=== PATIENT | female | born 1980 | race American Indian/Alaskan Native ===

== ENCOUNTER 2017-03-13 08:36 | Emergency (ER) | payer MEDICAID ==
[2017-03-13 08:46] VITALS: O2SAT 100; BMI 21.6
--- NOTE | 2017-03-13 09:58 | RAD ---
HISTORY: chest pain COMPARISON: 09/19/2016 TECHNIQUE: Chest PA and lateral FINDINGS: LUNGS: No active pulmonary disease. PLEURA: No significant pleural effusion identified. No pneumothorax apparent. CARDIOVASCULAR: Normal. OSSEOUS STRUCTURES: No significant abnormalities. VISUALIZED UPPER ABDOMEN: Normal. OTHER FINDINGS: None. IMPRESSION: No active disease.
[2017-03-13] MEDS ORDERED: guaiFENesin 200 mg/10 ml Syrup UD PO STA (10:04)
--- NOTE | 2017-03-13 10:08 | ED PDOC ---
Arrival/HPI - General Chief Complaint: Chest Pain Time Seen by Provider: 03/13/17 09:05 Historian: Patient - History of Present Illness Narrative History of Present Illness (Text): 03/13/17 10:05 36yo female who present with complaint of upper back and chest pain with deep inspiration and movement. States she started having nonproductive cough yesterday. Pain also started yesterday. Did not take any medication for the pain. Denies SOB, diaphoresis, LE edema, calf pain, fever, chills, sick contact , recent exertion, recent travel, any other complaint. Past Medical History - Provider Review Nursing Documentation Reviewed: Yes - Past History Past History: Non-Contributing - Infectious Disease Hx of Infectious Diseases: None - Tetanus Immunization Tetanus Immunization: Unknown - Past Medical History Past Medical History: No Previous - Cardiac Hx Cardiac Disorders: No - Pulmonary Hx Respiratory Disorders: No - Neurological Hx Neurological Disorder: No - HEENT Hx HEENT Disorder: No - Renal Hx Renal Disorder: Yes Hx Kidney Stones: Yes Other/Comment: Left renal cyst - Endocrine/Metabolic Hx Endocrine Disorders: No - Hematological/Oncological Hx Blood Disorders: No - Integumentary Hx Dermatological Disorder: No - Musculoskeletal/Rheumatological Hx Musculoskeletal Disorders: No - Gastrointestinal Hx Gastrointestinal Disorders: No - Genitourinary/Gynecological Hx Genitourinary Disorders: No - Psychiatric Hx Depression: No Hx Substance Use: No - Surgical History Hx Tubal Ligation: Yes Other/Comment: CYST REMOVED FROM LEFT KIDNEY - Anesthesia Hx Anesthesia: Yes Hx Anesthesia Reactions: No Hx Malignant Hyperthermia: No - Suicidal Assessment Feels Threatened In Home Enviroment: No Family/Social History - Physician Review Nursing Documentation Reviewed: Yes Family/Social History: Unknown Family HX Smoking Status: Light Smoker < 10 Cigarettes Daily Hx Alcohol Use: Yes Frequency of alcohol use: Socially Hx Substance Use: No Hx Substance Use Treatment: Yes Allergies/Home Meds Allergies/Adverse Reactions: Allergies No Known Allergies Allergy (Verified 03/13/17 09:07) Review of Systems - Physician Review All systems were reviewed & negative as marked: Yes - Review of Systems Constitutional: Normal Eyes: Normal ENT: Normal Respiratory: Cough. absent: SOB, Sputum, Wheezing Cardiovascular: Chest Pain Gastrointestinal: Normal Genitourinary Female: Normal Musculoskeletal: Back Pain Skin: Normal Neurological: Normal Endocrine: Normal Hemo/Lymphatic: Normal Psychiatric: Normal Physical Exam Vital Signs Reviewed: Yes Vital Signs Temp Pulse Resp BP Pulse Ox 03/13/17 10:36 97.8 F 72 16 112/72 100 03/13/17 09:37 69 18 128/89 100 03/13/17 08:45 98.0 F 74 18 131/92 H 100 Temperature: Afebrile Blood Pressure: Normal Pulse: Regular Respiratory Rate: Normal Appearance: Positive for: Well-Appearing, Non-Toxic, Comfortable Pain Distress: None Mental Status: Positive for: Alert and Oriented X 3 - Systems Exam Head: Present: Atraumatic, Normocephalic Pupils: Present: PERRL Extroacular Muscles: Present: EOMI Conjunctiva: Present: Normal Mouth: Present: Moist Mucous Membranes Neck: Present: Normal Range of Motion Respiratory/Chest: Present: Clear to Auscultation, Good Air Exchange. No: Respiratory Distress, Accessory Muscle Use, Wheezes, Decreased Breath Sounds, Rales, Retracting, Rhonchi Cardiovascular: Present: Regular Rate and Rhythm, Normal S1, S2. No: Murmurs Abdomen: Present: Normal Bowel Sounds. No: Tenderness, Distention, Peritoneal Signs Back: Present: Paraspinal Tenderness (Parathoracic tenderness) Upper Extremity: Present: Normal Inspection. No: Cyanosis, Edema Lower Extremity: Present: Normal Inspection. No: Edema Neurological: Present: GCS=15, CN II-XII Intact, Speech Normal Skin: Present: Warm, Dry, Normal Color. No: Rashes Psychiatric: Present: Alert, Oriented x 3, Normal Insight, Normal Concentration Medical Decision Making ED Course and Treatment: 03/13/17 14:48 Pt presented for stated history. She was hemodynamically stable in ED. Appear comfortable and non hypoxic. Her pain appear MS in origin. CXR NAD EKG Sinus rhythm with short CO @ 94bpm. No ST changes noted. PT treated with NSIAD and antitussive and DC home with similar medication. Referred to her PMD. Advised TRT ED for any new or worsening symptoms. - RAD Interpretation Radiology Orders: 03/13/17 09:21 CHEST TWO VIEWS (PA/LAT) [RAD] Stat - Medication Orders Current Medication Orders: Discontinued Medications Guaifenesin (Robitussin) 200 mg PO ONCE STA Stop: 03/13/17 10:05 Ketorolac Tromethamine (Toradol) 60 mg IM STAT STA Stop: 03/13/17 09:22 Last Admin: 05/04/17 09:36 Dose: 60 mg Disposition/Present on Arrival - Present on Arrival Any Indicators Present on Arrival: No History of DVT/PE: No History of Uncontrolled Diabetes: No Urinary Catheter: No History of Decub. Ulcer: No History Surgical Site Infection Following: None - Disposition Have Diagnosis and Disposition been Completed?: Yes Diagnosis: Chest pain, Back pain, Cough Disposition: HOME/ ROUTINE Disposition Time: 10:10 Patient Plan: Discharge Condition: STABLE Discharge Instructions (ExitCare): Chest Pain (ED) Additional Instructions: Follow up with your doctor Return to ED for any new or worsening symptoms Prescriptions: Benzonatate [Tessalon Perle] 100 mg PO TID #20 capsule Ibuprofen [Motrin Tab] 600 mg PO Q6 #20 tab Referrals: Edgardo Suresh MD [Primary Care Provider] - Follow up with primary
[2017-03-13 10:37] VITALS: BP 112/72; PULSE 72; RESP 16; TEMP 97.8
--- NOTE | 2017-03-13 17:13 | CARD ---
APPROVED REPORT EKG Measurement Heart [id number] <Conclusion> Sinus rhythm with short UT Otherwise normal ECG
== END 2017-03-13 10:36 | disposition home or self-care (01) ==
LOC: ED 08:36
DX: R07.9 Chest pain, unspecified (principal); M54.9 Dorsalgia, unspecified; R05 Cough
CPT/HCPCS: 71020; 93005; 96372; 99283; J1885

== ENCOUNTER 2018-01-08 09:33 | Inpatient (IN) | payer MEDICAID ==
[2018-01-08 09:41] VITALS: BMI 22.7
[2018-01-08] MEDS ORDERED: Sodium Chloride 0.9% 1,000 ML IV STA ×2 (09:56→15:12)
[2018-01-08] MEDS ORDERED: Iohexol 240 (50 ml) ONE (10:00)
--- NOTE | 2018-01-08 10:03 | ED PDOC ---
Arrival/HPI - General Chief Complaint: Abdominal Pain Time Seen by Provider: 01/08/18 09:39 Historian: Patient - History of Present Illness Narrative History of Present Illness (Text): 01/08/18 10:00 37 year old female, whose past medical history includes kidney stones, who presents to the emergency department for blood in stool since 3 days ago. Patient reports she has noticed dark stool with bright red blood associated with left sided abdominal pain and vomiting x2 with blood. BRB stool at least 2- 3 times daily. Some lightheadedness at times when she stands up. She also states having a migraine due to light sensitivity. Patient denies chest pain, shortness of breath, cough, diarrhea, or other complaints. Her last menstrual period was 12/30/2017. PMD: Dr. Suresh 01/08/18 13:46 Time/Duration: < week (3 days) Symptom Onset: Sudden Symptom Course: Unchanged Activities at Onset: Light Context: Home Past Medical History - Provider Review Nursing Documentation Reviewed: Yes - Past History Past History: Non-Contributing - Infectious Disease Hx of Infectious Diseases: None - Tetanus Immunization Tetanus Immunization: Unknown - Past Medical History Past Medical History: No Previous - Cardiac Hx Cardiac Disorders: No - Pulmonary Hx Respiratory Disorders: No - Neurological Hx Seizures: Yes - HEENT Hx HEENT Disorder: No - Renal Hx Renal Disorder: Yes Hx Kidney Stones: Yes Other/Comment: Left renal cyst - Endocrine/Metabolic Hx Endocrine Disorders: No - Hematological/Oncological Hx Blood Disorders: No - Integumentary Hx Dermatological Disorder: No - Musculoskeletal/Rheumatological Hx Musculoskeletal Disorders: No - Gastrointestinal Hx Gastrointestinal Disorders: No - Genitourinary/Gynecological Hx Genitourinary Disorders: No - Psychiatric Hx Depression: No Hx Substance Use: No - Surgical History Hx Tubal Ligation: Yes Other/Comment: CYST REMOVED FROM LEFT KIDNEY - Anesthesia Hx Anesthesia: Yes Hx Anesthesia Reactions: No Hx Malignant Hyperthermia: No - Suicidal Assessment Feels Threatened In Home Enviroment: No Family/Social History - Physician Review Nursing Documentation Reviewed: Yes Family/Social History: Unknown Family HX Smoking Status: Light Smoker < 10 Cigarettes Daily Hx Alcohol Use: Yes Hx Substance Use: No Hx Substance Use Treatment: Yes Allergies/Home Meds Allergies/Adverse Reactions: Allergies No Known Allergies Allergy (Verified 01/08/18 09:50) Home Medications: Home Meds Medication Instructions Recorded Confirmed No Known Home Med 01/08/18 01/08/18 Review of Systems - Review of Systems Constitutional: absent: Fevers Respiratory: absent: SOB Cardiovascular: absent: Chest Pain Gastrointestinal: Abdominal Pain (left sided region), Vomiting, Hematochezia, Hematemesis. absent: Diarrhea Genitourinary Female: absent: Dysuria, Frequency, Hematuria Musculoskeletal: absent: Back Pain Skin: absent: Rash Neurological: Headache Endocrine: absent: Polyuria Physical Exam Vital Signs Reviewed: Yes Vital Signs Temp Pulse Resp BP Pulse Ox 01/08/18 11:19 87 18 131/86 100 01/08/18 09:40 98.2 F 89 18 138/89 100 Temperature: Afebrile Blood Pressure: Normal Pulse: Regular Respiratory Rate: Normal Appearance: Positive for: Well-Appearing, Non-Toxic, Comfortable Pain Distress: None Mental Status: Positive for: Alert and Oriented X 3 - Systems Exam Head: Present: Atraumatic, Normocephalic Pupils: Present: PERRL Extroacular Muscles: Present: EOMI Conjunctiva: Present: Normal Mouth: Present: Moist Mucous Membranes Respiratory/Chest: Present: Clear to Auscultation, Good Air Exchange. No: Respiratory Distress, Accessory Muscle Use, Wheezes, Rales, Retracting, Rhonchi Cardiovascular: Present: Regular Rate and Rhythm, Normal S1, S2. No: Murmurs Abdomen: Present: Tenderness (left upper quadrant ), Normal Bowel Sounds, Guarding (LUQ and left mid abdomen). No: Distention, Peritoneal Signs Rectal: Present: Other (dark stook but no blood. supply room clerk: Alvina Dmitry). No : Hemorrhoids, Fissures Genitourinary/Pelvic Exam: Present: Normal External Genitalia, Vaginal Bleeding (mild amount of blood). No: Vaginal Discharge, Vaginal Lesions Back: Present: Normal Inspection. No: Midline Tenderness, Paraspinal Tenderness Lower Extremity: Present: Normal Inspection. No: Edema Neurological: Present: GCS=15, CN II-XII Intact, Speech Normal Skin: Present: Warm, Dry, Normal Color. No: Rashes Psychiatric: Present: Alert, Oriented x 3, Normal Insight, Normal Concentration Medical Decision Making ED Course and Treatment: 01/08/18 Impression: 37 year old female with LUQ tenderness with guarding and dark stool but no blood. Differential Diagnosis included but are not limited to: GI bleed vs. diverticulitis vs. pancreatitis Plan: -- CT abdomen and pelvis -- Labs -- Protonix and Sodium Chloride -- Reassess and disposition Progress Notes: 01/08/18 13:47 Patient felt pain improve with Protonix and fluids IV. Pain has returned so will treat with Morphine IV. Patient's CT shows colitis with diverticulosis. Cipro and Flagyl IV started. Continue hydration. Patient still having symptoms. Abdomen soft and tender left sided abdomen with gaurding. No rebound. 01/08/18 13:[address] Lamberto Martinez for further GI care for this patient. Will place patient on remote telemetry observation for Gi bleed, colitis, diverticulsosis. 01/08/18 13:59 Accession No. : [id number] Patient Name / ID : ELISABET HARDEN / [id number] Creator : Freeman Ramirez MD PROCEDURE: CT Abdomen and Pelvis with contrast IMPRESSION: There is mild mural thickening in the ascending and descending colon. This is consistent with mild colitis. There is also diverticulosis of the sigmoid colon. - Lab Interpretations Lab Results: 01/08/18 10:30 01/08/18 10:30 Lab Results 01/08/18 10:30: Sodium 142, Potassium 3.7, Chloride 105, Carbon Dioxide 23, Anion Gap 18, BUN 7, Creatinine 0.6 L, Est GFR ( Amer) > 60, Est GFR (Non -Af Amer) > 60, Random Glucose 88, Calcium 9.1, Total Bilirubin 0.2, AST 33, ALT 23, Alkaline Phosphatase 32 L, Total Protein 6.9, Albumin 4.1, Globulin 2.8 , Albumin/Globulin Ratio 1.4, Triglycerides 162 H, Cholesterol 143, LDL Cholesterol Direct 42, HDL Cholesterol 86 H, Lipase 83 01/08/18 10:30: PT 12.4, INR 1.08, APTT 25.3 01/08/18 10:30: WBC 5.1, RBC 3.70, Hgb 12.1, Hct 35.1 L, MCV 94.9, MCH 32.7, MCHC 34.5, RDW 14.3, Plt Count 226, MPV 9.4, Gran % 39.8 L, Lymph % (Auto) 51.7 H, [place] % (Auto) 5.7, Eos % (Auto) 2.0, Baso % (Auto) 0.8, Gran # 2.02, Lymph # (Auto) 2.6, [place] # (Auto) 0.3, Eos # (Auto) 0.1, Baso # (Auto) 0.04 I have reviewed the lab results: Yes - RAD Interpretation Radiology Orders: 01/08/18 09:56 ABD PELVIS PO & IV CONTRAST [CT] Stat Tax Intern: Radiologist - Medication Orders Current Medication Orders: Ciprofloxacin (Cipro 400mg/200ml Dsw) 400 mg in 200 mls @ 133.3 mls/hr IVPB STAT STA PRN Reason: Protocol Stop: 01/08/18 14:37 Metronidazole (Flagyl) 500 mg in 100 mls @ 100 mls/hr IVPB STAT STA PRN Reason: Protocol Stop: 01/08/18 14:06 Discontinued Medications Sodium Chloride (Sodium Chloride 0.9%) 1,000 mls @ 1,000 mls/hr IV .Q1H STA Stop: 01/08/18 10:55 Last Admin: 01/08/18 10:15 Dose: 1,000 mls/hr eMAR Start Stop Document 01/08/18 10:15 ASHKAN (Rec: 01/08/18 10:16 ASHKAN [id number]) Intravenous Solution Start Date 01/08/18 Start Time 10:16 End Date 01/08/18 End time 11:16 Total Infusion Time 60 Morphine Sulfate (Morphine) 4 mg IVP STAT STA Stop: 01/08/18 13:47 Pantoprazole Sodium (Protonix Inj) 80 mg IVP STAT STA Stop: 01/08/18 09:58 Last Admin: 01/08/18 10:17 Dose: 80 mg IVP Administration Document 01/08/18 10:17 ASHKAN (Rec: 01/08/18 10:17 ASHKAN [id number]) Charges for Administration # of IVP Administrations 1 - Scribe Statement The provider has reviewed the documentation as recorded by the Myah Andres Provider Scribe Attestation: All medical record entries made by the Scribe were at my direction and personally dictated by me. I have reviewed the chart and agree that the record accurately reflects my personal performance of the history, physical exam, medical decision making, and the department course for this patient. I have also personally directed, reviewed, and agree with the discharge instructions and disposition. Disposition/Present on Arrival - Present on Arrival Any Indicators Present on Arrival: No History of DVT/PE: No History of Uncontrolled Diabetes: No Urinary Catheter: No History of Decub. Ulcer: No History Surgical Site Infection Following: None - Disposition Have Diagnosis and Disposition been Completed?: Yes Diagnosis: GI bleed, Diverticulosis, Colitis Disposition: HOSPITALIZED Disposition Time: 13:49 Patient Plan: Observation Patient Problems: Current Active Problems Problem Status Onset GI bleed Acute Diverticulosis Acute Colitis Acute Condition: FAIR Referrals: [employer] Radha Req, [Primary Care Provider] - Follow up with primary Forms: [employer] (Indonesian)
[2018-01-08 10:48] LABS: BASO # 0.04 K/mm3 (0.0-2.0); BASO % 0.8 % (0.0-3.0); EOS # 0.1 (0.0-0.7); GRAN # 2.02 (1.4-6.5); GRAN % 39.8 % (50.0-68.0); HEMOGLOBIN 12.1 g/dL (12.0-16.0); LYMPH # 2.6 (1.2-3.4); LYMPH % 51.7 % (22.0-35.0); MEAN CELL VOLUME 94.9 fl (80.0-105.0); MEAN CORPUSCULAR HEMOGLOBIN 32.7 pg (25.0-35.0); MEAN CORPUSCULAR HGB CONC 34.5 g/dl (31.0-37.0); MEAN PLATELET VOLUME 9.4 fl (7.0-11.0); MONO # 0.3 (0.1-0.6); MONO % 5.7 % (1.0-6.0); RBC 3.7 10^6/uL (3.5-6.1); RED CELL DISTRIBUTION WIDTH 14.3 % (11.5-14.5); WHITE BLOOD COUNT 5.1 10^3/ul (4.5-11.0)
[2018-01-08 10:52] LABS: ALB/GLOB RATIO 1.4 (1.1-1.8); ALBUMIN 4.1 g/dL (3.0-4.8); ALT/SGPT 23 U/L (7-56); AST/SGOT 33 U/L (14-36); BLOOD UREA NITROGEN 7 mg/dL (7-21); CALCIUM 9.1 mg/dL (8.4-10.5); GFR AFRICAN-AMERICAN > 60; GFR NON-AFRICAN AMERICAN > 60; HDL CHOLESTEROL 86 mg/dL (29-60); LIPASE 83 U/L (23-300)
[2018-01-08 10:53] LABS: INR 1.08 (0.93-1.08); PARTIAL THROMBOPLASTIN TIME 25.3 Seconds (25.1-36.5); PROTHROMBIN TIME 12.4 SECONDS (9.4-12.5)
[2018-01-08 11:03] LABS: LDL CHOLESTEROL 42 mg/dL (0-129)
[2018-01-08] MEDS ORDERED: Iohexol 350 MG/100 ML VIAL ONE (11:46)
--- NOTE | 2018-01-08 12:53 | CT ---
PROCEDURE: CT Abdomen and Pelvis with contrast HISTORY: left sided abdominal pain r/o colitis r/o divertic COMPARISON: 11/15/2016 TECHNIQUE: Contrast dose: 100 cc of Omni 350 Radiation dose: Total exam DLP = 379 mGy-cm. This CT exam was performed using one or more of the following dose reduction techniques: Automated exposure control, adjustment of the mA and/or kV according to patient size, and/or use of iterative reconstruction technique. FINDINGS: LOWER THORAX: Unremarkable. LIVER: Unremarkable. No gross lesion or ductal dilatation. GALLBLADDER AND BILE DUCTS: Unremarkable. PANCREAS: Unremarkable. No gross lesion or ductal dilatation. SPLEEN: Unremarkable. ADRENALS: Unremarkable. No mass. KIDNEYS AND URETERS: There is a calcified scar in the left upper pole. The right kidney is unremarkable VASCULATURE: Unremarkable. No aortic aneurysm. BOWEL: There is mild mural thickening in the ascending and descending colon. This is consistent with mild colitis. There is also diverticulosis of the sigmoid colon. APPENDIX: Normal appendix. PERITONEUM: Unremarkable. No free fluid. No free air. LYMPH NODES: Unremarkable. No enlarged lymph nodes. BLADDER: Unremarkable. REPRODUCTIVE: Unremarkable. BONES: No acute fracture. OTHER FINDINGS: None. IMPRESSION: There is mild mural thickening in the ascending and descending colon. This is consistent with mild colitis. There is also diverticulosis of the sigmoid colon.
[2018-01-08] MEDS ORDERED: Ciprofloxacin 400mg/200ml D5W 400 MG/200 ML BAG IVPB STA (13:07)
[2018-01-08] MEDS ORDERED: metroNIDAZOLE IV 500 mg/100 ml 500 MG/100 ML BAG IVPB STA (13:07)
[2018-01-08] MEDS ORDERED: Morphine 4 mg/ml ISec IVP STA (13:46)
[2018-01-08] MEDS ORDERED: Morphine 2 mg/ml ISec IVP PRN (15:10)
--- NOTE | 2018-01-08 15:36 | CP.PCM.HP ---
<NikhilNeyda - Last Filed: 01/08/18 18:06> History of Present Illness - History of Present Illness History of Present Illness: CC: bloody emesis x2 HPI: Patient is a 37 YO female with PMH of nephrolithiasis who presents to the [facility] ED with bilious bloody emesis x2 this morning. Patient describes the vomit as a mix of light red/pink blood and green liquid. Patient also had crampy left sided abdominal pain just under the rib cage associated with the episodes. Abdominal pain has been ongoing for a few days. Patient admits to bloody bowel movements which started 3 days ago. Patient saw dark brown colored blood in the stool. Stool was more loose than usual. Patient has never had anything like this before. Patient admits to subjective fever, chills, nausea prior to vomiting, migraine x3 days, bloody diarrhea, abdominal pain. Patient denies chest pain, SOB, pain with defecation, urinary symptoms. PMH: nephrolithiasis Surgical hx: tubal ligation - 2007 , left cyst removal, lithotripsy - 7 months ago Allergies: NKDA Medications: denies Social hx: smokes 1/2 PPD x7 years, drinks every weekend, denies drug use Present on Admission - Present on Admission Any Indicators Present on Admission: No History of DVT/PE: No History of Uncontrolled Diabetes: No Review of Systems - Review of Systems All systems: reviewed and no additional remarkable complaints except Review of Systems: As per HPI Past Patient History - Infectious Disease Hx of Infectious Diseases: None - Tetanus Immunizations Tetanus Immunization: Unknown - Past Social History Smoking Status: Light Smoker < 10 Cigarettes Daily - CARDIAC Hx Cardiac Disorders: No - PULMONARY Hx Respiratory Disorders: No - NEUROLOGICAL Hx Seizures: Yes - HEENT Hx HEENT Problems: No - RENAL Hx Chronic Kidney Disease: Yes Hx Kidney Stones: Yes Other/Comment: Left renal cyst - ENDOCRINE/METABOLIC Hx Endocrine Disorders: No - HEMATOLOGICAL/ONCOLOGICAL Hx Blood Disorders: No - INTEGUMENTARY Hx Dermatological Problems: No - MUSCULOSKELETAL/RHEUMATOLOGICAL Hx Musculoskeletal Disorders: No - GASTROINTESTINAL Hx Gastrointestinal Disorders: No - GENITOURINARY/GYNECOLOGICAL Hx Genitourinary Disorders: No - PSYCHIATRIC Hx Depression: No Hx Substance Use: No - SURGICAL HISTORY Hx Tubal Ligation: Yes Other/Comment: CYST REMOVED FROM LEFT KIDNEY - ANESTHESIA Hx Anesthesia: Yes Hx Anesthesia Reactions: No Hx Malignant Hyperthermia: No Meds Allergies/Adverse Reactions: Allergies Allergy/AdvReac Type Severity Reaction Status Date / Time No Known Allergies Allergy Verified 01/08/18 09:50 Physical Exam - Head Exam Head Exam: ATRAUMATIC, NORMOCEPHALIC - Eye Exam Eye Exam: Normal appearance - ENT Exam ENT Exam: Mucous Membranes Moist - Neck Exam Neck exam: Positive for: Normal Inspection - Respiratory Exam Respiratory Exam: Clear to Auscultation Bilateral, NORMAL BREATHING PATTERN. absent: Accessory Muscle Use, Rales, Rhonchi, Wheezes, Respiratory Distress - Cardiovascular Exam Cardiovascular Exam: REGULAR RHYTHM, RRR, +S1, +S2. absent: Tachycardia - GI/Abdominal Exam GI & Abdominal Exam: Soft, Tenderness. absent: Distended, Firm, Guarding, Rebound, Rigid - Extremities Exam Extremities exam: Positive for: normal inspection - Neurological Exam Neurological exam: Alert, Oriented x3 - Skin Skin Exam: Dry, Intact Results - Vital Signs Recent Vital Signs: Last Vital Signs Temp 98.2 F 01/08/18 09:40 Pulse 87 01/08/18 11:19 Resp 18 01/08/18 11:19 BP 131/86 01/08/18 11:19 Pulse Ox 100 01/08/18 11:19 - Labs Result Diagrams: 01/08/18 10:30 01/08/18 10:30 Assessment & Plan - Assessment and Plan (Free Text) Assessment: Colitis Abdominal pain, nausea, vomiting, diarrhea CT abdomen/pelvis ascending and descending mural wall thickening consistent with Colitis, sigmoid diverticulosis NS @ 100cc/hr Val[facility] P[facility] GI Consult: Dr. Castaneda ED: radha Plunkett Diet:NPO Nausea: Zofran IVP Pain: Morphine 2mg IVP Q6H PRN Pain Prophylaxis Protonix SCDs discussed with Dr. Rodas - Date & Time Date: 01/08/18 Time: 15:39 <Mandi Rodas - Last Filed: 01/08/18 21:12> Results - Vital Signs Recent Vital Signs: Last Vital Signs Temp 98.2 F 01/08/18 16:53 Pulse 92 H 01/08/18 18:00 Resp 18 01/08/18 16:53 BP 131/86 01/08/18 16:53 Pulse Ox 100 01/08/18 16:00 - Labs Result Diagrams: 01/08/18 10:30 01/08/18 10:30 Labs: Laboratory Results - last 24 hr 01/08/18 01/08/18 15:15 17:00 Blood Type A POSITIVE Blood Type Confirm A POSITIVE Antibody Screen Negative BBK History Checked No verified bt Attending/Attestation - Attestation I have personally seen and examined this patient.: Yes I have fully participated in the care of the patient.: Yes I have reviewed all pertinent clinical information: Yes Notes (Text): 01/08/18 21:09 37 year old female who presented with complaint of left sided abdominal pain, nausea, vomiting and diarrhea. CT abd/pelvis showed mild ascending/descending colitis and sigmoid diverticulosis. Continue with NPO, IVF, analgesics and antibiotics. GI evaluation is requested. Mandi Rodas MD Hospitalist.
[2018-01-08] MEDS: Sodium Chloride 0.9% 1,000 ML IV SCH (16:50)
[2018-01-08] MEDS: Morphine 2 mg/ml ISec IVP PRN ×2 (16:54→21:55)
[2018-01-08] MEDS ORDERED: Influenza Vaccine 60 mcg/0.5 mL SYR (4YR UP) IM ONE (17:11)
[2018-01-08] MEDS ORDERED: Pneumococcal 23-Valent Vaccine IM ONE (17:11)
[2018-01-08] MEDS: metroNIDAZOLE IV 500 mg/100 ml 500 MG/100 ML BAG IVPB SCH (21:55)
[2018-01-09] MEDS: Morphine 2 mg/ml ISec IVP PRN ×4 (04:36→19:31)
[2018-01-09] MEDS: metroNIDAZOLE IV 500 mg/100 ml 500 MG/100 ML BAG IVPB SCH ×3 (06:09→21:28)
--- NOTE | 2018-01-09 11:56 | CP.PCM.PN ---
<NikhilNeyda - Last Filed: 01/09/18 13:50> Subjective - Date & Time of Evaluation Date of Evaluation: 01/09/18 Time of Evaluation: 11:45 - Subjective Subjective: Progress Note Patient seen and examined at bedside. Patient tolerating pain, but still has pain on left upper and lower quadrants. Patient states since the last interview patient did not have diarrhea until this morning 01/09/18. Patient also complains of a burning feeling in midepigastric and left upper quadrant. Objective - Vital Signs/Intake and Output Vital Signs (last 24 hours): Temp Pulse Resp BP Pulse Ox 98.4 F 74 18 123/92 H 100 01/09/18 08:23 01/09/18 08:23 01/09/18 08:23 01/09/18 08:23 01/09/18 08:23 - Medications Medications: Current Medications Acetaminophen (Tylenol 325mg Tab) 650 mg PO Q4H PRN PRN Reason: Fever >100.5 F Famotidine (Pepcid) 20 mg IVP DAILY [facility] Last Admin: 01/09/18 09:08 Dose: 20 mg Sodium Chloride (Sodium Chloride 0.9%) 1,000 mls @ 100 mls/hr IV .Q10H [facility] Last Admin: 01/08/18 16:50 Dose: 100 mls/hr Metronidazole (Flagyl) 500 mg in 100 mls @ 100 mls/hr IVPB Q8H [facility] PRN Reason: Protocol Last Admin: 01/09/18 06:09 Dose: 100 mls/hr Ceftriaxone Sodium 500 mg/ (Sodium Chloride) 100 mls @ 100 mls/hr IVPB Q12 [facility] PRN Reason: Protocol Stop: 01/13/18 22:59 Morphine Sulfate (Morphine) 1 mg IVP Q6H PRN PRN Reason: Pain, moderate (4-7) Last Admin: 01/09/18 04:36 Dose: 1 mg Morphine Sulfate (Morphine) 2 mg IVP Q6H PRN PRN Reason: Pain, severe (8-10) Last Admin: 01/09/18 08:09 Dose: 2 mg Ondansetron HCl (Zofran Inj) 4 mg IVP Q4H PRN PRN Reason: Nausea/Vomiting Last Admin: 01/08/18 21:56 Dose: 4 mg Ondansetron HCl (Zofran Tab) 4 mg PO Q8H PRN PRN Reason: Nausea/Vomiting - Labs Labs: PT 12.4 SECONDS (9.4-12.5) 01/08/18 10:30 INR 1.08 (0.93-1.08) 01/08/18 10:30 APTT 25.3 Seconds (25.1-36.5) 01/08/18 10:30 - Constitutional Appears: Non-toxic, No Acute Distress - Head Exam Head Exam: ATRAUMATIC, NORMAL INSPECTION, NORMOCEPHALIC - Eye Exam Eye Exam: EOMI, Normal appearance, PERRL. absent: Scleral icterus Pupil Exam: NORMAL ACCOMODATION, PERRL - ENT Exam ENT Exam: Mucous Membranes Moist - Neck Exam Neck Exam: Full ROM, Normal Inspection - Respiratory Exam Respiratory Exam: Clear to Ausculation Bilateral, NORMAL BREATHING PATTERN. absent: Accessory Muscle Use - Cardiovascular Exam Cardiovascular Exam: REGULAR RHYTHM, +S1, +S2 - GI/Abdominal Exam GI & Abdominal Exam: Soft, Tenderness (left upper and left lower quadrant. no tenderness on right upper or lower quadrant). absent: Distended, Guarding, Rigid, Diminished Bowel Sounds, Pulsatile Mass, Rebound - Extremities Exam Extremities Exam: Full ROM, Normal Capillary Refill, Normal Inspection. absent : Pedal Edema - Back Exam Back Exam: Full ROM, NORMAL INSPECTION - Neurological Exam Neurological Exam: Alert, Awake, CN II-XII Intact, Oriented x3 - Psychiatric Exam Psychiatric exam: Normal Affect, Normal Mood - Skin Skin Exam: Dry, Intact, Normal Color, Warm Assessment and Plan - Assessment and Plan (Free Text) Assessment: 37F with no pmh, presents with abdominal pain, hematemasis and bloody diarrhea, found to have ascending and descending wall thickening indicative of colitis, and sigmoid diverticulosis on CT scan abdomen/pelvis Colitis Abdominal pain, nausea, vomiting, diarrhea CT abdomen/pelvis ascending and descending mural wall thickening consistent with Colitis, sigmoid diverticulosis NS @ 100cc/hr [facility] GI Consult: Dr. Castaneda ED: radha Plunkett Patient is on Rocephinradha Diet: advanced to liquid diet Nausea: Zofran IVP Pain: Morphine 2mg IVP Q6H PRN Pain Prophylaxis Protonix SCDs discussed with Dr. Rodas <Mandi Rodas - Last Filed: 01/09/18 14:15> Objective - Vital Signs/Intake and Output Vital Signs (last 24 hours): Temp Pulse Resp BP Pulse Ox 98.4 F 74 18 123/92 H 100 01/09/18 08:23 01/09/18 08:23 01/09/18 08:23 01/09/18 08:23 01/09/18 08:23 - Medications Medications: Current Medications Acetaminophen (Tylenol 325mg Tab) 650 mg PO Q4H PRN PRN Reason: Fever >100.5 F Famotidine (Pepcid) 20 mg IVP DAILY [facility] Last Admin: 01/09/18 09:08 Dose: 20 mg Sodium Chloride (Sodium Chloride 0.9%) 1,000 mls @ 100 mls/hr IV .Q10H [facility] Last Admin: 01/09/18 12:46 Dose: 100 mls/hr Metronidazole (Flagyl) 500 mg in 100 mls @ 100 mls/hr IVPB Q8H [facility] PRN Reason: Protocol Last Admin: 01/09/18 12:46 Dose: 100 mls/hr Ceftriaxone Sodium 500 mg/ (Sodium Chloride) 100 mls @ 100 mls/hr IVPB Q12 [facility] PRN Reason: Protocol Stop: 01/13/18 22:59 Morphine Sulfate (Morphine) 1 mg IVP Q6H PRN PRN Reason: Pain, moderate (4-7) Last Admin: 01/09/18 04:36 Dose: 1 mg Morphine Sulfate (Morphine) 2 mg IVP Q6H PRN PRN Reason: Pain, severe (8-10) Last Admin: 01/09/18 13:45 Dose: 2 mg Ondansetron HCl (Zofran Inj) 4 mg IVP Q4H PRN PRN Reason: Nausea/Vomiting Last Admin: 01/08/18 21:56 Dose: 4 mg Ondansetron HCl (Zofran Tab) 4 mg PO Q8H PRN PRN Reason: Nausea/Vomiting - Labs Labs: PT 12.4 SECONDS (9.4-12.5) 01/08/18 10:30 INR 1.08 (0.93-1.08) 01/08/18 10:30 APTT 25.3 Seconds (25.1-36.5) 01/08/18 10:30 Attending/Attestation - Attestation I have personally seen and examined this patient.: Yes I have fully participated in the care of the patient.: Yes I have reviewed all pertinent clinical information, including history, physical exam and plan: Yes Notes (Text): 01/09/18 14:14 37 year old female who presented with complaint of left sided abdominal pain, nausea, vomiting and diarrhea. CT abd/pelvis showed mild ascending/descending colitis and sigmoid diverticulosis. Continue with analgesics and antibiotics. GI is following and diet is advanced to liquids. Today she complains of burning sensation in stomach and ?dysuria. Continue with PPI. UA/Ucx is also ordered. Mandi Rodas MD Hospitalist.
[2018-01-09] MEDS: Sodium Chloride 0.9% 1,000 ML IV SCH (12:46)
--- NOTE | 2018-01-09 14:51 | US ---
HISTORY: abdominal bloating COMPARISON: CT abdomen and pelvis from 01/08/2018 TECHNIQUE: Sonographic evaluation of the abdomen. FINDINGS: LIVER: Measures 14.0 cm. Normal echogenicity of the liver parenchyma. No mass. No intrahepatic bile duct dilatation. GALLBLADDER: There are no gallstones, wall thickening or pericholecystic fluid. The sonographic Disla's sign is negative. COMMON BILE DUCT: Measures 3.4 mm. No stones. No dilatation. PANCREAS: Unremarkable as visualized. No mass. No ductal dilatation. RIGHT KIDNEY: Measures 10.8cm. Normal echogenicity. No calculus, mass, or hydronephrosis. LEFT KIDNEY: Measures 10.6cm. Normal echogenicity. No calculus, mass, or hydronephrosis. SPLEEN: Normal in size and contour. No mass. AORTA: No aneurysmal dilatation. IVC: Unremarkable. OTHER FINDINGS: None. IMPRESSION: Normal examination.
--- NOTE | 2018-01-09 16:17 | CP.PCM.CON ---
<Barbara Marques - Last Filed: 01/09/18 16:11> History of Present Illness - History of Present Illness History of Present Illness: S&E at bedside, chart reviewed. Request for GI consult is for colitis. HPI: This is a 37-year-old female with past medical history of nephrolithiasis, denies any further medical history. Came to the emergency room with complaints of vomiting 2 yesterday. The patient states that when she initially vomited it was bilious then noted blood. She does complain of mostly left-sided abdominal pain, mainly in the left lower quadrant and diarrhea 3 days. Patient endorses noticing blood in her stool. Her last bowel movement was this morning and it was soft and green appearing. Does complain of having chills. Denies any intermittent insists symptoms prior to this. Denies any sick contacts, recent antibiotic use, travel or contributing oral intake. she also complains of feeling bloated, denies any symptoms of reflux. On admission she had a CT scan of abdomen and pelvis which reported mural thickening in the ascending and descending colon consistent with mild colitis, there is also diverticulosis of the sigmoid colon. 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 Surgical history: Tubal ligation, left cyst removal in the kidney, lithotripsy 7 months ago Allergies: No known drug allergies Medications: Reviewed as per MAR Social history: Positive for smoking, drinks only on weekends at least 4 glasses of alcohol, denies recreational drug use Family history: Mother: Diabetes 2 with throat cancer, history of smoking, grandfather: Cancer, not sure if it's colon cancer LMP: 12/30/2017 ROS: Systems reviewed a positive finding see HPI Past Patient History - Infectious Disease Hx of Infectious Diseases: None - Tetanus Immunizations Tetanus Immunization: Unknown - Past Social History Smoking Status: Light Smoker < 10 Cigarettes Daily - CARDIAC Hx Cardiac Disorders: No - PULMONARY Hx Respiratory Disorders: No - NEUROLOGICAL Hx Seizures: Yes - HEENT Hx HEENT Problems: No - RENAL Hx Chronic Kidney Disease: Yes Hx Kidney Stones: Yes Other/Comment: Left renal cyst - ENDOCRINE/METABOLIC Hx Endocrine Disorders: No - HEMATOLOGICAL/ONCOLOGICAL Hx Blood Disorders: No - INTEGUMENTARY Hx Dermatological Problems: No - MUSCULOSKELETAL/RHEUMATOLOGICAL Hx Musculoskeletal Disorders: No - GASTROINTESTINAL Hx Gastrointestinal Disorders: No - GENITOURINARY/GYNECOLOGICAL Hx Genitourinary Disorders: No - PSYCHIATRIC Hx Depression: No Hx Substance Use: No - SURGICAL HISTORY Hx Tubal Ligation: Yes Other/Comment: CYST REMOVED FROM LEFT KIDNEY - ANESTHESIA Hx Anesthesia: Yes Hx Anesthesia Reactions: No Hx Malignant Hyperthermia: No Meds Home Medications: Home Medication List Medication Instructions Recorded Confirmed Type Ciprofloxacin HCl [Cipro] 500 mg PO BID #16 tab 01/12/18 Rx Magnesium Oxide [Mag-Ox] 400 mg PO BID #6 tab 01/12/18 Rx Metronidazole [Flagyl] 500 mg PO TID #24 tab 01/12/18 Rx Ondansetron HCl [Zofran] 8 mg PO Q6H #32 tab 01/12/18 Rx Pantoprazole Sodium [Protonix] 40 mg PO DAILY #14 ect 01/12/18 Rx oxyCODONE/Acetaminophen [Percocet 1 tab PO Q6 PRN 3 Days #12 tab 01/12/18 Rx 5/325 mg Tab] Allergies/Adverse Reactions: Allergies Allergy/AdvReac Type Severity Reaction Status Date / Time No Known Allergies Allergy Verified 01/08/18 09:50 - Medications Medications: Current Medications Acetaminophen (Tylenol 325mg Tab) 650 mg PO Q4H PRN PRN Reason: Fever >100.5 F Famotidine (Pepcid) 20 mg IVP DAILY [facility] Last Admin: 01/09/18 09:08 Dose: 20 mg Sodium Chloride (Sodium Chloride 0.9%) 1,000 mls @ 100 mls/hr IV .Q10H [facility] Last Admin: 01/09/18 12:46 Dose: 100 mls/hr Metronidazole (Flagyl) 500 mg in 100 mls @ 100 mls/hr IVPB Q8H [facility] PRN Reason: Protocol Last Admin: 01/09/18 12:46 Dose: 100 mls/hr Ceftriaxone Sodium 500 mg/ (Sodium Chloride) 100 mls @ 100 mls/hr IVPB Q12 [facility] PRN Reason: Protocol Stop: 01/13/18 22:59 Morphine Sulfate (Morphine) 1 mg IVP Q6H PRN PRN Reason: Pain, moderate (4-7) Last Admin: 01/09/18 04:36 Dose: 1 mg Morphine Sulfate (Morphine) 2 mg IVP Q6H PRN PRN Reason: Pain, severe (8-10) Last Admin: 01/09/18 08:09 Dose: 2 mg Ondansetron HCl (Zofran Inj) 4 mg IVP Q4H PRN PRN Reason: Nausea/Vomiting Last Admin: 01/08/18 21:56 Dose: 4 mg Ondansetron HCl (Zofran Tab) 4 mg PO Q8H PRN PRN Reason: Nausea/Vomiting Physical Exam - Constitutional Appears: No Acute Distress - Head Exam Head Exam: NORMOCEPHALIC - Eye Exam Eye Exam: Normal appearance. absent: Scleral icterus - ENT Exam ENT Exam: Mucous Membranes Moist - Neck Exam Neck exam: Positive for: Normal Inspection - Respiratory Exam Respiratory Exam: Clear to Auscultation Bilateral, NORMAL BREATHING PATTERN. absent: Respiratory Distress - Cardiovascular Exam Cardiovascular Exam: +S1, +S2 - GI/Abdominal Exam GI & Abdominal Exam: Normal Bowel Sounds, Soft, Tenderness (left lower quadrant) . absent: Guarding, Rebound - Extremities Exam Extremities exam: Positive for: pedal pulses present. Negative for: calf tenderness, pedal edema - Neurological Exam Neurological exam: Alert, Oriented x3 - Skin Skin Exam: Dry, Warm Results - Vital Signs Recent Vital Signs: Last Vital Signs Temp 98.4 F 01/09/18 08:23 Pulse 74 01/09/18 08:23 Resp 18 01/09/18 08:23 BP 123/92 H 01/09/18 08:23 Pulse Ox 100 01/09/18 08:23 - Labs Result Diagrams: 01/08/18 10:30 01/08/18 10:30 Assessment & Plan - Assessment and Plan (Free Text) Assessment: Assessment: Colitis, differentials to consider is infectious, inflammatory or ischemic, N/V D, with bloody BM, ? gastroenteritis, ? IBD History of nephrolithiasis Abdominal bloating Plan: Request abdominal ultrasound On IV antibiotics of Flagyl and ceftriaxone Will start clear liquids Continue GI prophylaxis SCD may benefit from egd if continue it have N/V, will monitor, consider colon when colitis has resolved 6 weeks Monitor H&H and for overt GI bleed Thank you for this consult and follow us participate in your patient's care. Further recommendations based on clinical course. Seen and discussed with Dr. Castaneda. <Mckayla Castaneda V - Last Filed: 01/14/18 16:20> Meds - Medications Medications: Current Medications Acetaminophen (Tylenol 325mg Tab) 650 mg PO Q4H PRN PRN Reason: Fever >100.5 F Famotidine (Pepcid) 20 mg IVP DAILY [facility] Last Admin: 01/09/18 09:08 Dose: 20 mg Sodium Chloride (Sodium Chloride 0.9%) 1,000 mls @ 100 mls/hr IV .Q10H [facility] Last Admin: 01/09/18 12:46 Dose: 100 mls/hr Metronidazole (Flagyl) 500 mg in 100 mls @ 100 mls/hr IVPB Q8H [facility] PRN Reason: Protocol Last Admin: 01/09/18 21:28 Dose: 100 mls/hr Ceftriaxone Sodium 500 mg/ (Sodium Chloride) 100 mls @ 100 mls/hr IVPB Q12 [facility] PRN Reason: Protocol Stop: 01/13/18 22:59 Last Admin: 01/09/18 21:29 Dose: 100 mls/hr Morphine Sulfate (Morphine) 1 mg IVP Q6H PRN PRN Reason: Pain, moderate (4-7) Last Admin: 01/09/18 04:36 Dose: 1 mg Morphine Sulfate (Morphine) 2 mg IVP Q6H PRN PRN Reason: Pain, severe (8-10) Last Admin: 01/09/18 19:31 Dose: 2 mg Ondansetron HCl (Zofran Inj) 4 mg IVP Q4H PRN PRN Reason: Nausea/Vomiting Last Admin: 01/09/18 19:35 Dose: 4 mg Ondansetron HCl (Zofran Tab) 4 mg PO Q8H PRN PRN Reason: Nausea/Vomiting Results - Vital Signs Recent Vital Signs: Last Vital Signs Temp 98.4 F 01/09/18 08:23 Pulse 68 01/09/18 18:00 Resp 18 01/09/18 08:23 BP 123/92 H 01/09/18 08:23 Pulse Ox 100 01/09/18 08:23 - Labs Result Diagrams: 01/12/18 05:45 01/12/18 05:45 Labs: Laboratory Results - last 24 hr 01/09/18 01/09/18 16:17 16:17 WBC 3.8 L D RBC 3.82 Hgb 12.5 Hct 36.6 MCV 95.8 MCH 32.7 MCHC 34.2 RDW 14.3 Plt Count 195 MPV 9.4 Gran % 47.0 L Lymph % (Auto) 40.3 H Zavala % (Auto) 8.8 H Eos % (Auto) 3.4 Baso % (Auto) 0.5 Gran # 1.77 Lymph # (Auto) 1.5 Zavala # (Auto) 0.3 Eos # (Auto) 0.1 Baso # (Auto) 0.02 Sodium 138 Potassium 3.1 L Chloride 105 Carbon Dioxide 22 Anion Gap 14 BUN 4 L Creatinine 0.6 L Est GFR ( Amer) > 60 Est GFR (Non-Af Amer) > 60 Random Glucose 124 H Calcium 8.9 Magnesium 1.8 Total Bilirubin 0.5 AST 27 ALT 26 Alkaline Phosphatase 36 L Total Protein 6.5 Albumin 3.7 Globulin 2.7 Albumin/Globulin Ratio 1.4 Attending/Attestation - Attestation I have personally seen and examined this patient.: Yes I have fully participated in the care of the patient.: Yes I have reviewed all pertinent clinical information: Yes Notes (Text): This is an addendum to GI progress report dictated by Barbara Marques APN.The patient was seen and examined earlier. Medical records, lab studies, imagings were reviewed. Last 24 hours events reviewed. Agreed with the above treatment plan as outlined in Barbara Marques APN's notes the with the addition of the following On exam abdomen was soft with some tenderness in upper abdomen and left quadrant ,no rebound or guarding. patient did have some nausea and multiple vomiting, reported noticing blood, differentials to consider his Mary Ellen-Alberts tear, no further episodes.Patient started on clear liquid diet.patient's CT scan abdomen and pelvis reviewed patient noted to have colitis. Patient did report noticing blood, differentials considered infectious, inflammatory or ischemic. Patient may benefit from GI workup wasn't optimal. Continue IV antibiotics, monitor CBC and for overt GI bleed. Continue PPI. thank you for allowing us to participate in your patient's care further recommendations based upon clinical course. Follow-up abdominal ultrasound.
[2018-01-09 16:21] LABS: BASO # 0.02 K/mm3 (0.0-2.0); BASO % 0.5 % (0.0-3.0); EOS # 0.1 (0.0-0.7); EOS % 3.4 % (1.5-5.0); GRAN # 1.77 (1.4-6.5); HEMOGLOBIN 12.5 g/dL (12.0-16.0); LYMPH # 1.5 (1.2-3.4); LYMPH % 40.3 % (22.0-35.0); MEAN CELL VOLUME 95.8 fl (80.0-105.0); MEAN CORPUSCULAR HEMOGLOBIN 32.7 pg (25.0-35.0); MEAN CORPUSCULAR HGB CONC 34.2 g/dl (31.0-37.0); MEAN PLATELET VOLUME 9.4 fl (7.0-11.0); MONO # 0.3 (0.1-0.6); MONO % 8.8 % (1.0-6.0); RBC 3.82 10^6/uL (3.5-6.1); RED CELL DISTRIBUTION WIDTH 14.3 % (11.5-14.5); WHITE BLOOD COUNT 3.8 10^3/ul (4.5-11.0)
[2018-01-09 16:39] LABS: ALB/GLOB RATIO 1.4 (1.1-1.8); ALBUMIN 3.7 g/dL (3.0-4.8); ALT/SGPT 26 U/L (7-56); AST/SGOT 27 U/L (14-36); BLOOD UREA NITROGEN 4 mg/dL (7-21); CALCIUM 8.9 mg/dL (8.4-10.5); GFR AFRICAN-AMERICAN > 60; GFR NON-AFRICAN AMERICAN > 60; MAGNESIUM 1.8 mg/dL (1.7-2.2)
[2018-01-09 22:05] LABS: URINE BILIRUBIN NEGATIVE (NEGATIVE); URINE BLOOD LARGE (NEGATIVE); URINE GLUCOSE (UA) NEGATIVE (NEGATIVE); URINE LEUKOCYTE ESTERASE SMALL Leu/uL (NEGATIVE); URINE NITRATE NEGATIVE (NEGATIVE); URINE PROTEIN NEGATIVE mg/dL (<30 mg/dL); URINE UROBILINOGEN 0.2 E.U./dL (<1 E.U./dL)
[2018-01-09 22:26] LABS: URINE APPEARANCE SLIGHT-CLOUDY (CLEAR); URINE COLOR YELLOW (YELLOW)
[2018-01-09 22:39] LABS: URINE BACTERIA FEW (NEG)
[2018-01-10] MEDS: Morphine 2 mg/ml ISec IVP PRN ×3 (04:54→18:14)
[2018-01-10] MEDS: metroNIDAZOLE IV 500 mg/100 ml 500 MG/100 ML BAG IVPB SCH ×3 (04:55→21:59)
--- NOTE | 2018-01-10 07:12 | CP.PCM.PN ---
<Neyda Tejeda - Last Filed: 01/10/18 15:40> Subjective - Date & Time of Evaluation Date of Evaluation: 01/10/18 Time of Evaluation: 07:12 - Subjective Subjective: Progress note for Dr. Rodas Patient seen and examined at bedside. Patient states she still has bloody diarrhea yesterday night, felt a little nauseaus after eating a liquid diet last night. Patient had bloody diarrhea. Dr. Castaneda saw the patient and gave the order to analyze the stool. Objective - Vital Signs/Intake and Output Vital Signs (last 24 hours): Temp Pulse Resp BP Pulse Ox 98.4 F 74 18 123/92 H 100 01/09/18 08:23 01/10/18 02:00 01/09/18 08:23 01/09/18 08:23 01/09/18 08:23 Intake and Output: 01/10/18 01/10/18 06:59 18:59 Intake Total 420 Balance 420 - Medications Medications: Current Medications Acetaminophen (Tylenol 325mg Tab) 650 mg PO Q4H PRN PRN Reason: Fever >100.5 F Famotidine (Pepcid) 20 mg IVP DAILY [facility] Last Admin: 01/09/18 09:08 Dose: 20 mg Sodium Chloride (Sodium Chloride 0.9%) 1,000 mls @ 100 mls/hr IV .Q10H [facility] Last Admin: 01/09/18 12:46 Dose: 100 mls/hr Metronidazole (Flagyl) 500 mg in 100 mls @ 100 mls/hr IVPB Q8H [facility] PRN Reason: Protocol Last Admin: 01/10/18 04:55 Dose: 100 mls/hr Ceftriaxone Sodium 500 mg/ (Sodium Chloride) 100 mls @ 100 mls/hr IVPB Q12 [facility] PRN Reason: Protocol Stop: 01/13/18 22:59 Last Admin: 01/09/18 21:29 Dose: 100 mls/hr Morphine Sulfate (Morphine) 1 mg IVP Q6H PRN PRN Reason: Pain, moderate (4-7) Last Admin: 01/09/18 04:36 Dose: 1 mg Morphine Sulfate (Morphine) 2 mg IVP Q6H PRN PRN Reason: Pain, severe (8-10) Last Admin: 01/10/18 04:54 Dose: 2 mg Ondansetron HCl (Zofran Inj) 4 mg IVP Q4H PRN PRN Reason: Nausea/Vomiting Last Admin: 01/09/18 19:35 Dose: 4 mg Ondansetron HCl (Zofran Tab) 4 mg PO Q8H PRN PRN Reason: Nausea/Vomiting - Labs Labs: 01/09/18 16:17 01/09/18 16:17 PT 12.4 SECONDS (9.4-12.5) 01/08/18 10:30 INR 1.08 (0.93-1.08) 01/08/18 10:30 APTT 25.3 Seconds (25.1-36.5) 01/08/18 10:30 - Constitutional Appears: Non-toxic, No Acute Distress - Head Exam Head Exam: ATRAUMATIC, NORMAL INSPECTION, NORMOCEPHALIC - Eye Exam Eye Exam: EOMI, Normal appearance Pupil Exam: NORMAL ACCOMODATION, PERRL - ENT Exam ENT Exam: Mucous Membranes Moist, Normal Exam - Neck Exam Neck Exam: Full ROM, Normal Inspection - Respiratory Exam Respiratory Exam: Clear to Ausculation Bilateral, NORMAL BREATHING PATTERN. absent: Accessory Muscle Use - Cardiovascular Exam Cardiovascular Exam: REGULAR RHYTHM, +S1, +S2 - GI/Abdominal Exam GI & Abdominal Exam: Soft, Tenderness (left upper and lower quadrant. no rebound. no rigidity. no guarding). absent: Distended, Firm - Extremities Exam Extremities Exam: Full ROM, Normal Inspection. absent: Pedal Edema - Back Exam Back Exam: Full ROM, NORMAL INSPECTION - Neurological Exam Neurological Exam: Alert, Awake, CN II-XII Intact, Oriented x3 - Psychiatric Exam Psychiatric exam: Normal Affect, Normal Mood - Skin Skin Exam: Dry, Intact, Normal Color, Warm Assessment and Plan - Assessment and Plan (Free Text) Assessment: 37F with no pmh, presents with abdominal pain, hematemasis and bloody diarrhea, found to have ascending and descending wall thickening indicative of colitis, and sigmoid diverticulosis on CT scan abdomen/pelvis Colitis Abdominal pain, nausea, vomiting, diarrhea CT abdomen/pelvis ascending and descending mural wall thickening consistent with Colitis, sigmoid diverticulosis Per Dr. Castaneda GI consult: Request abdominal ultrasound, will consider EGD if continues to have N/V, colonoscopy in 6 weeks when colitis resolves NS @ 100cc/hr ED: Cipro, flagyl Patient is on Rocephin, flagyl US abdomen: normal, no acute findings, no gall bladder wall thickening, no gallstones, 3.4mm CBD, no splenomegaly, unremarkable IVC, no hydronephrosis Diet: advanced to full liquid diet, will advance to regular diet in the morning per GI Nausea: Zofran IVP Pain: Morphine 2mg IVP Q6H PRN Pain Prophylaxis Protonix SCDs discussed with Dr. Rodas <Mandi Rodas - Last Filed: 01/10/18 15:57> Objective - Vital Signs/Intake and Output Vital Signs (last 24 hours): Temp Pulse Resp BP Pulse Ox 97.5 F L 80 20 115/64 98 01/10/18 06:00 01/10/18 06:00 01/10/18 06:00 01/10/18 06:00 01/10/18 06:00 Intake and Output: 01/10/18 01/10/18 06:59 18:59 Intake Total 420 Balance 420 - Medications Medications: Current Medications Acetaminophen (Tylenol 325mg Tab) 650 mg PO Q4H PRN PRN Reason: Fever >100.5 F Last Admin: 01/10/18 11:08 Dose: 650 mg Famotidine (Pepcid) 20 mg IVP DAILY [facility] Last Admin: 01/10/18 09:17 Dose: 20 mg Sodium Chloride (Sodium Chloride 0.9%) 1,000 mls @ 100 mls/hr IV .Q10H [facility] Last Admin: 01/09/18 12:46 Dose: 100 mls/hr Metronidazole (Flagyl) 500 mg in 100 mls @ 100 mls/hr IVPB Q8H [facility] PRN Reason: Protocol Last Admin: 01/10/18 14:35 Dose: 100 mls/hr Ceftriaxone Sodium 500 mg/ (Sodium Chloride) 100 mls @ 100 mls/hr IVPB Q12 [facility] PRN Reason: Protocol Stop: 01/13/18 22:59 Last Admin: 01/10/18 09:16 Dose: 100 mls/hr Morphine Sulfate (Morphine) 1 mg IVP Q6H PRN PRN Reason: Pain, moderate (4-7) Last Admin: 01/09/18 04:36 Dose: 1 mg Morphine Sulfate (Morphine) 2 mg IVP Q6H PRN PRN Reason: Pain, severe (8-10) Last Admin: 01/10/18 11:07 Dose: 2 mg Ondansetron HCl (Zofran Inj) 4 mg IVP Q4H PRN PRN Reason: Nausea/Vomiting Last Admin: 01/10/18 11:08 Dose: 4 mg Ondansetron HCl (Zofran Tab) 4 mg PO Q8H PRN PRN Reason: Nausea/Vomiting - Labs Labs: 01/10/18 06:30 01/10/18 06:30 PT 12.4 SECONDS (9.4-12.5) 01/08/18 10:30 INR 1.08 (0.93-1.08) 01/08/18 10:30 APTT 25.3 Seconds (25.1-36.5) 01/08/18 10:30 Attending/Attestation - Attestation I have personally seen and examined this patient.: Yes I have fully participated in the care of the patient.: Yes I have reviewed all pertinent clinical information, including history, physical exam and plan: Yes Notes (Text): 01/10/18 15:55 37 year old female who presented with complaint of left sided abdominal pain, nausea, vomiting and diarrhea secondary to mild ascending/descending colitis and sigmoid diverticulosis as seen on CT abd/pelvis. US abdomen was negative. Symptoms are slowly improving with antibiotics and analgesics. She is on liquid diet; continue to advance as tolerated. Dysuria has resolved. GI is following. Possible d/c planning in 24-48 hrs if symptoms continue to improve. Mandi Rodas MD Hospitalist.
[2018-01-10 07:19] LABS: BASO # 0.02 K/mm3 (0.0-2.0); BASO % 0.6 % (0.0-3.0); EOS # 0.2 (0.0-0.7); EOS % 4.5 % (1.5-5.0); GRAN # 1.43 (1.4-6.5); GRAN % 40.3 % (50.0-68.0); HEMOGLOBIN 12.1 g/dL (12.0-16.0); LYMPH # 1.6 (1.2-3.4); LYMPH % 44.1 % (22.0-35.0); MEAN CELL VOLUME 96.5 fl (80.0-105.0); MEAN CORPUSCULAR HEMOGLOBIN 32.4 pg (25.0-35.0); MEAN CORPUSCULAR HGB CONC 33.6 g/dl (31.0-37.0); MEAN PLATELET VOLUME 9.7 fl (7.0-11.0); MONO # 0.4 (0.1-0.6); MONO % 10.5 % (1.0-6.0); RBC 3.73 10^6/uL (3.5-6.1); RED CELL DISTRIBUTION WIDTH 13.9 % (11.5-14.5); WHITE BLOOD COUNT 3.5 10^3/ul (4.5-11.0)
[2018-01-10 07:31] LABS: ALB/GLOB RATIO 1.2 (1.1-1.8); ALBUMIN 3.2 g/dL (3.0-4.8); ALT/SGPT 23 U/L (7-56); AST/SGOT 24 U/L (14-36); BLOOD UREA NITROGEN 3 mg/dL (7-21); CALCIUM 8.4 mg/dL (8.4-10.5); GFR AFRICAN-AMERICAN > 60; GFR NON-AFRICAN AMERICAN > 60; MAGNESIUM 1.7 mg/dL (1.7-2.2)
[2018-01-10 16:05] VITALS: O2SAT 100
[2018-01-11] MEDS: Morphine 2 mg/ml ISec IVP PRN ×3 (00:06→13:33)
--- NOTE | 2018-01-11 02:36 | PN ---
DATE:01/10/2018 SUBJECTIVE: This patient was seen and evaluated earlier today. Discussed with the nursing staff. The patient still complains of episodes of loose bowel movements and also small amount of blood per rectum. She is also slightly confused because she was also having periods at that time. It is difficult for her to ascertain at the present time if the bleeding is from the periods or also mixed with the stool. No further episodes of vomiting blood. On a clear liquid diet, tolerating. PHYSICAL EXAMINATION VITAL SIGNS: Temperature 97.8, pulse 73, blood pressure 126/81, respirations 20, O2 saturation 100%. HEENT: Atraumatic, anicteric. NECK: Supple. HEART: S1 and S2 heard. LUNGS: Bilateral air entry present. ABDOMEN: Soft. There is a mild tenderness present in the left lower quadrant area. There is no rebound or guarding. EXTREMITIES: No cyanosis. No clubbing. NEUROLOGIC: Alert and oriented. Moves all extremities. LABORATORY DATA: Showed WBC count 3.5, hemoglobin 12.1, hematocrit 36, Platelet count 213. Chemistry is essentially unremarkable, except potassium 3.4, magnesium 1.7. Rest of the labs otherwise unremarkable. Stool for C. diff is negative. Urine culture is still pending. There is a large amount of blood in the urine, maybe due to her period. IMPRESSION: This 37-year-old patient is admitted with abdominal pain, diarrhea, and episodes of vomiting. Speck of blood in the vomitus. There is also blood per rectum. Clinically suggestive of colitis. The hemoglobin has remained stable and the small amount of vomiting could be due to Mary Ellen-Alberts. RECOMMENDATIONS: 1. Would recommend at this point., stool for culture, which has not been sent yet. 2. The patient is presently on antibiotics Flagyl and ceftriaxone, which we will continue that. 3. Advance the diet to low-residue diet. 4. The patient is on Pepcid. We will increase the Pepcid to 20 mg twice daily and the patient going to benefit from the elective upper gastrointestinal endoscopic evaluation. If the diarrhea subsides and she is clinically improving, advance the diet, and the patient can be worked up as an outpatient. If the patient diarrhea wordens with significant amount of blood, we will consider flexible sigmoidoscopy. The patient is being followed by primary physician, Dr. Suresh in [place]. I had a detailed discussion with the patient regarding followup recommendations 5. The patient's potassium was low, being supplemented. Thank you very much for allowing us to participate in the care of the patient. Mckayla Castaneda MD [facility]
[2018-01-11] MEDS: metroNIDAZOLE IV 500 mg/100 ml 500 MG/100 ML BAG IVPB SCH ×2 (05:19→16:02)
--- NOTE | 2018-01-11 07:02 | CP.PCM.PN ---
<Neyda Tejeda - Last Filed: 01/11/18 10:19> Subjective - Date & Time of Evaluation Date of Evaluation: 01/11/18 Time of Evaluation: 06:58 - Subjective Subjective: Progress note for Dr. Rodas Patient seen and examined at bedside. Patient had bloody diarrhea x3 yesterday. Stool sent for stool culture. Patient tolerating pain, tolerating diet. Objective - Vital Signs/Intake and Output Vital Signs (last 24 hours): Temp Pulse Resp BP Pulse Ox 97.8 F 71 20 126/81 100 01/10/18 16:04 01/11/18 02:00 01/10/18 16:04 01/10/18 16:04 01/10/18 16:04 Intake and Output: 01/10/18 01/11/18 18:59 06:59 Intake Total 420 Output Total 0 Balance 420 - Medications Medications: Current Medications Acetaminophen (Tylenol 325mg Tab) 650 mg PO Q4H PRN PRN Reason: Fever >100.5 F Last Admin: 01/10/18 21:58 Dose: 650 mg Famotidine (Pepcid) 20 mg IVP DAILY [facility] Last Admin: 01/10/18 09:17 Dose: 20 mg Sodium Chloride (Sodium Chloride 0.9%) 1,000 mls @ 100 mls/hr IV .Q10H [facility] Last Admin: 01/09/18 12:46 Dose: 100 mls/hr Metronidazole (Flagyl) 500 mg in 100 mls @ 100 mls/hr IVPB Q8H [facility] PRN Reason: Protocol Last Admin: 01/11/18 05:19 Dose: 100 mls/hr Ceftriaxone Sodium 500 mg/ (Sodium Chloride) 100 mls @ 100 mls/hr IVPB Q12 [facility] PRN Reason: Protocol Stop: 01/13/18 22:59 Last Admin: 01/10/18 22:00 Dose: 100 mls/hr Morphine Sulfate (Morphine) 1 mg IVP Q6H PRN PRN Reason: Pain, moderate (4-7) Last Admin: 01/09/18 04:36 Dose: 1 mg Morphine Sulfate (Morphine) 2 mg IVP Q6H PRN PRN Reason: Pain, severe (8-10) Last Admin: 01/11/18 00:06 Dose: 2 mg Ondansetron HCl (Zofran Inj) 4 mg IVP Q4H PRN PRN Reason: Nausea/Vomiting Last Admin: 01/10/18 18:36 Dose: 4 mg Ondansetron HCl (Zofran Tab) 4 mg PO Q8H PRN PRN Reason: Nausea/Vomiting - Labs Labs: 01/10/18 06:30 01/10/18 06:30 PT 12.4 SECONDS (9.4-12.5) 01/08/18 10:30 INR 1.08 (0.93-1.08) 01/08/18 10:30 APTT 25.3 Seconds (25.1-36.5) 01/08/18 10:30 - Constitutional Appears: Non-toxic, No Acute Distress - Head Exam Head Exam: NORMAL INSPECTION - Eye Exam Eye Exam: EOMI, Normal appearance - ENT Exam ENT Exam: Mucous Membranes Moist - Neck Exam Neck Exam: Full ROM - Respiratory Exam Respiratory Exam: Clear to Ausculation Bilateral, NORMAL BREATHING PATTERN. absent: Accessory Muscle Use - Cardiovascular Exam Cardiovascular Exam: REGULAR RHYTHM, +S1, +S2. absent: Bradycardia, Tachycardia - GI/Abdominal Exam GI & Abdominal Exam: Soft, Normal Bowel Sounds. absent: Tenderness - Extremities Exam Extremities Exam: Full ROM, Normal Inspection. absent: Pedal Edema - Back Exam Back Exam: Full ROM, NORMAL INSPECTION - Neurological Exam Neurological Exam: Alert, Awake, CN II-XII Intact, Normal Gait, Oriented x3 - Psychiatric Exam Psychiatric exam: Normal Affect, Normal Mood - Skin Skin Exam: Dry, Intact, Normal Color, Warm Assessment and Plan - Assessment and Plan (Free Text) Assessment: 37F with no pmh, presents with abdominal pain, hematemasis and bloody diarrhea, found to have ascending and descending wall thickening indicative of colitis, and sigmoid diverticulosis on CT scan abdomen/pelvis Colitis Abdominal pain, nausea, vomiting, diarrhea CT abdomen/pelvis ascending and descending mural wall thickening consistent with Colitis, sigmoid diverticulosis Per GI consult: Dr. Castaneda, request abdominal ultrasound, will consider EGD if continues to have N/V, colonoscopy in 6 weeks when colitis resolves NS @ 100cc/hr ED: Cipro, flagyl Patient is on Rocephin, flagyl 3/4 rocephin discontinued due to downtrending leukopenia. placed on cipro 500mg BID US abdomen: normal, no acute findings, no gall bladder wall thickening, no gallstones, 3.4mm CBD, no splenomegaly, unremarkable IVC, no hydronephrosis downtrending leukopenia. rocephin discontinued f/u AM CBC bloody diarrhea follow up c diff toxin follow up stool culture Diet: advanced to full liquid diet, will advance to regular diet in the morning per GI Nausea: Zofran IVP Pain: Morphine 2mg IVP Q6H PRN Pain Prophylaxis Protonix SCDs discussed with Dr. Clark Tejeda, DO PGY1 <Mandi Rodas - Last Filed: 01/11/18 12:27> Objective - Vital Signs/Intake and Output Vital Signs (last 24 hours): Temp Pulse Resp BP Pulse Ox 97.7 F 66 18 122/89 100 01/11/18 07:32 01/11/18 07:25 01/11/18 07:25 01/11/18 07:25 01/11/18 07:25 Intake and Output: 01/11/18 01/11/18 06:59 18:59 Intake Total 420 Output Total 0 Balance 420 - Medications Medications: Current Medications Acetaminophen (Tylenol 325mg Tab) 650 mg PO Q4H PRN PRN Reason: Fever >100.5 F Last Admin: 01/11/18 07:32 Dose: 650 mg Famotidine (Pepcid) 20 mg IVP DAILY [facility] Last Admin: 01/11/18 09:13 Dose: 20 mg Sodium Chloride (Sodium Chloride 0.9%) 1,000 mls @ 100 mls/hr IV .Q10H [facility] Last Admin: 01/09/18 12:46 Dose: 100 mls/hr Metronidazole (Flagyl) 500 mg in 100 mls @ 100 mls/hr IVPB Q8H [facility] PRN Reason: Protocol Last Admin: 01/11/18 05:19 Dose: 100 mls/hr Morphine Sulfate (Morphine) 1 mg IVP Q6H PRN PRN Reason: Pain, moderate (4-7) Last Admin: 01/09/18 04:36 Dose: 1 mg Morphine Sulfate (Morphine) 2 mg IVP Q6H PRN PRN Reason: Pain, severe (8-10) Last Admin: 01/11/18 07:31 Dose: 2 mg Nitrofurantoin Macrocrystals (Macrobid) 100 mg PO Q12 [facility] Last Admin: 01/11/18 12:09 Dose: 100 mg Ondansetron HCl (Zofran Inj) 4 mg IVP Q4H PRN PRN Reason: Nausea/Vomiting Last Admin: 01/11/18 07:31 Dose: 4 mg Ondansetron HCl (Zofran Tab) 4 mg PO Q8H PRN PRN Reason: Nausea/Vomiting Potassium Chloride (Potassium Chloride Oral Soln) 40 meq PO ONCE ONE Stop: 01/11/18 12:25 - Labs Labs: 01/11/18 09:00 01/11/18 09:00 PT 12.4 SECONDS (9.4-12.5) 01/08/18 10:30 INR 1.08 (0.93-1.08) 01/08/18 10:30 APTT 25.3 Seconds (25.1-36.5) 01/08/18 10:30 Attending/Attestation - Attestation I have personally seen and examined this patient.: Yes I have fully participated in the care of the patient.: Yes I have reviewed all pertinent clinical information, including history, physical exam and plan: Yes Notes (Text): 01/11/18 12:25 37 year old female who presented with complaint of left sided abdominal pain, nausea, vomiting and diarrhea secondary to mild ascending/descending colitis and sigmoid diverticulosis as seen on CT abd/pelvis. US abdomen was negative. Her abdominal pain has improved but she is still complaining of bloody diarrhea. H/H is stable. Will follow up with GI recommendations. Leukopenia is noted and ceftriaxone has been switched to different antibiotic. Will repeat in AM. Mandi Rodas MD Hospitalist.
[2018-01-11 09:33] LABS: BASO # 0.03 K/mm3 (0.0-2.0); BASO % 1.1 % (0.0-3.0); EOS # 0.1 (0.0-0.7); EOS % 5.1 % (1.5-5.0); GRAN # 1.23 (1.4-6.5); GRAN % 44.9 % (50.0-68.0); LYMPH # 1.1 (1.2-3.4); LYMPH % 41.2 % (22.0-35.0); MEAN CELL VOLUME 97.3 fl (80.0-105.0); MEAN CORPUSCULAR HEMOGLOBIN 32.7 pg (25.0-35.0); MEAN CORPUSCULAR HGB CONC 33.6 g/dl (31.0-37.0); MEAN PLATELET VOLUME 9.7 fl (7.0-11.0); MONO # 0.2 (0.1-0.6); MONO % 7.7 % (1.0-6.0); RBC 3.67 10^6/uL (3.5-6.1); RED CELL DISTRIBUTION WIDTH 13.9 % (11.5-14.5)
[2018-01-11 09:45] LABS: WHITE BLOOD COUNT 2.7 10^3/ul (4.5-11.0)
[2018-01-11 09:53] LABS: ALB/GLOB RATIO 1.3 (1.1-1.8); ALBUMIN 3.5 g/dL (3.0-4.8); ALT/SGPT 24 U/L (7-56); AST/SGOT 24 U/L (14-36); BLOOD UREA NITROGEN 2 mg/dL (7-21); CALCIUM 9.3 mg/dL (8.4-10.5); GFR AFRICAN-AMERICAN > 60; GFR NON-AFRICAN AMERICAN > 60; MAGNESIUM 1.7 mg/dL (1.7-2.2)
[2018-01-11] MEDS ORDERED: Potassium Chloride 40 mEq/30 ml LIQ UD PO ONE (12:24)
[2018-01-11] MEDS: Oxycodone/Acetaminophen 2.5/325 mg Tab PO PRN ×2 (16:15→21:47)
--- NOTE | 2018-01-11 19:15 | PN ---
DATE: 01/11/2018 SUBJECTIVE: This patient was seen and evaluated earlier today. The patient has one episode of bowel movement. She described it as mushy, no more bleeding. The patient did have blood per rectum yesterday. Still complains some abdominal discomfort. Tolerating the diet. PHYSICAL EXAMINATION: VITAL SIGNS: Temperature 97.5 pulse 101, blood pressure is 114/77. HEENT: Atraumatic, anicteric. NECK: Supple. HEART: S1 and S2 heard. LUNGS: Bilateral air entry present. ABDOMEN: Soft. There is tenderness present in the left lower quadrant area. There is no rebound or guarding. EXTREMITIES: No edema, no cyanosis. NEUROLOGIC: Alert and oriented. Moves all extremities. LABORATORY DATA: Hemoglobin 12, hematocrit 35.7, WBC 2.7, platelets 202. Potassium 3.4. The patient's absolute neutrophil count is 1200. LFTs normal. Urinalysis shows rbc's of 2-5, wbc's of 5-10. IMPRESSION AND RECOMMENDATIONS: This 37-year-old patient is admitted with acute episode of abdominal pain, diarrhea. CT shows some thickening of the left colon suggestive for colitis. The patient did have few episodes of vomiting and streaks of blood, appears to be like a little, but hemoglobin is stable. No further episodes of bleeding. The patient was found to be leukopenic. WBC count has come down to 2.7. The patient was also on hydration, the IV fluids which has been now discontinued. The antibiotics have been changed to nitrofurantoin and Flagyl. The patient was on ceftriaxone. I have discussed with Dr. Rodas. The plan is to start her on p.o. Cipro and monitor her blood count again tomorrow. If the patient is doing well, the patient can be discharged to home with Cipro and Flagyl for 7 days with close followup with the primary physician. The patient would benefit from the elective colonoscopic evaluation. If there is any further worsening of the symptoms, will need to be having early gastrointestinal evaluation. The patient had a small episode of hematemesis that could be due to Mary Ellen-Alberts, but the patient was advised to avoid the NSAIDs and take PPI or Pepcid on a regular basis for another 6-8 weeks' time and elective endoscopic and colonoscopic evaluation. Thank you very much for allowing us to participate in the care of the patient. Mckayla Castaneda MD [facility] # [id number] [facility]
[2018-01-12] MEDS: Oxycodone/Acetaminophen 2.5/325 mg Tab PO PRN ×2 (05:21→11:42)
[2018-01-12 06:39] LABS: BASO # 0.04 K/mm3 (0.0-2.0); BASO % 1.2 % (0.0-3.0); EOS # 0.2 (0.0-0.7); EOS % 6.4 % (1.5-5.0); GRAN # 1.09 (1.4-6.5); GRAN % 31.9 % (50.0-68.0); HEMOGLOBIN 11.7 g/dL (12.0-16.0); LYMPH # 1.7 (1.2-3.4); MEAN CELL VOLUME 97.2 fl (80.0-105.0); MEAN CORPUSCULAR HEMOGLOBIN 32.5 pg (25.0-35.0); MEAN CORPUSCULAR HGB CONC 33.4 g/dl (31.0-37.0); MONO # 0.4 (0.1-0.6); MONO % 10.5 % (1.0-6.0); RBC 3.6 10^6/uL (3.5-6.1); RED CELL DISTRIBUTION WIDTH 13.6 % (11.5-14.5); WHITE BLOOD COUNT 3.4 10^3/ul (4.5-11.0)
[2018-01-12 07:02] LABS: ALB/GLOB RATIO 1.2 (1.1-1.8); ALBUMIN 3.2 g/dL (3.0-4.8); ALT/SGPT 22 U/L (7-56); AST/SGOT 23 U/L (14-36); BLOOD UREA NITROGEN 5 mg/dL (7-21); CALCIUM 9.1 mg/dL (8.4-10.5); GFR AFRICAN-AMERICAN > 60; GFR NON-AFRICAN AMERICAN > 60; MAGNESIUM 1.6 mg/dL (1.7-2.2)
[2018-01-12] MEDS ORDERED: Magnesium Sulfate 1 gm in D5W 1 GM/100 ML BAG IVPB ONE (07:15)
--- NOTE | 2018-01-12 07:15 | CP.PCM.PN ---
Subjective - Date & Time of Evaluation Date of Evaluation: 01/12/18 Time of Evaluation: 07:12 - Subjective Subjective: Progress note for Dr. Sanders Patient seen and examined at bedside. No acute events overnight. Patient tolerated diet. Patient is tolerating pain. Patient denies fever, chills, nausea, vomiting. Objective - Vital Signs/Intake and Output Vital Signs (last 24 hours): Temp Pulse Resp BP Pulse Ox 98.0 F 72 19 129/85 100 01/11/18 16:40 01/12/18 02:00 01/11/18 16:40 01/11/18 16:40 01/11/18 16:40 Intake and Output: 01/12/18 01/12/18 06:59 18:59 Intake Total 540 Balance 540 - Medications Medications: Current Medications Acetaminophen (Tylenol 325mg Tab) 650 mg PO Q4H PRN PRN Reason: Fever >100.5 F Last Admin: 01/11/18 20:10 Dose: 650 mg Ciprofloxacin (Cipro) 500 mg PO Q12 [facility] PRN Reason: Protocol Stop: 01/16/18 10:01 Last Admin: 01/11/18 21:47 Dose: 500 mg Famotidine (Pepcid) 20 mg PO 1000,2200 [facility] Last Admin: 01/11/18 21:47 Dose: 20 mg Metronidazole (Flagyl) 500 mg PO Q8 [facility] PRN Reason: Protocol Last Admin: 01/12/18 05:21 Dose: 500 mg Ondansetron HCl (Zofran Tab) 4 mg PO Q8H PRN PRN Reason: Nausea/Vomiting Oxycodone/Acetaminophen (Percocet 2.5/325 Mg Tab) 1 tab PO Q6H PRN PRN Reason: Pain, moderate (4-7) Last Admin: 01/12/18 05:21 Dose: 1 tab - Labs Labs: 01/12/18 05:45 01/12/18 05:45 PT 12.4 SECONDS (9.4-12.5) 01/08/18 10:30 INR 1.08 (0.93-1.08) 01/08/18 10:30 APTT 25.3 Seconds (25.1-36.5) 01/08/18 10:30 - Constitutional Appears: Non-toxic, No Acute Distress - Head Exam Head Exam: ATRAUMATIC, NORMAL INSPECTION, NORMOCEPHALIC - Eye Exam Eye Exam: EOMI, Normal appearance Pupil Exam: NORMAL ACCOMODATION, PERRL - ENT Exam ENT Exam: Mucous Membranes Moist - Neck Exam Neck Exam: Full ROM. absent: Thyromegaly - Respiratory Exam Respiratory Exam: Clear to Ausculation Bilateral, NORMAL BREATHING PATTERN. absent: Accessory Muscle Use - Cardiovascular Exam Cardiovascular Exam: REGULAR RHYTHM, +S1, +S2 - GI/Abdominal Exam GI & Abdominal Exam: Soft, Normal Bowel Sounds - Extremities Exam Extremities Exam: Full ROM, Normal Inspection. absent: Pedal Edema - Back Exam Back Exam: Full ROM, NORMAL INSPECTION - Neurological Exam Neurological Exam: Awake, CN II-XII Intact, Oriented x3 - Psychiatric Exam Psychiatric exam: Normal Mood - Skin Skin Exam: Dry, Intact, Normal Color, Warm Assessment and Plan - Assessment and Plan (Free Text) Assessment: 37F with no pmh, presents with abdominal pain, hematemasis and bloody diarrhea, found to have ascending and descending wall thickening indicative of colitis, and sigmoid diverticulosis on CT scan abdomen/pelvis Colitis Abdominal pain, nausea, vomiting, diarrhea CT abdomen/pelvis ascending and descending mural wall thickening consistent with Colitis, sigmoid diverticulosis Per GI consult: Dr. Castaneda, request abdominal ultrasound, will consider EGD if continues to have N/V, colonoscopy in 6 weeks when colitis resolves NS @ 100cc/hr ED: Cipro, flagyl Patient is on Rocephin, flagyl 3/4 rocephin discontinued due to downtrending leukopenia. placed on cipro 500mg BID US abdomen: normal, no acute findings, no gall bladder wall thickening, no gallstones, 3.4mm CBD, no splenomegaly, unremarkable IVC, no hydronephrosis Flagyl 500 mg PO Q8H UTI gram positive cocci cipro 500mg PO BID leukopenia, resolving rocephin discontinued f/u AM CBC bloody diarrhea follow up c diff toxin follow up stool culture Diet: advanced to full liquid diet, will advance to regular diet in the morning per GI Nausea: Zofran IVP, discontinued. IV infiltrated. staff unable to insert new IV Pain: Percocet Prophylaxis Protonix SCDs discussed with Dr. Clark Tejeda, DO PGY1
[2018-01-12 09:01] VITALS: BP 125/82; PULSE 65; RESP 18; TEMP 98.1
[2018-01-12] MEDS ORDERED: Magnesium Oxide 400 mg Tab UD PO SCH (10:00)
--- NOTE | 2018-01-12 12:51 | CP.PCM.DIS ---
<NikhilNeyda - Last Filed: 01/12/18 13:09> Provider - Provider Date of Admission: 01/09/18 10:09 Attending physician: Sofia Sanders MD Consults: DR. Castaneda Time Spent in preparation of Discharge (in minutes): 35 Hospital Course - Lab Results Lab Results: Micro Results 01/09/18 22:00 Urine Urine Culture - Final Gram Positive Franky 01/09/18 21:24 Stool C. difficile Antigen & Toxin A,B (M - Final Most Recent Lab Values WBC 3.4 10^3/ul (4.5-11.0) L D 01/12/18 05:45 RBC 3.60 10^6/uL (3.5-6.1) 01/12/18 05:45 Hgb 11.7 g/dL (12.0-16.0) L 01/12/18 05:45 Hct 35.0 % (36.0-48.0) L 01/12/18 05:45 MCV 97.2 fl (80.0-105.0) 01/12/18 05:45 MCH 32.5 pg (25.0-35.0) 01/12/18 05:45 MCHC 33.4 g/dl (31.0-37.0) 01/12/18 05:45 RDW 13.6 % (11.5-14.5) 01/12/18 05:45 Plt Count 204 10^3/uL (120.0-450.0) 01/12/18 05:45 MPV 10.0 fl (7.0-11.0) 01/12/18 05:45 Gran % 31.9 % (50.0-68.0) L 01/12/18 05:45 Lymph % (Auto) 50.0 % (22.0-35.0) H 01/12/18 05:45 [place] % (Auto) 10.5 % (1.0-6.0) H 01/12/18 05:45 Eos % (Auto) 6.4 % (1.5-5.0) H 01/12/18 05:45 Baso % (Auto) 1.2 % (0.0-3.0) 01/12/18 05:45 Gran # 1.09 (1.4-6.5) L 01/12/18 05:45 Lymph # (Auto) 1.7 (1.2-3.4) 01/12/18 05:45 [place] # (Auto) 0.4 (0.1-0.6) 01/12/18 05:45 Eos # (Auto) 0.2 (0.0-0.7) 01/12/18 05:45 Baso # (Auto) 0.04 K/mm3 (0.0-2.0) 01/12/18 05:45 PT 12.4 SECONDS (9.4-12.5) 01/08/18 10:30 INR 1.08 (0.93-1.08) 01/08/18 10:30 APTT 25.3 Seconds (25.1-36.5) 01/08/18 10:30 Sodium 141 mmol/L (132-148) 01/12/18 05:45 Potassium 3.9 mmol/L (3.6-5.0) 01/12/18 05:45 Chloride 108 mmol/L (98-107) H 01/12/18 05:45 Carbon Dioxide 25 mmol/L (21-33) 01/12/18 05:45 Anion Gap 12 (10-20) 01/12/18 05:45 BUN 5 mg/dL (7-21) L 01/12/18 05:45 Creatinine 0.5 mg/dl (0.7-1.2) L 01/12/18 05:45 Est GFR ( Amer) > 60 01/12/18 05:45 Est GFR (Non-Af Amer) > 60 01/12/18 05:45 Random Glucose 87 mg/dL (70-110) 01/12/18 05:45 Calcium 9.1 mg/dL (8.4-10.5) 01/12/18 05:45 Magnesium 1.6 mg/dL (1.7-2.2) L 01/12/18 05:45 Total Bilirubin 0.2 mg/dL (0.2-1.3) 01/12/18 05:45 AST 23 U/L (14-36) 01/12/18 05:45 ALT 22 U/L (7-56) 01/12/18 05:45 Alkaline Phosphatase 26 U/L (38-126) L 01/12/18 05:45 Total Protein 5.8 g/dL (5.8-8.3) 01/12/18 05:45 Albumin 3.2 g/dL (3.0-4.8) 01/12/18 05:45 Globulin 2.6 gm/dL 01/12/18 05:45 Albumin/Globulin Ratio 1.2 (1.1-1.8) 01/12/18 05:45 Triglycerides 162 mg/dL (35-160) H 01/08/18 10:30 Cholesterol 143 mg/dL (130-200) 01/08/18 10:30 LDL Cholesterol Direct 42 mg/dL (0-129) 01/08/18 10:30 HDL Cholesterol 86 mg/dL (29-60) H 01/08/18 10:30 Lipase 83 U/L (23-300) 01/08/18 10:30 Urine Color Yellow (YELLOW) 01/09/18 22:00 Urine Appearance Slight-cloudy (CLEAR) 01/09/18 22:00 Urine pH 6.0 (4.7-8.0) 01/09/18 22:00 Ur Specific [place] 1.020 (1.005-1.035) 01/09/18 22:00 Urine Protein Negative mg/dL (<30 mg/dL) 01/09/18 22:00 Urine Glucose (UA) Negative mg/dL (NEGATIVE) 01/09/18 22:00 Urine Ketones Negative mg/dL (NEGATIVE) 01/09/18 22:00 Urine Blood Large (NEGATIVE) H 01/09/18 22:00 Urine Nitrate Negative (NEGATIVE) 01/09/18 22:00 Urine Bilirubin Negative (NEGATIVE) 01/09/18 22:00 Urine Urobilinogen 0.2 E.U./dL (<1 E.U./dL) 01/09/18 22:00 Ur Leukocyte Esterase Small [place]/uL (NEGATIVE) H 01/09/18 22:00 Urine RBC 5 - 10 /hpf (0-2) 01/09/18 22:00 Urine WBC 2 - 5 /hpf (0-6) 01/09/18 22:00 Ur Epithelial Cells 10 - 12 /hpf (0-5) 01/09/18 22:00 Urine Bacteria Few (NEG) 01/09/18 22:00 Blood Type A POSITIVE 01/08/18 15:15 Blood Type Confirm A POSITIVE 01/08/18 17:00 Antibody Screen Negative 01/08/18 15:15 BBK History Checked No verified bt 01/08/18 15:15 - Hospital Course Hospital Course: GI Consult: Dr. Castaneda HPI: Patient is a 37 YO female with PMH of nephrolithiasis who presents to the [facility] ED with bilious bloody emesis x2 this morning. Patient describes the vomit as a mix of light red/pink blood and green liquid. Patient also had crampy left sided abdominal pain just under the rib cage associated with the episodes. Abdominal pain has been ongoing for a few days. Patient admits to bloody bowel movements which started 3 days ago. Patient saw dark brown colored blood in the stool. Stool was more loose than usual. Patient has never had anything like this before. Patient admits to subjective fever, chills, nausea prior to vomiting, migraine x3 days, bloody diarrhea, abdominal pain. Patient denies chest pain, SOB, pain with defecation, urinary symptoms. Patient was placed on fluid, rocephin and flagyl. Patient was tolerating diet advancement but had bloody diarrhea. Patient had decreasing leukopenia, so rocephin was stopped. Patient was placed on cipro. Patient's IV did not work. Patient placed on PO medication. Patient placed on cipro and flagyl. Patient continues to have diarrhea, reminded to remain hydrated and to follow up with GI when done with antibiotics for colonoscopy - Date & Time of H&P Date of H&P: 01/12/18 Time of H&P: 12:50 Discharge Exam - Head Exam Head Exam: ATRAUMATIC, NORMAL INSPECTION, NORMOCEPHALIC - Eye Exam Eye Exam: EOMI, Normal appearance Pupil Exam: NORMAL ACCOMODATION, PERRL - ENT Exam ENT Exam: Mucous Membranes Moist - Neck Exam Neck exam: Full Rom - Respiratory Exam Respiratory Exam: NORMAL BREATHING PATTERN. absent: Accessory Muscle Use - Cardiovascular Exam Cardiovascular Exam: REGULAR RHYTHM, +S1, +S2 - GI/Abdominal Exam GI & Abdominal Exam: Normal Bowel Sounds, Soft, Tenderness (left upper and lower quadrant mild tenderness. no rigidity. no rebound tenderness) - Extremities Exam Extremities exam: full ROM Additional comments: no pedal edema - Neurological Exam Neurological exam: Alert, CN II-XII Intact, Normal Gait, Oriented x3 - Psychiatric Exam Psychiatric exam: Normal Affect, Normal Mood - Skin Skin Exam: Dry, Intact, Normal Color, Warm Discharge Plan - Discharge Medications Prescriptions: Ciprofloxacin HCl [Cipro] 500 mg PO BID #16 tab Magnesium Oxide [Mag-Ox] 400 mg PO BID #6 tab Metronidazole [Flagyl] 500 mg PO TID #24 tab Ondansetron HCl [Zofran] 8 mg PO Q6H #32 tab oxyCODONE/Acetaminophen [Percocet 5/325 mg Tab] 1 tab PO Q6 PRN 3 Days #12 tab PRN Reason: Pain, Severe (8-10) Pantoprazole Sodium [Protonix] 40 mg PO DAILY #14 ect - Follow Up Plan Condition: FAIR Disposition: HOME/ ROUTINE Instructions: Diverticulosis (DC), Gastrointestinal Bleeding (DC), Microscopic Colitis Additional Instructions: follow up with GI once completing course of antibiotics for colonoscopy (in 6-8 weeks) Continue antibiotics as directed follow up with primary care doctor for prescription to write prescription for PPI x 6-8 weeks <Sofia Sanders - Last Filed: 01/12/18 14:01> Provider - Provider Date of Admission: 01/09/18 10:09 Attending physician: Sofia Sanders MD Hospital Course - Lab Results Lab Results: Micro Results 01/09/18 22:00 Urine Urine Culture - Final Gram Positive Franky 01/09/18 21:24 Stool C. difficile Antigen & Toxin A,B (M - Final Most Recent Lab Values WBC 3.4 10^3/ul (4.5-11.0) L D 01/12/18 05:45 RBC 3.60 10^6/uL (3.5-6.1) 01/12/18 05:45 Hgb 11.7 g/dL (12.0-16.0) L 01/12/18 05:45 Hct 35.0 % (36.0-48.0) L 01/12/18 05:45 MCV 97.2 fl (80.0-105.0) 01/12/18 05:45 MCH 32.5 pg (25.0-35.0) 01/12/18 05:45 MCHC 33.4 g/dl (31.0-37.0) 01/12/18 05:45 RDW 13.6 % (11.5-14.5) 01/12/18 05:45 Plt Count 204 10^3/uL (120.0-450.0) 01/12/18 05:45 MPV 10.0 fl (7.0-11.0) 01/12/18 05:45 Gran % 31.9 % (50.0-68.0) L 01/12/18 05:45 Lymph % (Auto) 50.0 % (22.0-35.0) H 01/12/18 05:45 [place] % (Auto) 10.5 % (1.0-6.0) H 01/12/18 05:45 Eos % (Auto) 6.4 % (1.5-5.0) H 01/12/18 05:45 Baso % (Auto) 1.2 % (0.0-3.0) 01/12/18 05:45 Gran # 1.09 (1.4-6.5) L 01/12/18 05:45 Lymph # (Auto) 1.7 (1.2-3.4) 01/12/18 05:45 [place] # (Auto) 0.4 (0.1-0.6) 01/12/18 05:45 Eos # (Auto) 0.2 (0.0-0.7) 01/12/18 05:45 Baso # (Auto) 0.04 K/mm3 (0.0-2.0) 01/12/18 05:45 PT 12.4 SECONDS (9.4-12.5) 01/08/18 10:30 INR 1.08 (0.93-1.08) 01/08/18 10:30 APTT 25.3 Seconds (25.1-36.5) 01/08/18 10:30 Sodium 141 mmol/L (132-148) 01/12/18 05:45 Potassium 3.9 mmol/L (3.6-5.0) 01/12/18 05:45 Chloride 108 mmol/L (98-107) H 01/12/18 05:45 Carbon Dioxide 25 mmol/L (21-33) 01/12/18 05:45 Anion Gap 12 (10-20) 01/12/18 05:45 BUN 5 mg/dL (7-21) L 01/12/18 05:45 Creatinine 0.5 mg/dl (0.7-1.2) L 01/12/18 05:45 Est GFR ( Amer) > 60 01/12/18 05:45 Est GFR (Non-Af Amer) > 60 01/12/18 05:45 Random Glucose 87 mg/dL (70-110) 01/12/18 05:45 Calcium 9.1 mg/dL (8.4-10.5) 01/12/18 05:45 Magnesium 1.6 mg/dL (1.7-2.2) L 01/12/18 05:45 Total Bilirubin 0.2 mg/dL (0.2-1.3) 01/12/18 05:45 AST 23 U/L (14-36) 01/12/18 05:45 ALT 22 U/L (7-56) 01/12/18 05:45 Alkaline Phosphatase 26 U/L (38-126) L 01/12/18 05:45 Total Protein 5.8 g/dL (5.8-8.3) 01/12/18 05:45 Albumin 3.2 g/dL (3.0-4.8) 01/12/18 05:45 Globulin 2.6 gm/dL 01/12/18 05:45 Albumin/Globulin Ratio 1.2 (1.1-1.8) 01/12/18 05:45 Triglycerides 162 mg/dL (35-160) H 01/08/18 10:30 Cholesterol 143 mg/dL (130-200) 01/08/18 10:30 LDL Cholesterol Direct 42 mg/dL (0-129) 01/08/18 10:30 HDL Cholesterol 86 mg/dL (29-60) H 01/08/18 10:30 Lipase 83 U/L (23-300) 01/08/18 10:30 Urine Color Yellow (YELLOW) 01/09/18 22:00 Urine Appearance Slight-cloudy (CLEAR) 01/09/18 22:00 Urine pH 6.0 (4.7-8.0) 01/09/18 22:00 Ur Specific [place] 1.020 (1.005-1.035) 01/09/18 22:00 Urine Protein Negative mg/dL (<30 mg/dL) 01/09/18 22:00 Urine Glucose (UA) Negative mg/dL (NEGATIVE) 01/09/18 22:00 Urine Ketones Negative mg/dL (NEGATIVE) 01/09/18 22:00 Urine Blood Large (NEGATIVE) H 01/09/18 22:00 Urine Nitrate Negative (NEGATIVE) 01/09/18 22:00 Urine Bilirubin Negative (NEGATIVE) 01/09/18 22:00 Urine Urobilinogen 0.2 E.U./dL (<1 E.U./dL) 01/09/18 22:00 Ur Leukocyte Esterase Small Dangelo/uL (NEGATIVE) H 01/09/18 22:00 Urine RBC 5 - 10 /hpf (0-2) 01/09/18 22:00 Urine WBC 2 - 5 /hpf (0-6) 01/09/18 22:00 Ur Epithelial Cells 10 - 12 /hpf (0-5) 01/09/18 22:00 Urine Bacteria Few (NEG) 01/09/18 22:00 Blood Type A POSITIVE 01/08/18 15:15 Blood Type Confirm A POSITIVE 01/08/18 17:00 Antibody Screen Negative 01/08/18 15:15 BBK History Checked No verified bt 01/08/18 15:15 Attending/Attestation - Attestation I have personally seen and examined this patient.: Yes I have fully participated in the care of the patient.: Yes I have reviewed all pertinent clinical information, including history, physical exam and plan: Yes Notes (Text): 01/12/18 13:58 Medical record note made by the resident after discussion with my direction and input after the patient was personally seen and examined by me. I have reviewed the chart and agree that the record accurately reflects by personal performance of the history, physical exam, data review, and medical decision-making, in the course for the patient. I have also personally directed the plan of care. Patient is feeling better.Abdominal pain has improved significantly.She is tolerating soft diet with out any issue.She is afebrile.Hemoglobin is stable. She will be discharged home on oral Ciprofloxacin and Flagyl. She will follow up with PCP and GI as out patient.She will need Colonoscopy as out patient. Management plan was discussed in detail with patient Education was provided.
--- NOTE | 2018-01-12 12:53 | CP.PCM.PN ---
<Carlos Serna - Last Filed: 01/12/18 12:45> Subjective - Date & Time of Evaluation Date of Evaluation: 01/12/18 Time of Evaluation: 10:00 - Subjective Subjective: GI Progress Note _Dr. Castaneda Pt was seen and examined at bedside. Pt siting up comfortably. No acute or adverse events overnight as per nursing staff. Pt states she has mild abdominal soreness, and migraine. Pt clinically improved during course of admission. Pt denied fever, chills, sob, chest pains, nausea, vomiting, melena, diarrhea, hematochezia, or urinary symptoms. Objective - Vital Signs/Intake and Output Vital Signs (last 24 hours): Temp Pulse Resp BP Pulse Ox 98.1 F 65 18 125/82 100 01/12/18 09:00 01/12/18 09:00 01/12/18 09:00 01/12/18 09:00 01/12/18 09:00 Intake and Output: 01/12/18 01/12/18 06:59 18:59 Intake Total 540 Balance 540 - Medications Medications: Current Medications Acetaminophen (Tylenol 325mg Tab) 650 mg PO Q4H PRN PRN Reason: Fever >100.5 F Last Admin: 01/12/18 08:15 Dose: 650 mg Ciprofloxacin (Cipro) 500 mg PO Q12 [facility] PRN Reason: Protocol Stop: 01/16/18 10:01 Last Admin: 01/12/18 09:08 Dose: 500 mg Famotidine (Pepcid) 20 mg PO 1000,2200 [facility] Last Admin: 01/12/18 09:08 Dose: 20 mg Magnesium Oxide (Mag-Ox) 400 mg PO BID [facility] Stop: 01/15/18 10:01 Last Admin: 01/12/18 10:19 Dose: 400 mg Metronidazole (Flagyl) 500 mg PO Q8 [place] PRN Reason: Protocol Last Admin: 01/12/18 05:21 Dose: 500 mg Ondansetron HCl (Zofran Tab) 4 mg PO Q8H PRN PRN Reason: Nausea/Vomiting Last Admin: 01/12/18 10:20 Dose: 4 mg Oxycodone/Acetaminophen (Percocet 2.5/325 Mg Tab) 1 tab PO Q6H PRN PRN Reason: Pain, moderate (4-7) Last Admin: 01/12/18 11:42 Dose: 1 tab - Labs Labs: 01/12/18 05:45 01/12/18 05:45 PT 12.4 SECONDS (9.4-12.5) 01/08/18 10:30 INR 1.08 (0.93-1.08) 01/08/18 10:30 APTT 25.3 Seconds (25.1-36.5) 01/08/18 10:30 - Constitutional Appears: No Acute Distress - Head Exam Head Exam: ATRAUMATIC, NORMAL INSPECTION, NORMOCEPHALIC - Eye Exam Eye Exam: EOMI, Normal appearance, PERRL Pupil Exam: NORMAL ACCOMODATION, PERRL - ENT Exam ENT Exam: Mucous Membranes Moist, Normal Exam - Neck Exam Neck Exam: Full ROM, Normal Inspection. absent: Lymphadenopathy - Respiratory Exam Respiratory Exam: Clear to Ausculation Bilateral, NORMAL BREATHING PATTERN - Cardiovascular Exam Cardiovascular Exam: REGULAR RHYTHM, +S1, +S2. absent: Murmur - GI/Abdominal Exam GI & Abdominal Exam: Soft, Tenderness (LLQ), Normal Bowel Sounds - Neurological Exam Neurological Exam: Alert, Awake, CN II-XII Intact, Normal Gait, Oriented x3 - Psychiatric Exam Psychiatric exam: Normal Affect, Normal Mood - Skin Skin Exam: Dry, Intact, Normal Color, Warm Assessment and Plan - Assessment and Plan (Free Text) Assessment: Assessment: Colitis, consider is infectious, inflammatory or ischemic, N/V D, with hemetemesis liekly 2/[address] Abd demonstrated thickening of left colon suggestive of colitis History of nephrolithiasis Abdominal bloating Plan: Pt is clinically improved. Continue abx: Cipro/flagyl x 7days Continue GI prophylaxis pepcid/ppi x 6-8 wks, avoid NSAIDs may benefit from elective EGD/Colonoscopy in 6-8 wks. Thank you for this consult and follow us participate in your patient's care. Further recommendations based on clinical course. Seen and discussed with Dr. Castaneda. <Mckayla Castaneda V - Last Filed: 01/12/18 23:12> Objective - Vital Signs/Intake and Output Vital Signs (last 24 hours): Temp Pulse Resp BP Pulse Ox 98.1 F 65 18 125/82 100 01/12/18 09:00 01/12/18 09:00 01/12/18 09:00 01/12/18 09:00 01/12/18 09:00 - Labs Labs: 01/12/18 05:45 01/12/18 05:45 PT 12.4 SECONDS (9.4-12.5) 01/08/18 10:30 INR 1.08 (0.93-1.08) 01/08/18 10:30 APTT 25.3 Seconds (25.1-36.5) 01/08/18 10:30 Attending/Attestation - Attestation I have personally seen and examined this patient.: Yes I have fully participated in the care of the patient.: Yes I have reviewed all pertinent clinical information, including history, physical exam and plan: Yes Notes (Text): This is an addendum to GI consult report dictated by the Mascara Molder.The patient was seen and examined earlier. Medical records, lab studies, imagings were reviewed. Last 24 hours events reviewed. Agreed with the above treatment plan as outlined in Mascara Molder 's notes the with the addition of the following 01/12/18 23:12
== END 2018-01-12 14:45 | disposition home or self-care (01) | DRG 551 ==
LOC: ED 09:33 → ERH 14:37 → 3RNO 15:37 → OBSVTOIN 01-09 10:09
PROVIDERS: ADMIT Hospitalist; ATTEND Internal Medicine
DX: K52.9 Noninfective gastroenteritis and colitis, unspecified (principal); K22.6 Gastro-esophageal laceration-hemorrhage syndrome; N18.9 Chronic kidney disease, unspecified; D72.819 Decreased white blood cell count, unspecified; K57.30 Diverticulosis of large intestine without perforation or abscess without bleeding; G43.909 Migraine, unspecified, not intractable, without status migrainosus; F17.210 Nicotine dependence, cigarettes, uncomplicated; Z80.8 Family history of malignant neoplasm of other organs or systems; Z83.3 Family history of diabetes mellitus; Z87.442 Personal history of urinary calculi; Z98.51 Tubal ligation status; R40.2412 Glasgow coma scale score 13-15, at arrival to emergency department

== ENCOUNTER 2018-02-12 10:06 | Emergency (ER) | payer MEDICAID ==
[2018-02-12 10:07] VITALS: BMI 22.7
[2018-02-12 10:26] VITALS: BP 142/88; PULSE 107; RESP 16; TEMP 98.1; O2SAT 99
--- NOTE | 2018-02-12 11:04 | ED PDOC ---
Arrival/HPI - General Chief Complaint: GI Problem Time Seen by Provider: 02/12/18 10:44 Historian: Patient - History of Present Illness Narrative History of Present Illness (Text): 02/12/18 11:00 A 37 year old female, whose past medical history includes kidney stones and colitis, presents to the emergency department complaining of hemorrhoids for 1 week. Patient reports last here in the ER was admitted for colitis. Patient states having been discharged too soon from hospital and was directed by PMD to [facility] for colitis. Was prescribed medications on 01/16/18. For hemorrhoids, PMD prescribed medications and also instructed patient to take over-counter creams. Patient has used Hemorrhoid Ointment, Lidocaine Hydrochloride Jelly, and Proctozone. Patient denies any injury to area of hemorrhoids, appetite changes, or any other complaints at this time. PMD: Dr. Perkins Time/Duration: 1 week Symptom Onset: Sudden Symptom Course: Unchanged Past Medical History - Provider Review Nursing Documentation Reviewed: Yes - Past History Past History: Non-Contributing - Infectious Disease Hx of Infectious Diseases: None - Tetanus Immunization Tetanus Immunization: Unknown - Past Medical History Past Medical History: No Previous - Cardiac Hx Cardiac Disorders: No - Pulmonary Hx Respiratory Disorders: No - Neurological Hx Neurological Disorder: Yes Hx Seizures: Yes - HEENT Hx HEENT Disorder: No - Renal Hx Renal Disorder: Yes Hx Kidney Stones: Yes Other/Comment: Left renal cyst - Endocrine/Metabolic Hx Endocrine Disorders: No - Hematological/Oncological Hx Blood Disorders: No - Integumentary Hx Dermatological Disorder: No - Musculoskeletal/Rheumatological Hx Musculoskeletal Disorders: No - Gastrointestinal Hx Gastrointestinal Disorders: Yes Hx Colitis: Yes Hx Hemorrhoids: Yes - Genitourinary/Gynecological Hx Genitourinary Disorders: No - Psychiatric Hx Psychophysiologic Disorder: No Hx Substance Use: No - Surgical History Hx Tubal Ligation: Yes Other/Comment: CYST REMOVED FROM LEFT KIDNEY - Anesthesia Hx Anesthesia: Yes Hx Anesthesia Reactions: No Hx Malignant Hyperthermia: No - Suicidal Assessment Feels Threatened In Home Enviroment: No Family/Social History - Physician Review Nursing Documentation Reviewed: Yes Family/Social History: No Known Family HX Smoking Status: Light Smoker < 10 Cigarettes Daily Hx Alcohol Use: Yes Hx Substance Use: No Hx Substance Use Treatment: Yes Allergies/Home Meds Allergies/Adverse Reactions: Allergies No Known Allergies Allergy (Verified 02/12/18 10:18) Home Medications: Home Meds Medication Instructions Recorded Confirmed Lidocaine 2% Gel [Xylocaine 2% 1 apful TOP PRN PRN 02/12/18 02/12/18 (Uro-Jet)] Review of Systems - Physician Review All systems were reviewed & negative as marked: Yes - Review of Systems Gastrointestinal: Constipation. absent: Abdominal Pain, Vomiting, Appetite Changes Skin: Other (hemorroids to rectal area) Physical Exam Vital Signs Reviewed: Yes Vital Signs Temp Pulse Resp BP Pulse Ox 02/12/18 10:21 98.1 F 107 H 16 142/88 99 Blood Pressure: Normal Pulse: Regular Respiratory Rate: Normal Appearance: Positive for: Well-Appearing Pain Distress: None Mental Status: Positive for: Alert and Oriented X 3 - Systems Exam Head: Present: Atraumatic, Normocephalic Pupils: Present: PERRL Extroacular Muscles: Present: EOMI Conjunctiva: Present: Normal Mouth: Present: Moist Mucous Membranes Neck: Present: Normal Range of Motion Respiratory/Chest: Present: Clear to Auscultation, Good Air Exchange. No: Respiratory Distress, Accessory Muscle Use Cardiovascular: Present: Regular Rate and Rhythm, Normal S1, S2. No: Murmurs Abdomen: Present: Tenderness (mild RUQ tenderness). No: Guarding Rectal: Present: Other (1 1/2 cm abscess to lower perianal area and 1cm abscess to the left side of perianal area). No: Hemorrhoids (no external hemorrhoids visualized) Back: Present: Normal Inspection Upper Extremity: Present: Normal Inspection. No: Cyanosis, Edema Lower Extremity: Present: Normal Inspection. No: Edema Neurological: Present: GCS=15, CN II-XII Intact, Speech Normal Skin: Present: Warm, Dry, Normal Color. No: Rashes Psychiatric: Present: Alert, Oriented x 3, Normal Insight, Normal Concentration Medical Decision Making ED Course and Treatment: 02/12/18 11:05 Impression: 37 year old female with hemorrhoid complaint. Physical exam shows 1 1/2 cm abscess in rectal, no external hemorrhoids visualized DDx: Perianal Abscess Plan: -- Motrin -- Surgical Consult -- Reassess and disposition Prior Visits: Notes and results from previous visits were reviewed. Patient was last seen in the emergency department on 01/09/2018 for blood in stool. Patient was admitted. 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 He completed an I&D as per his note with no complication and good drainage. There was question if it was near the labia so the patient was also referred to f/u with obgyn. She was given bactrim as well for 10days and advised to return to the ED if symptoms worsen, fever, or any other concern. - Lab Interpretations Microbiology Results: Microbiology Results 02/12/18 11:30 Abscess - Abscess Gram Stain - Preliminary - Medication Orders Current Medication Orders: Discontinued Medications Ibuprofen (Motrin Tab) 600 mg PO STAT STA Stop: 02/12/18 11:06 Last Admin: 02/12/18 11:43 Dose: 600 mg MAR Pain/Vitals Document 02/12/18 11:43 MS (Rec: 02/12/18 11:44 MS [id number]) Pain Reassessment Is This A Pain ReAssessment? No Sleep Is patient sleeping during reassessment? No Presence of Pain Presence of Pain Yes Pain Scale Used Pain Scale Used Numeric Location Pain Location Body Site Rectum Description Constant Intensity 9 Pain Behavior Guarding Restlessness Lidocaine/Epinephrine (Lidocaine/Epi 1% 1:[id number] 20 Ml) 20 ml IJ ONCE ONE Stop: 02/12/18 11:26 Last Admin: 02/12/18 11:44 Dose: 20 ml Trimethoprim/Sulfamethoxazole (Bactrim Ds Tab) 1 tab PO STAT STA PRN Reason: Protocol Stop: 02/12/18 11:58 Last Admin: 02/12/18 12:08 Dose: 1 tab - Scribe Statement The provider has reviewed the documentation as recorded by the Myah Paige Provider Scribe Attestation: All medical record entries made by the Myah were at my direction and personally dictated by me. I have reviewed the chart and agree that the record accurately reflects my personal performance of the history, physical exam, medical decision making, and the department course for this patient. I have also personally directed, reviewed, and agree with the discharge instructions and disposition. Disposition/Present on Arrival - Present on Arrival Any Indicators Present on Arrival: No History of DVT/PE: No History of Uncontrolled Diabetes: No Urinary Catheter: No History of Decub. Ulcer: No History Surgical Site Infection Following: None - Disposition Have Diagnosis and Disposition been Completed?: Yes Diagnosis: Abscess Disposition: HOME/ ROUTINE Disposition Time: 12:09 Patient Plan: Discharge Condition: IMPROVED Additional Instructions: Ms Rizvi, thank you for letting us take care of you today. Your provider was Dr. Driver. You were treated for Abscess. The emergency medical care you received today was directed at your acute symptoms. If you were prescribed any medication, please fill it and take as directed. It may take several days for your symptoms to resolve. Return to the Emergency Department if your symptoms worsen, do not improve, or if you have any other problems. Please contact your doctor or call one of the physicians/clinics you have been referred to that are listed on the Patient Visit Information form that is included in your discharge packet. Bring any paperwork you were given at discharge with you along with any medications you are taking to your follow up visit. Our treatment cannot replace ongoing medical care by a primary care provider (PCP) outside of the emergency department. Thank you for allowing the [facility] team to be part of your care today. If you had an X-Ray or CT scan: A Radiologist will review the ED reading if any change in treatment is needed we will contact you. If you had a blood, urine, or wound culture: It will take several days for the results, if any change in treatment is needed we will contact you. If you had an STI test: It will take 48 hours for the results. Please call after 1 week if you have not heard back. Prescriptions: Sulfamethoxazole/Trimethoprim [Bactrim DS 800 mg-160 mg] 1 tab PO Q12 #20 tab Referrals: Edgardo Suresh MD [Family Provider] - Follow up with primary Levi Sullivan MD [Staff Provider] - Follow up with primary Forms: [employer] (Cameroonian), WORK NOTE
[2018-02-12] MEDS ORDERED: Lidocaine/Epi 1% 1:100000 20 ML IJ ONE (11:25)
--- NOTE | 2018-02-12 11:26 | CP.PCM.CON ---
History of Present Illness - History of Present Illness History of Present Illness: General Surgery: Dr Santillan Pt is a 37F with recent history of colitis treated at [facility] with abx. Pt comes to ED for evaluation of rectal pain. Reports she has been having pain there for 2-3 days. Admits to associated constipation and subjective fevers. On examination pt has 2 abscesses, amaris-anal and posterior labial. Pt agrees to I& D which was done at bedside. Review of Systems - Review of Systems All systems: reviewed and no additional remarkable complaints except (as per hpi ) Past Patient History - Infectious Disease Hx of Infectious Diseases: None - Tetanus Immunizations Tetanus Immunization: Unknown - Past Social History Smoking Status: Light Smoker < 10 Cigarettes Daily - CARDIAC Hx Cardiac Disorders: No - PULMONARY Hx Respiratory Disorders: No - NEUROLOGICAL Hx Neurological Disorder: Yes Hx Seizures: Yes - HEENT Hx HEENT Problems: No - RENAL Hx Chronic Kidney Disease: Yes Hx Kidney Stones: Yes Other/Comment: Left renal cyst - ENDOCRINE/METABOLIC Hx Endocrine Disorders: No - HEMATOLOGICAL/ONCOLOGICAL Hx Blood Disorders: No - INTEGUMENTARY Hx Dermatological Problems: No - MUSCULOSKELETAL/RHEUMATOLOGICAL Hx Musculoskeletal Disorders: No - GASTROINTESTINAL Hx Gastrointestinal Disorders: Yes Hx Colitis: Yes Hx Hemorrhoids: Yes - GENITOURINARY/GYNECOLOGICAL Hx Genitourinary Disorders: No - PSYCHIATRIC Hx Psychophysiologic Disorder: No Hx Substance Use: No - SURGICAL HISTORY Hx Tubal Ligation: Yes Other/Comment: CYST REMOVED FROM LEFT KIDNEY - ANESTHESIA Hx Anesthesia: Yes Hx Anesthesia Reactions: No Hx Malignant Hyperthermia: No Meds Home Medications: Home Medication List Medication Instructions Recorded Confirmed Type Sulfamethoxazole/Trimethoprim 1 tab PO Q12 #20 tab 02/12/18 Rx [Bactrim DS 800 mg-160 mg] Allergies/Adverse Reactions: Allergies Allergy/AdvReac Type Severity Reaction Status Date / Time No Known Allergies Allergy Verified 02/12/18 10:18 Physical Exam - Constitutional Appears: Non-toxic, No Acute Distress - Head Exam Head Exam: NORMAL INSPECTION - Eye Exam Eye Exam: Normal appearance - ENT Exam ENT Exam: Mucous Membranes Moist - Respiratory Exam Respiratory Exam: absent: Accessory Muscle Use, Respiratory Distress - Cardiovascular Exam Cardiovascular Exam: Tachycardia. absent: REGULAR RHYTHM - GI/Abdominal Exam GI & Abdominal Exam: Soft. absent: Tenderness - Rectal Exam Additional comments: 1x1 cm abscess on posterior labia and 0.5 x 1 cm in perianal region - Extremities Exam Extremities exam: Negative for: pedal edema Results - Vital Signs Recent Vital Signs: Last Vital Signs Temp 98.1 F 02/12/18 10:21 Pulse 107 H 02/12/18 10:21 Resp 16 02/12/18 10:21 BP 142/88 02/12/18 10:21 Pulse Ox 99 02/12/18 10:21 Assessment & Plan - Assessment and Plan (Free Text) Assessment: 37F with amaris-anal/labial abscess Plan: s/p I&D d/c on Bactrim f/u with OB clinic or surgery clinic in 1 week cultures sent d/w Dr Tyrell Eli, PGY3 - Incision & Drainage Of Abscess Anesthesia: Lidocaine 1%, With Epi Prep Used: Sterile Water Procedure: Incised W/Scalpel Blade#: (11), Drained Pus
[2018-02-12] MEDS ORDERED: Tmp-Smz 800 mg-160 mg DS Tab PO STA (11:57)
== END 2018-02-12 12:09 | disposition home or self-care (01) ==
LOC: ED 10:06
DX: K61.0 Anal abscess (principal)

== ENCOUNTER 2018-05-04 09:35 | Inpatient (IN) | payer MEDICAID ==
[2018-05-04 09:46] VITALS: BMI 21.2
[2018-05-04] MEDS ORDERED: Sodium Chloride 0.9% 1,000 ML IV STA (10:13)
--- NOTE | 2018-05-04 10:14 | ED PDOC ---
Arrival/HPI - General Historian: Patient - History of Present Illness Time/Duration: < week Symptom Onset: Gradual Symptom Course: Unchanged Quality: Aching - General Chief Complaint: GI Problem Time Seen by Provider: 05/04/18 09:44 - History of Present Illness Narrative History of Present Illness (Text): 05/04/18 10:08 Pt is a 37 yo F with PMH of nephrolithiasis, h.pylori, and colitis presents to the emergency department with 3 day history of worsening abdominal pain. Patient states that 2 weeks ago she had underwent EGD and was diagnosed with H. pylori infection. She was placed on triple therapy, which she has since completed. Patient was continued on flagyl due to on going colitis. Patient states that she also had a stool study performed and was told that parasites were found in stool. Patient was due for follow up with GI on May 18, but abdominal pain became so severe that she had to come to the emergency department. Currently, patient states that abdominal pain is achy, left sided, and suprapubic. Patient admits to nausea, diarrhea with BRBPR, but denies melena. Patient states that urine is foul smelling, but denies hematuria or dysuria. Patient denies CP, SOB, vomiting, fever, chills, HINTON, or dizziness. PMD: Demetrice GI: Flakito Lainez) Past Medical History - Provider Review Nursing Documentation Reviewed: Yes - Past History Past History: Non-Contributing - Infectious Disease Hx of Infectious Diseases: None - Tetanus Immunization Tetanus Immunization: Unknown - Past Medical History Past Medical History: No Previous - Cardiac Hx Cardiac Disorders: No - Pulmonary Hx Respiratory Disorders: No - Neurological Hx Neurological Disorder: Yes Hx Seizures: Yes - HEENT Hx HEENT Disorder: No - Renal Hx Renal Disorder: Yes Hx Kidney Stones: Yes Other/Comment: Left renal cyst - Endocrine/Metabolic Hx Endocrine Disorders: No - Hematological/Oncological Hx Blood Disorders: No - Integumentary Hx Dermatological Disorder: No - Musculoskeletal/Rheumatological Hx Musculoskeletal Disorders: No - Gastrointestinal Hx Gastrointestinal Disorders: Yes Hx Colitis: Yes Hx Hemorrhoids: Yes - Genitourinary/Gynecological Hx Genitourinary Disorders: No - Psychiatric Hx Psychophysiologic Disorder: No Hx Substance Use: No - Surgical History Hx Tubal Ligation: Yes Other/Comment: CYST REMOVED FROM LEFT KIDNEY - Anesthesia Hx Anesthesia: Yes Hx Anesthesia Reactions: No Hx Malignant Hyperthermia: No - Suicidal Assessment Feels Threatened In Home Enviroment: No Family/Social History - Physician Review Nursing Documentation Reviewed: Yes Family/Social History: No Known Family HX Smoking Status: Light Smoker < 10 Cigarettes Daily Hx Alcohol Use: Yes Hx Substance Use: No Hx Substance Use Treatment: Yes Allergies/Home Meds Allergies/Adverse Reactions: Allergies No Known Allergies Allergy (Verified 05/04/18 20:18) Review of Systems - Physician Review All systems were reviewed & negative as marked: Yes - Review of Systems Constitutional: Normal Eyes: Normal ENT: Normal Respiratory: Normal Cardiovascular: Normal Gastrointestinal: Abdominal Pain, Stool Changes, Diarrhea, Nausea, Hematochezia. absent: Vomiting Genitourinary Female: Normal Musculoskeletal: Normal Skin: Normal Neurological: Normal Endocrine: Normal Hemo/Lymphatic: Normal Psychiatric: Normal Physical Exam Temperature: Afebrile Blood Pressure: Normal Pulse: Regular Respiratory Rate: Normal Appearance: Positive for: Uncomfortable Pain Distress: Moderate Mental Status: Positive for: Alert and Oriented X 3 - Systems Exam Head: Present: Atraumatic, Normocephalic Pupils: Present: PERRL Extroacular Muscles: Present: EOMI Conjunctiva: Present: Normal Mouth: Present: Moist Mucous Membranes Neck: Present: Normal Range of Motion Respiratory/Chest: Present: Clear to Auscultation, Good Air Exchange. No: Respiratory Distress, Accessory Muscle Use Cardiovascular: Present: Regular Rate and Rhythm, Normal S1, S2. No: Murmurs Abdomen: Present: Tenderness (left sided, suprapubic), Guarding. No: Distention , Peritoneal Signs Rectal: Present: Hemorrhoids (external at 12 o'clock position), Normal Rectal Tone. No: Occult Blood (Guaiac Negative), Rectal Tenderness, Gross Blood, Melena, Fissures Back: Present: Normal Inspection Upper Extremity: Present: Normal Inspection. No: Cyanosis, Edema Lower Extremity: Present: Normal Inspection. No: Edema Neurological: Present: GCS=15, CN II-XII Intact, Speech Normal Skin: Present: Warm, Dry, Normal Color. No: Rashes Psychiatric: Present: Alert, Oriented x 3, Normal Insight, Normal Concentration Vital Signs Temp Pulse Resp BP Pulse Ox 05/04/18 16:29 82 18 138/79 99 05/04/18 13:11 88 18 132/78 98 05/04/18 09:36 98.0 F 98 H 18 148/86 100 Medical Decision Making ED Course and Treatment: 05/04/18 10:26 37 yo F presents to emergency department with worsening abdominal pain. Plan: - CBC, CMP - Coags - Lipase - Type and screen - C. diff - Stool culture - Stool ova and parasites - Urinalysis - Tylenol - IVF - NPO - Reassess and disposition 05/04/18 11:09 Urinalysis positive for UTI. Rocephin IVPB ordered. 05/04/18 14:35 CT abdomen/pelvis Impression: No acute abdominal or pelvic abnormality. Evaluation of the bowel is limited in the absence of oral contrast. Moderate amount of stool in the left hemicolon. No bowel obstruction. Mild hepatomegaly and fatty liver. 05/04/18 15:16 Case discussed with patient's fish straightener, Dr. Alberts ([phone]). He stated that she had completed triple therapy for H. pylori. But was placed on PO flagyl due to C. diff found on stool studies, which she has been on for the past 3 days. 05/04/18 15:[address] Oh, who agrees with plan and accepts patient under hospitalist service. Patient will be admitted to med/surg. (Flakito Ellsworth) 05/08/18 07:46 pt seenw [facility], s/p persisent diarrhea bloody stool with h/o of cdiff. needs admission for failed outpt tx. (Jayjay Talavera) - Lab Interpretations Microbiology Results: Microbiology Results 05/04/18 12:00 Stool Ova and Parasite Concentrate Exam - Final 05/04/18 11:54 Stool Stool Culture - Final NO SALMONELLA, SHIGELLA OR CAMPYLOBACTER ISOLATED. 05/04/18 11:54 Stool C. difficile Antigen & Toxin A,B (M - Final 05/04/18 10:06 Urine,Clean Catch Urine Culture - Final <10,000 CFU/ML. MULTIPLE SPECIES. PROBABLE CONTAMINATION. Lab Results: 05/04/18 13:17 05/04/18 11:22 Lab Results 05/04/18 13:17: WBC 3.6 L, RBC 3.16 L, Hgb 10.7 L, Hct 30.9 L, MCV 97.8, MCH 33.9, MCHC 34.6, RDW 13.6, Plt Count 215, MPV 9.4, Gran % 50.8, Lymph % (Auto) 41.6 H, Dickenson % (Auto) 4.5, Eos % (Auto) 2.5, Baso % (Auto) 0.6, Gran # 1.82, Lymph # (Auto) 1.5, Dickenson # (Auto) 0.2, Eos # (Auto) 0.1, Baso # (Auto) 0.02 05/04/18 11:22: Blood Type A POSITIVE, Antibody Screen Negative, BBK History Checked Patient has bt 05/04/18 11:22: Sodium 143, Potassium 3.4 L, Chloride 107, Carbon Dioxide 25, Anion Gap 14, BUN 11, Creatinine 0.6 L, Est GFR ( Amer) > 60, Est GFR ( Non-Af Amer) > 60, Random Glucose 93, Calcium 8.8, Magnesium 1.4 L, Total Bilirubin 0.5, AST 29, ALT 25, Alkaline Phosphatase 34 L D, Total Protein 6.8, Albumin 3.9, Globulin 2.9, Albumin/Globulin Ratio 1.3, Lipase 109 05/04/18 11:22: PT 11.6, INR 1.01, APTT 24.9 L 05/04/18 10:06: Urine Color Yellow, Urine Appearance Turbid, Urine pH 6.0, Ur Specific [place] 1.025, Urine Protein Trace H, Urine Glucose (UA) Negative, Urine Ketones Negative, Urine Blood Moderate H, Urine Nitrate Positive H, Urine Bilirubin Small H, Urine Urobilinogen 0.2, Ur Leukocyte Esterase Trace H, Urine RBC 0 - 2, Urine WBC 1 - 3, Ur Epithelial Cells Many, Urine Bacteria Few - RAD Interpretation Radiology Orders: 05/04/18 12:28 ABD & PELVIS IV CONTRAST ONLY [CT] Stat - Medication Orders Current Medication Orders: Discontinued Medications Acetaminophen (Tylenol 325mg Tab) 975 mg PO STAT STA Stop: 05/04/18 10:14 Last Admin: 05/04/18 10:40 Dose: 975 mg MAR Pain/Vitals Document 05/04/18 10:40 GMD (Rec: 05/04/18 10:40 GMD [id number]) Pain Reassessment Is This A Pain ReAssessment? No Acetaminophen (Tylenol 325mg Tab) 650 mg PO Q6H PRN PRN Reason: Pain, moderate (4-7) Last Admin: 05/05/18 09:52 Dose: 650 mg MAR Pain/Vitals Document 05/05/18 09:52 WERO (Rec: 05/05/18 09:52 WERO [facility] [place]-[id number]) Pain Reassessment Is This A Pain ReAssessment? No Presence of Pain Presence of Pain Yes Sodium Chloride (Sodium Chloride 0.9%) 1,000 mls @ 999 mls/hr IV .Q1H1M STA Stop: 05/04/18 11:13 Last Admin: 05/04/18 10:40 Dose: 999 mls/hr eMAR Start Stop Document 05/04/18 10:40 GMD (Rec: 05/04/18 10:40 GMD [id number]) Intravenous Solution Start Date 05/04/18 Start Time 10:40 End Date 05/04/18 End time 11:41 Total Infusion Time 61 Ceftriaxone Sodium (Rocephin 1 Gram Ivpb) 1 gm in 100 mls @ 100 mls/hr IVPB STAT STA PRN Reason: Protocol Stop: 05/04/18 12:08 Last Admin: 05/04/18 11:19 Dose: 100 mls/hr eMAR Start Stop Document 05/04/18 11:19 GMD (Rec: 05/04/18 11:19 GMD [id number]) Intravenous Solution Start Date 05/04/18 Start Time 11:19 End Date 05/04/18 End time 12:19 Total Infusion Time 60 Metronidazole (Flagyl) 500 mg in 100 mls @ 100 mls/hr IVPB Q8 [place] PRN Reason: Protocol Last Admin: 05/05/18 05:16 Dose: 100 mls/hr eMAR Start Stop Document 05/05/18 05:16 KP (Rec: 05/05/18 05:17 KP [id number]) Intravenous Solution Start Date 05/05/18 Start Time 05:16 Magnesium Sulfate (Magnesium Sulfate 2 Gm/50 Ml Water) 2 gm in 50 mls @ 50 mls/ hr IVPB ONCE ONE Stop: 05/04/18 16:54 Last Admin: 05/04/18 18:05 Dose: 50 mls/hr eMAR Start Stop Document 05/04/18 18:05 DSZ (Rec: 05/04/18 18:06 DSZ [facility] [id number]) Intravenous Solution Start Date 05/04/18 Start Time 18:05 Sodium Chloride (Sodium Chloride 0.9%) 1,000 mls @ 100 mls/hr IV .Q10H [place] Last Admin: 05/05/18 03:13 Dose: Ondansetron HCl (Zofran Inj) 4 mg IVP Q6H PRN PRN Reason: Nausea/Vomiting Oxycodone/Acetaminophen (Percocet 5/325 Mg Tab) 1 tab PO Q6H PRN PRN Reason: Pain, severe (8-10) Last Admin: 05/04/18 18:11 Dose: 1 tab [facility] Pain Assessment Document 05/04/18 18:11 DSZ (Rec: 05/04/18 18:13 DSZ [facility] [id number]) Pain Reassessment Is this a pain reassessment? No Sleep Is patient sleeping during reassessment? No Presence of Pain Presence of Pain Yes Pain Scale Used Pain Scale Used Numeric Location Left, Right or Bilateral Bilateral Upper or Lower Lower Pain Location Body Site Abdomen Description Description Constant Intensity of Pain at present 9 Acceptable Level of Pain 4 Radiation Location back left Duration 60 Pain Behavior Moaning Withdrawal from Touch Aggravating Factors Exercise/Activity Alleviating Factors/Management Medication Techniques Alleviating Factors Medication Re-Assess: [facility] Pain Assessment Document 05/04/18 19:11 KP (Rec: 05/04/18 20:[address] [id number] Pain Reassessment Is this a pain reassessment? Yes Sleep Is patient sleeping during reassessment? No Presence of Pain Presence of Pain No Oxycodone/Acetaminophen (Percocet 5/325 Mg Tab) 1 tab PO ONCE ONE Stop: 05/05/18 02:25 Last Admin: 05/05/18 02:33 Dose: 1 tab [facility] Pain Assessment Document 05/05/18 02:33 KP (Rec: 05/05/18 02:[address] [id number]) Pain Reassessment Is this a pain reassessment? No Sleep Is patient sleeping during reassessment? No Presence of Pain Presence of Pain Yes Re-Assess: [facility] Pain Assessment Document 05/05/18 03:33 KP (Rec: 05/05/18 04:36 KP [id number]) Pain Reassessment Is this a pain reassessment? Yes Sleep Is patient sleeping during reassessment? Yes Pantoprazole Sodium (Protonix Inj) 40 mg IVP STAT STA Stop: 05/04/18 13:15 Last Admin: 05/04/18 13:20 Dose: 40 mg IVP Administration Document 05/04/18 13:20 GMD (Rec: 05/04/18 13:20 GMD [id number]) Charges for Administration # of IVP Administrations 1 Pantoprazole Sodium (Protonix Inj) 40 mg IVP Q12 [place] Last Admin: 05/05/18 09:52 Dose: 40 mg IVP Administration Document 05/05/18 09:52 WERO (Rec: 05/05/18 09:53 WERO [facility] [id number]) Charges for Administration # of IVP Administrations 1 Pneumococcal Polyvalent Vaccine (Pneumovax 23 Vaccine) 0.5 ml IM .ONCE ONE Stop: 05/04/18 21:24 Potassium Chloride (K-Dur 20 Meq Er Tab) 40 meq PO STAT STA Stop: 05/04/18 15:57 Last Admin: 05/04/18 16:24 Dose: 40 meq Vancomycin HCl (Vancocin 25 Mg/Ml (Oral Use)) 125 mg PO QID PARSI PRN Reason: Protocol Last Admin: 05/05/18 09:53 Dose: 125 mg Disposition/Present on Arrival - Present on Arrival Any Indicators Present on Arrival: No History of DVT/PE: No History of Uncontrolled Diabetes: No Urinary Catheter: No History of Decub. Ulcer: No History Surgical Site Infection Following: None - Disposition Have Diagnosis and Disposition been Completed?: Yes Disposition Time: 17:39 Patient Plan: Admission - Disposition Diagnosis: Abdominal pain Disposition: HOSPITALIZED Condition: STABLE
[2018-05-04 11:04] LABS: URINE BILIRUBIN SMALL (NEGATIVE); URINE BLOOD MODERATE (NEGATIVE); URINE GLUCOSE (UA) NEGATIVE (NEGATIVE); URINE LEUKOCYTE ESTERASE TRACE Leu/uL (NEGATIVE); URINE PROTEIN TRACE mg/dL (<30 mg/dL); URINE UROBILINOGEN 0.2 E.U./dL (<1 E.U./dL)
[2018-05-04 11:07] LABS: URINE APPEARANCE TURBID (CLEAR); URINE COLOR YELLOW (YELLOW)
[2018-05-04 11:08] LABS: URINE BACTERIA FEW (NEG); URINE EPITHELIAL CELLS MANY /hpf (0-5); URINE RBC 0 - 2 /hpf (0-2)
[2018-05-04] MEDS ORDERED: cefTRIAXone 1 gm 1 GM/100 ML BAG IVPB STA (11:09)
[2018-05-04 11:39] LABS: INR 1.01 (0.93-1.08); PARTIAL THROMBOPLASTIN TIME 24.9 Seconds (25.1-36.5); PROTHROMBIN TIME 11.6 SECONDS (9.4-12.5)
[2018-05-04 12:27] LABS: ALB/GLOB RATIO 1.3 (1.1-1.8); ALBUMIN 3.9 g/dL (3.0-4.8); ALT/SGPT 25 U/L (7-56); AST/SGOT 29 U/L (14-36); BLOOD UREA NITROGEN 11 mg/dL (7-21); CALCIUM 8.8 mg/dL (8.4-10.5); GFR NON-AFRICAN AMERICAN > 60; LIPASE 109 U/L (23-300)
[2018-05-04] MEDS ORDERED: Iohexol 350 MG/100 ML VIAL ONE (12:39)
[2018-05-04 13:32] LABS: BASO # 0.02 K/mm3 (0.0-2.0); BASO % 0.6 % (0.0-3.0); EOS # 0.1 (0.0-0.7); EOS % 2.5 % (1.5-5.0); GRAN # 1.82 (1.4-6.5); GRAN % 50.8 % (50.0-68.0); HEMOGLOBIN 10.7 g/dL (12.0-16.0); LYMPH # 1.5 (1.2-3.4); LYMPH % 41.6 % (22.0-35.0); MEAN CELL VOLUME 97.8 fl (80.0-105.0); MEAN CORPUSCULAR HEMOGLOBIN 33.9 pg (25.0-35.0); MEAN CORPUSCULAR HGB CONC 34.6 g/dl (31.0-37.0); MEAN PLATELET VOLUME 9.4 fl (7.0-11.0); MONO # 0.2 (0.1-0.6); MONO % 4.5 % (1.0-6.0); RBC 3.16 10^6/uL (3.5-6.1); RED CELL DISTRIBUTION WIDTH 13.6 % (11.5-14.5); WHITE BLOOD COUNT 3.6 10^3/ul (4.5-11.0)
--- NOTE | 2018-05-04 14:01 | CT ---
PROCEDURE: CT Abdomen and Pelvis with contrast HISTORY: left sided abd pain COMPARISON: 01/08/2018. TECHNIQUE: CT scan of the abdomen and pelvis was performed after administration of intravenous contrast. Oral contrast was not administered. Coronal and sagittal reformatted images were obtained. Contrast Contrast dose: 100 mL Omnipaque 350 Radiation dose: Total exam DLP = 344.94 mGy-cm. This CT exam was performed using one or more of the following dose reduction techniques: Automated exposure control, adjustment of the mA and/or kV according to patient size, and/or use of iterative reconstruction technique. FINDINGS: LOWER THORAX: The visualized lungs are clear. LIVER: Mild hepatomegaly and diffuse fatty infiltration in. No gross lesion or ductal dilatation. GALLBLADDER AND BILE DUCTS: The gallbladder is contracted. PANCREAS: Normal in size with homogeneous enhancement. No gross lesion or ductal dilatation. SPLEEN: Normal in size and appearance. ADRENALS: No discrete nodule. KIDNEYS AND URETERS: Normal in size with homogeneous enhancement. No hydronephrosis. No solid mass. There is redemonstration of a cortical scar and subjacent calcification in the upper pole of the left kidney. VASCULATURE: No aortic aneurysm. BOWEL: Evaluation of the bowel is limited in the absence of oral contrast. The small bowel loops are normal in caliber. There is moderate amount of stool in the left hemicolon. No bowel dilatation or obstruction APPENDIX: The appendix is not visualized. No inflammatory changes in the right lower quadrant. PERITONEUM: No free fluid. No free air. LYMPH NODES: No enlarged lymph nodes. BLADDER: Decompressed. REPRODUCTIVE: The uterus is anteverted and normal in size. BONES: No acute fracture. Within normal limits for the patient's age. OTHER FINDINGS: None. IMPRESSION: No acute abdominal or pelvic abnormality. Evaluation of the bowel is limited in the absence of oral contrast. Moderate amount of stool in the left hemicolon. No bowel obstruction. Mild hepatomegaly and fatty liver.
[2018-05-04] MEDS ORDERED: Magnesium Sulfate 2 gm/50 ml 2 GM/50 ML BAG IVPB ONE (15:55)
[2018-05-04] MEDS ORDERED: Potassium Chloride 20 mEq ER Tab PO STA (15:56)
[2018-05-04] MEDS: metroNIDAZOLE IV 500 mg/100 ml 500 MG/100 ML BAG IVPB SCH ×2 (16:02→21:16)
[2018-05-04] MEDS ORDERED: Oxycodone/Acetaminophen 5/325 mg Tab PO PRN (16:25)
--- NOTE | 2018-05-04 16:45 | CP.PCM.HP ---
<Gladis Brown - Last Filed: 05/04/18 16:28> History of Present Illness - History of Present Illness History of Present Illness: Gladis Brown, PGY1, H&P for Dr Oh: CC: "blood in stool" 37 year old female with PMH nephrolithiasis, h.pylori, and colitis, presents for blood in stool that started 2 days ago. Pt also reports mild lower abdominal pain with diarrheal episodes. Pt states that for past 3-4 days, she has had 6 watery diarrheal episodes a day. She recent underwent EGD few weeks ago with Dr Alberts, was diagnosed with H pylori, gastritis, finished triple therapy last Friday and started having diarrheal episodes. She went to her GI Dr Lexus and was positive for C diff, finished 2 days of PO flagyl 500 mera tid. On friday, pt started noticing some bright red blood mixed with stool and while wiping on tissue paper. Pt denies prior such episodes, and therefore decided to come to ED. Denies fever, chills, nausea, vomiting, cp, sob, headache, epigastric pain, dizziness, weakness, profusely bleeding through rectum, black tarry stools, leg swelling. Pt reports mild dysuria, denies urinary frequency, hematuria. In ED, pt afebrile, hemodynamically stable. leukopenic 3.6. CT abd pelvis shows stool in the colon, no colitis. Received tylenol 975 mg protonix, roephin and 1L NS bolus in ED. 12 point ROS obtained and negative, except as per HPI. PMD: Demetrice GI: Lexus PMH: nephrolithiasis, colitis Surgical hx: tubal ligation - 2007 , left cyst removal, lithotripsy - 7 months ago Allergies: NKDA Medications: started on metronidazole 500 mg tid since friday; prior finished triple therapy for H pylori. Social hx: smokes 1/2 PPD x7 years, drinks socially - wine every weekend, denies recreational drug use Family Hx: denies inflammatory bowel disease, GI malignancy in family Present on Admission - Present on Admission Any Indicators Present on Admission: No History of DVT/PE: No History of Uncontrolled Diabetes: No Urinary Catheter: No Decubitus Ulcer Present: No Review of Systems - Review of Systems All systems: reviewed and no additional remarkable complaints except Review of Systems: as per HPI Past Patient History - Infectious Disease Hx of Infectious Diseases: None - Tetanus Immunizations Tetanus Immunization: Unknown - Past Social History Smoking Status: Light Smoker < 10 Cigarettes Daily - CARDIAC Hx Cardiac Disorders: No - PULMONARY Hx Respiratory Disorders: No - NEUROLOGICAL Hx Neurological Disorder: Yes Hx Seizures: Yes - HEENT Hx HEENT Problems: No - RENAL Hx Chronic Kidney Disease: Yes Hx Kidney Stones: Yes Other/Comment: Left renal cyst - ENDOCRINE/METABOLIC Hx Endocrine Disorders: No - HEMATOLOGICAL/ONCOLOGICAL Hx Blood Disorders: No - INTEGUMENTARY Hx Dermatological Problems: No - MUSCULOSKELETAL/RHEUMATOLOGICAL Hx Musculoskeletal Disorders: No - GASTROINTESTINAL Hx Gastrointestinal Disorders: Yes Hx Colitis: Yes Hx Hemorrhoids: Yes - GENITOURINARY/GYNECOLOGICAL Hx Genitourinary Disorders: No - PSYCHIATRIC Hx Psychophysiologic Disorder: No Hx Substance Use: No - SURGICAL HISTORY Hx Tubal Ligation: Yes Other/Comment: CYST REMOVED FROM LEFT KIDNEY - ANESTHESIA Hx Anesthesia: Yes Hx Anesthesia Reactions: No Hx Malignant Hyperthermia: No Meds Allergies/Adverse Reactions: Allergies Allergy/AdvReac Type Severity Reaction Status Date / Time No Known Allergies Allergy Verified 05/04/18 20:18 Physical Exam - Constitutional Appears: Non-toxic, No Acute Distress - Head Exam Head Exam: ATRAUMATIC, NORMOCEPHALIC - Eye Exam Eye Exam: EOMI, PERRL. absent: Conjunctival injection, Nystagmus, Scleral icterus Pupil Exam: NORMAL ACCOMODATION, PERRL. absent: Irregular, Miosis, Mydriatic, Unequal - ENT Exam ENT Exam: Mucous Membranes Dry - Neck Exam Neck exam: Positive for: Full Rom - Respiratory Exam Respiratory Exam: Clear to Auscultation Bilateral, NORMAL BREATHING PATTERN. absent: Accessory Muscle Use, Rhonchi, Wheezes, Respiratory Distress, Stridor - Cardiovascular Exam Cardiovascular Exam: RRR, +S1, +S2. absent: Systolic Murmur - GI/Abdominal Exam GI & Abdominal Exam: Normal Bowel Sounds, Soft, Tenderness (+ Mild TTP in lower abdominal areas, more on left). absent: Distended, Firm, Guarding, Mass, Rebound, Rigid - Extremities Exam Extremities exam: Positive for: normal inspection. Negative for: calf tenderness, pedal edema - Back Exam Back exam: NORMAL INSPECTION. absent: CVA tenderness (L), CVA tenderness (R) - Neurological Exam Neurological exam: Alert, Oriented x3 - Psychiatric Exam Psychiatric exam: Normal Affect, Normal Mood - Skin Skin Exam: Dry, Normal Color, Warm Results - Vital Signs Recent Vital Signs: Last Vital Signs Temp 98.0 F 05/04/18 09:36 Pulse 88 05/04/18 13:11 Resp 18 05/04/18 13:11 BP 132/78 05/04/18 13:11 Pulse Ox 98 05/04/18 13:11 - Labs Result Diagrams: 05/04/18 13:17 05/04/18 11:22 Labs: Laboratory Results - last 24 hr 05/04/18 05/04/18 05/04/18 10:06 11:22 11:22 WBC RBC Hgb Hct MCV MCH MCHC RDW Plt Count MPV Gran % Lymph % (Auto) [place] % (Auto) Eos % (Auto) Baso % (Auto) Gran # Lymph # (Auto) [place] # (Auto) Eos # (Auto) Baso # (Auto) PT 11.6 INR 1.01 APTT 24.9 L Sodium 143 Potassium 3.4 L Chloride 107 Carbon Dioxide 25 Anion Gap 14 BUN 11 Creatinine 0.6 L Est GFR ( Amer) > 60 Est GFR (Non-Af Amer) > 60 Random Glucose 93 Calcium 8.8 Magnesium 1.4 L Total Bilirubin 0.5 AST 29 ALT 25 Alkaline Phosphatase 34 L D Total Protein 6.8 Albumin 3.9 Globulin 2.9 Albumin/Globulin Ratio 1.3 Lipase 109 Urine Color Yellow Urine Appearance Turbid Urine pH 6.0 Ur Specific [place] 1.025 Urine Protein Trace H Urine Glucose (UA) Negative Urine Ketones Negative Urine Blood Moderate H Urine Nitrate Positive H Urine Bilirubin Small H Urine Urobilinogen 0.2 Ur Leukocyte Esterase Trace H Urine RBC 0 - 2 Urine WBC 1 - 3 Ur Epithelial Cells Many Urine Bacteria Few Blood Type Antibody Screen BBK History Checked 05/04/18 05/04/18 11:22 13:17 WBC 3.6 L RBC 3.16 L Hgb 10.7 L Hct 30.9 L MCV 97.8 MCH 33.9 MCHC 34.6 RDW 13.6 Plt Count 215 MPV 9.4 Gran % 50.8 Lymph % (Auto) 41.6 H [place] % (Auto) 4.5 Eos % (Auto) 2.5 Baso % (Auto) 0.6 Gran # 1.82 Lymph # (Auto) 1.5 [place] # (Auto) 0.2 Eos # (Auto) 0.1 Baso # (Auto) 0.02 PT INR APTT Sodium Potassium Chloride Carbon Dioxide Anion Gap BUN Creatinine Est GFR ( Amer) Est GFR (Non-Af Amer) Random Glucose Calcium Magnesium Total Bilirubin AST ALT Alkaline Phosphatase Total Protein Albumin Globulin Albumin/Globulin Ratio Lipase Urine Color Urine Appearance Urine pH Ur Specific [place] Urine Protein Urine Glucose (UA) Urine Ketones Urine Blood Urine Nitrate Urine Bilirubin Urine Urobilinogen Ur Leukocyte Esterase Urine RBC Urine WBC Ur Epithelial Cells Urine Bacteria Blood Type A POSITIVE Antibody Screen Negative BBK History Checked Patient has bt Assessment & Plan - Assessment and Plan (Free Text) Assessment: 37 year old male with PMH colitis, nephrolithiasis, presents for bloody diarrhea : Diarrhea: 2/2 failed outpatient C diff - flagyl 500 IV q8, Vanco 125 mg PO qid - Cdiff in ED negative - Recent positive c diff testing outpatient on Friday, [address] Alberts ( GI) office - stool culture, ova and parasite - NS @100 GI bleed: 2/2 c diff vs hemorrhoidal vs polyps vs avms - continue with c diff treatment, as above - CLD - NS@100 - Protonix 40 IV BID - type and screen - stool occult blood - monitor Hgb tomorrow - Consider GI if Hgb drops or symptoms worsen despite treatment Leukopenia: 2/2 likely antibiotic use - pt afebrile, denies being on immunosuppresant therapy - monitor Asymtomatic UTI: - UA pos for infection, but many epithelial cells - pt complains of mild dysuria - will hold off antibiotics - monitor - f/u urine culture PPX: scds (no AC in setting of bleed), protonix Case seen and discussed with Dr Oh. Gladis Brown PGY1 - Date & Time Date: 05/04/18 Time: 16:56 <Berny Oh - Last Filed: 05/05/18 18:08> Results - Vital Signs Recent Vital Signs: Last Vital Signs Temp 98.3 F 05/05/18 06:00 Pulse 64 05/05/18 06:00 Resp 20 05/05/18 06:00 BP 122/90 05/05/18 06:00 Pulse Ox 100 05/05/18 06:00 - Labs Result Diagrams: 05/05/18 08:00 05/05/18 08:30 Labs: Laboratory Results - last 24 hr 05/05/18 05/05/18 05/05/18 08:00 08:00 08:30 WBC 3.5 L RBC 3.42 L Hgb 11.6 L Hct 33.9 L MCV 99.1 MCH 33.9 MCHC 34.2 RDW 13.4 Plt Count 120 MPV 10.6 Gran % 47.7 L Lymph % (Auto) 42.5 H [place] % (Auto) 6.0 Eos % (Auto) 3.2 Baso % (Auto) 0.6 Gran # 1.66 Lymph # (Auto) 1.5 [place] # (Auto) 0.2 Eos # (Auto) 0.1 Baso # (Auto) 0.02 Sodium Potassium Chloride Carbon Dioxide Anion Gap BUN Creatinine Est GFR ( Amer) Est GFR (Non-Af Amer) Random Glucose Calcium Phosphorus Magnesium Iron 118 TIBC 414 % Saturation 29 Ferritin 18.4 Total Bilirubin AST ALT Alkaline Phosphatase Total Protein Albumin Globulin Albumin/Globulin Ratio Vitamin B12 180 L Folate 9.8 05/05/18 08:30 WBC RBC Hgb Hct MCV MCH MCHC RDW Plt Count MPV Gran % Lymph % (Auto) [place] % (Auto) Eos % (Auto) Baso % (Auto) Gran # Lymph # (Auto) [place] # (Auto) Eos # (Auto) Baso # (Auto) Sodium 141 Potassium 3.7 Chloride 110 H Carbon Dioxide 19 L Anion Gap 16 BUN 3 L Creatinine 0.4 L Est GFR ( Amer) > 60 Est GFR (Non-Af Amer) > 60 Random Glucose 109 Calcium 7.9 L Phosphorus 2.6 Magnesium 1.9 Iron TIBC % Saturation Ferritin Total Bilirubin 0.5 AST 31 ALT 25 Alkaline Phosphatase 39 Total Protein 6.5 Albumin 3.6 Globulin 2.8 Albumin/Globulin Ratio 1.3 Vitamin B12 Folate Attending/Attestation - Attestation I have personally seen and examined this patient.: Yes I have fully participated in the care of the patient.: Yes I have reviewed all pertinent clinical information: Yes Notes (Text): 05/05/18 18:06 attending note; Patient seen and examined with resident. Patient is a 37 year old female with PMH nephrolithiasis, h.pylori, recently treated, and c diff colitis is admitted for abdominal pain and diarrhea. patient is currently getting treated for C. difficile with by mouth Flagyl. Diarrhea did not improve. Patient was seen in by GI for evaluation. Started on IV fluids. Started on by mouth vancomycin. Monitor for diarrhea. Hypokalemia; supplement with IV potassium. started on liquid diet. Advance as tolerated. Patient will follow up with GI Dr. Alberts upon discharge. diagnosis; C. difficile colitis History of H. pylori treated
[2018-05-04] MEDS: Sodium Chloride 0.9% 1,000 ML IV SCH (18:06)
[2018-05-04] MEDS: Vancomycin 25 MG/ML PO SCH ×2 (20:15→21:17)
[2018-05-04] MEDS ORDERED: Pneumococcal 23-Valent Vaccine IM ONE (21:23)
[2018-05-05] MEDS ORDERED: Oxycodone/Acetaminophen 5/325 mg Tab PO ONE (02:24)
[2018-05-05] MEDS: Sodium Chloride 0.9% 1,000 ML IV SCH (03:13)
[2018-05-05] MEDS: metroNIDAZOLE IV 500 mg/100 ml 500 MG/100 ML BAG IVPB SCH (05:16)
[2018-05-05 07:59] VITALS: BP 122/90; PULSE 64; RESP 20; TEMP 98.3; O2SAT 100
[2018-05-05 08:30] LABS: BASO # 0.02 K/mm3 (0.0-2.0); BASO % 0.6 % (0.0-3.0); EOS # 0.1 (0.0-0.7); EOS % 3.2 % (1.5-5.0); GRAN # 1.66 (1.4-6.5); GRAN % 47.7 % (50.0-68.0); HEMOGLOBIN 11.6 g/dL (12.0-16.0); LYMPH # 1.5 (1.2-3.4); LYMPH % 42.5 % (22.0-35.0); MEAN CELL VOLUME 99.1 fl (80.0-105.0); MEAN CORPUSCULAR HEMOGLOBIN 33.9 pg (25.0-35.0); MEAN CORPUSCULAR HGB CONC 34.2 g/dl (31.0-37.0); MEAN PLATELET VOLUME 10.6 fl (7.0-11.0); MONO # 0.2 (0.1-0.6); RBC 3.42 10^6/uL (3.5-6.1); RED CELL DISTRIBUTION WIDTH 13.4 % (11.5-14.5); WHITE BLOOD COUNT 3.5 10^3/ul (4.5-11.0)
[2018-05-05 09:06] LABS: ALB/GLOB RATIO 1.3 (1.1-1.8); ALBUMIN 3.6 g/dL (3.0-4.8); ALT/SGPT 25 U/L (7-56); AST/SGOT 31 U/L (14-36); BLOOD UREA NITROGEN 3 mg/dL (7-21); CALCIUM 7.9 mg/dL (8.4-10.5); GFR NON-AFRICAN AMERICAN > 60
[2018-05-05] MEDS: Vancomycin 25 MG/ML PO SCH (09:53)
[2018-05-05] MEDS ORDERED: cefTRIAXone 1 gm 1 GM/100 ML BAG IVPB SCH (10:00)
[2018-05-05 10:26] LABS: IRON 118 ug/dL (45-180)
[2018-05-05 10:28] LABS: TOTAL IRON BINDING CAPACITY 414 ug/dL (265-497)
[2018-05-05 10:30] LABS: % IRON SATURATION 29 % (20-55)
--- NOTE | 2018-05-05 10:42 | CP.PCM.DIS ---
<Gladis Brown - Last Filed: 05/05/18 14:01> Provider - Provider Date of Admission: 05/04/18 15:21 Attending physician: Berny Oh MD Time Spent in preparation of Discharge (in minutes): 60 Diagnosis - Discharge Diagnosis (1) Abdominal pain Status: Acute (2) Clostridium difficile colitis Status: Acute Hospital Course - Lab Results Lab Results: Most Recent Lab Values WBC 3.5 10^3/ul (4.5-11.0) L 05/05/18 08:00 RBC 3.42 10^6/uL (3.5-6.1) L 05/05/18 08:00 Hgb 11.6 g/dL (12.0-16.0) L 05/05/18 08:00 Hct 33.9 % (36.0-48.0) L 05/05/18 08:00 MCV 99.1 fl (80.0-105.0) 05/05/18 08:00 MCH 33.9 pg (25.0-35.0) 05/05/18 08:00 MCHC 34.2 g/dl (31.0-37.0) 05/05/18 08:00 RDW 13.4 % (11.5-14.5) 05/05/18 08:00 Plt Count 120 10^3/uL (120.0-450.0) 05/05/18 08:00 MPV 10.6 fl (7.0-11.0) 05/05/18 08:00 Gran % 47.7 % (50.0-68.0) L 05/05/18 08:00 Lymph % (Auto) 42.5 % (22.0-35.0) H 05/05/18 08:00 [place] % (Auto) 6.0 % (1.0-6.0) 05/05/18 08:00 Eos % (Auto) 3.2 % (1.5-5.0) 05/05/18 08:00 Baso % (Auto) 0.6 % (0.0-3.0) 05/05/18 08:00 Gran # 1.66 (1.4-6.5) 05/05/18 08:00 Lymph # (Auto) 1.5 (1.2-3.4) 05/05/18 08:00 [place] # (Auto) 0.2 (0.1-0.6) 05/05/18 08:00 Eos # (Auto) 0.1 (0.0-0.7) 05/05/18 08:00 Baso # (Auto) 0.02 K/mm3 (0.0-2.0) 05/05/18 08:00 PT 11.6 SECONDS (9.4-12.5) 05/04/18 11:22 INR 1.01 (0.93-1.08) 05/04/18 11:22 APTT 24.9 Seconds (25.1-36.5) L 05/04/18 11:22 Sodium 141 mmol/L (132-148) 05/05/18 08:30 Potassium 3.7 mmol/L (3.6-5.0) 05/05/18 08:30 Chloride 110 mmol/L (98-107) H 05/05/18 08:30 Carbon Dioxide 19 mmol/L (21-33) L 05/05/18 08:30 Anion Gap 16 (10-20) 05/05/18 08:30 BUN 3 mg/dL (7-21) L 05/05/18 08:30 Creatinine 0.4 mg/dl (0.7-1.2) L 05/05/18 08:30 Est GFR ( Amer) > 60 05/05/18 08:30 Est GFR (Non-Af Amer) > 60 05/05/18 08:30 Random Glucose 109 mg/dL (70-110) 05/05/18 08:30 Calcium 7.9 mg/dL (8.4-10.5) L 05/05/18 08:30 Phosphorus 2.6 mg/dL (2.5-4.5) 05/05/18 08:30 Magnesium 1.9 mg/dL (1.7-2.2) 05/05/18 08:30 Iron 118 ug/dL (45-180) 05/05/18 08:30 TIBC 414 ug/dL (265-497) 05/05/18 08:30 % Saturation 29 % (20-55) 05/05/18 08:30 Total Bilirubin 0.5 mg/dL (0.2-1.3) 05/05/18 08:30 AST 31 U/L (14-36) 05/05/18 08:30 ALT 25 U/L (7-56) 05/05/18 08:30 Alkaline Phosphatase 39 U/L (38-126) 05/05/18 08:30 Total Protein 6.5 g/dL (5.8-8.3) 05/05/18 08:30 Albumin 3.6 g/dL (3.0-4.8) 05/05/18 08:30 Globulin 2.8 gm/dL 05/05/18 08:30 Albumin/Globulin Ratio 1.3 (1.1-1.8) 05/05/18 08:30 Lipase 109 U/L (23-300) 05/04/18 11:22 Urine Color Yellow (YELLOW) 05/04/18 10:06 Urine Appearance Turbid (CLEAR) 05/04/18 10:06 Urine pH 6.0 (4.7-8.0) 05/04/18 10:06 Ur Specific [place] 1.025 (1.005-1.035) 05/04/18 10:06 Urine Protein Trace mg/dL (<30 mg/dL) H 05/04/18 10:06 Urine Glucose (UA) Negative mg/dL (NEGATIVE) 05/04/18 10:06 Urine Ketones Negative mg/dL (NEGATIVE) 05/04/18 10:06 Urine Blood Moderate (NEGATIVE) H 05/04/18 10:06 Urine Nitrate Positive (NEGATIVE) H 05/04/18 10:06 Urine Bilirubin Small (NEGATIVE) H 05/04/18 10:06 Urine Urobilinogen 0.2 E.U./dL (<1 E.U./dL) 05/04/18 10:06 Ur Leukocyte Esterase Trace [place]/uL (NEGATIVE) H 05/04/18 10:06 Urine RBC 0 - 2 /hpf (0-2) 05/04/18 10:06 Urine WBC 1 - 3 /hpf (0-6) 05/04/18 10:06 Ur Epithelial Cells Many /hpf (0-5) 05/04/18 10:06 Urine Bacteria Few (NEG) 05/04/18 10:06 Blood Type A POSITIVE 05/04/18 11:22 Antibody Screen Negative 05/04/18 11:22 BBK History Checked Patient has bt 05/04/18 11:22 - Hospital Course Hospital Course: 37 year old female with PMH nephrolithiasis, h.pylori, and colitis, presents for blood in stool that started 2 days ago. Pt also reports mild lower abdominal pain with diarrheal episodes. Pt states that for past 3-4 days, she has had 6 watery diarrheal episodes a day. She recent underwent EGD few weeks ago with Dr Alberts, was diagnosed with H pylori, gastritis, finished triple therapy last Friday and started having diarrheal episodes. She went to her GI Dr Alberts and was positive for C diff, finished 2 days of PO flagyl 500 mera tid. On friday, pt started noticing some bright red blood mixed with stool and while wiping on tissue paper. CT abd pelvis shows stool in the colon, no colitis. Pt started on IV Flagyl and PO vanco. C diff testing negative. Today's patients diarrhea is improved, with pasty stool today with fewer episodes, patient discharged home with PO vancomycin for 10 days. Pt's hemoglobin stable through the hospital stay. Pt will follow up with GI Dr Alberts (on 05/18) and PMD Demetrice in 1 week. Case seen and discussed with Dr Oh. Gladis Brown, PGY1 Discharge Exam - Head Exam Head Exam: ATRAUMATIC, NORMOCEPHALIC - Eye Exam Eye Exam: EOMI, PERRL. absent: Conjunctival injection, Nystagmus, Scleral icterus Pupil Exam: NORMAL ACCOMODATION, PERRL. absent: Irregular, Miosis, Unequal - ENT Exam ENT Exam: Mucous Membranes Moist - Neck Exam Neck exam: Full Rom - Respiratory Exam Respiratory Exam: Clear to PA & Lateral, NORMAL BREATHING PATTERN. absent: Chest Wall Tenderness, Rales, Rhonchi, Respiratory Distress, Stridor - Cardiovascular Exam Cardiovascular Exam: RRR, +S1, +S2. absent: Systolic Murmur - GI/Abdominal Exam GI & Abdominal Exam: Normal Bowel Sounds, Soft. absent: Distended, Firm, Guarding, Organomegaly, Rebound, Rigid, Tenderness - Extremities Exam Extremities exam: normal inspection - Back Exam Back exam: NORMAL INSPECTION - Neurological Exam Neurological exam: Alert, Oriented x3 - Psychiatric Exam Psychiatric exam: Normal Affect, Normal Mood - Skin Skin Exam: Dry, Normal Color, Warm Discharge Plan - Discharge Medications Prescriptions: Vancomycin [Vancocin (ORAL OR RECTAL USE)] 125 mg PO QID #40 soln - Follow Up Plan Condition: STABLE Disposition: HOME/ ROUTINE Instructions: Epilepsy in Adults, Acute Abdomen (Belly Pain), Adult (DC), Clostridium difficile (DC), Acute Abdominal Pain (DC) Additional Instructions: - Please take vancomycin 4x a day for 10 days. - Take protonix - follow up with GI doctor Lexus on 05/18, as scheduled - follow up with PMD Dr Suresh in 1 week - Return to ER for any concerns. Referrals: Arvind Alberts MD [IM] - Gage Suresh MD [Non-Staff] - <Berny Oh - Last Filed: 05/05/18 18:10> Provider - Provider Date of Admission: 05/04/18 15:21 Attending physician: Berny Oh MD Hospital Course - Lab Results Lab Results: Most Recent Lab Values WBC 3.5 10^3/ul (4.5-11.0) L 05/05/18 08:00 RBC 3.42 10^6/uL (3.5-6.1) L 05/05/18 08:00 Hgb 11.6 g/dL (12.0-16.0) L 05/05/18 08:00 Hct 33.9 % (36.0-48.0) L 05/05/18 08:00 MCV 99.1 fl (80.0-105.0) 05/05/18 08:00 MCH 33.9 pg (25.0-35.0) 05/05/18 08:00 MCHC 34.2 g/dl (31.0-37.0) 05/05/18 08:00 RDW 13.4 % (11.5-14.5) 05/05/18 08:00 Plt Count 120 10^3/uL (120.0-450.0) 05/05/18 08:00 MPV 10.6 fl (7.0-11.0) 05/05/18 08:00 Gran % 47.7 % (50.0-68.0) L 05/05/18 08:00 Lymph % (Auto) 42.5 % (22.0-35.0) H 05/05/18 08:00 [place] % (Auto) 6.0 % (1.0-6.0) 05/05/18 08:00 Eos % (Auto) 3.2 % (1.5-5.0) 05/05/18 08:00 Baso % (Auto) 0.6 % (0.0-3.0) 05/05/18 08:00 Gran # 1.66 (1.4-6.5) 05/05/18 08:00 Lymph # (Auto) 1.5 (1.2-3.4) 05/05/18 08:00 [place] # (Auto) 0.2 (0.1-0.6) 05/05/18 08:00 Eos # (Auto) 0.1 (0.0-0.7) 05/05/18 08:00 Baso # (Auto) 0.02 K/mm3 (0.0-2.0) 05/05/18 08:00 PT 11.6 SECONDS (9.4-12.5) 05/04/18 11:22 INR 1.01 (0.93-1.08) 05/04/18 11:22 APTT 24.9 Seconds (25.1-36.5) L 05/04/18 11:22 Sodium 141 mmol/L (132-148) 05/05/18 08:30 Potassium 3.7 mmol/L (3.6-5.0) 05/05/18 08:30 Chloride 110 mmol/L (98-107) H 05/05/18 08:30 Carbon Dioxide 19 mmol/L (21-33) L 05/05/18 08:30 Anion Gap 16 (10-20) 05/05/18 08:30 BUN 3 mg/dL (7-21) L 05/05/18 08:30 Creatinine 0.4 mg/dl (0.7-1.2) L 05/05/18 08:30 Est GFR ( Amer) > 60 05/05/18 08:30 Est GFR (Non-Af Amer) > 60 05/05/18 08:30 Random Glucose 109 mg/dL (70-110) 05/05/18 08:30 Calcium 7.9 mg/dL (8.4-10.5) L 05/05/18 08:30 Phosphorus 2.6 mg/dL (2.5-4.5) 05/05/18 08:30 Magnesium 1.9 mg/dL (1.7-2.2) 05/05/18 08:30 Iron 118 ug/dL (45-180) 05/05/18 08:30 TIBC 414 ug/dL (265-497) 05/05/18 08:30 % Saturation 29 % (20-55) 05/05/18 08:30 Ferritin 18.4 ng/mL 05/05/18 08:00 Total Bilirubin 0.5 mg/dL (0.2-1.3) 05/05/18 08:30 AST 31 U/L (14-36) 05/05/18 08:30 ALT 25 U/L (7-56) 05/05/18 08:30 Alkaline Phosphatase 39 U/L (38-126) 05/05/18 08:30 Total Protein 6.5 g/dL (5.8-8.3) 05/05/18 08:30 Albumin 3.6 g/dL (3.0-4.8) 05/05/18 08:30 Globulin 2.8 gm/dL 05/05/18 08:30 Albumin/Globulin Ratio 1.3 (1.1-1.8) 05/05/18 08:30 Lipase 109 U/L (23-300) 05/04/18 11:22 Vitamin B12 180 pg/mL (239-931) L 05/05/18 08:00 Folate 9.8 ng/mL 05/05/18 08:00 Urine Color Yellow (YELLOW) 05/04/18 10:06 Urine Appearance Turbid (CLEAR) 05/04/18 10:06 Urine pH 6.0 (4.7-8.0) 05/04/18 10:06 Ur Specific [place] 1.025 (1.005-1.035) 05/04/18 10:06 Urine Protein Trace mg/dL (<30 mg/dL) H 05/04/18 10:06 Urine Glucose (UA) Negative mg/dL (NEGATIVE) 05/04/18 10:06 Urine Ketones Negative mg/dL (NEGATIVE) 05/04/18 10:06 Urine Blood Moderate (NEGATIVE) H 05/04/18 10:06 Urine Nitrate Positive (NEGATIVE) H 05/04/18 10:06 Urine Bilirubin Small (NEGATIVE) H 05/04/18 10:06 Urine Urobilinogen 0.2 E.U./dL (<1 E.U./dL) 05/04/18 10:06 Ur Leukocyte Esterase Trace [place]/uL (NEGATIVE) H 05/04/18 10:06 Urine RBC 0 - 2 /hpf (0-2) 05/04/18 10:06 Urine WBC 1 - 3 /hpf (0-6) 05/04/18 10:06 Ur Epithelial Cells Many /hpf (0-5) 05/04/18 10:06 Urine Bacteria Few (NEG) 05/04/18 10:06 Blood Type A POSITIVE 05/04/18 11:22 Antibody Screen Negative 05/04/18 11:22 BBK History Checked Patient has bt 05/04/18 11:22 Attending/Attestation - Attestation I have personally seen and examined this patient.: Yes I have fully participated in the care of the patient.: Yes I have reviewed all pertinent clinical information, including history, physical exam and plan: Yes Notes (Text): 05/05/18 18:08 attending note; Patient seen and examined with resident. Patient is a 37 year old female with PMH nephrolithiasis, h.pylori, recently treated, and c diff colitis is admitted for abdominal pain and diarrhea. diarrhea is improved. Abdominal pain is resolving. Advance diet. magnesium and potassium level is normal. Repeat stool for C. difficile is negative. discharge home today. Patient will follow up with GI Dr. Alberts upon discharge. diagnosis; C. difficile colitis History of H. pylori treated
[2018-05-05 17:06] LABS: FERRITIN 18.4 ng/mL
[2018-05-05 17:37] LABS: FOLATE 9.8 ng/mL
[2018-05-21] MEDS ORDERED: Adenosine 90 mg/30mL IV ONE (08:26)
== END 2018-05-05 14:09 | disposition home or self-care (01) | DRG 895 ==
LOC: ED 09:35 → ERH 15:21 → 5RNO 17:28
PROVIDERS: ADMIT Internal Medicine; ATTEND Internal Medicine
DX: A04.72 Enterocolitis due to Clostridium difficile, not specified as recurrent (principal); N18.9 Chronic kidney disease, unspecified; N39.0 Urinary tract infection, site not specified; K29.70 Gastritis, unspecified, without bleeding; K76.0 Fatty (change of) liver, not elsewhere classified; F17.210 Nicotine dependence, cigarettes, uncomplicated; D72.819 Decreased white blood cell count, unspecified; Z86.19 Personal history of other infectious and parasitic diseases; Z87.442 Personal history of urinary calculi

== ENCOUNTER 2018-07-06 12:20 | Emergency (ER) | payer MEDICAID ==
[2018-07-06 12:21] VITALS: BMI 21.2
[2018-07-06 12:58] VITALS: TEMP 98.9; O2SAT 99
--- NOTE | 2018-07-06 13:00 | ED PDOC ---
Arrival/HPI - General Chief Complaint: GI Problem Time Seen by Provider: 07/06/18 12:25 - History of Present Illness Narrative History of Present Illness (Text): 07/06/18 13:00 A 38 year old female, whose past medical history includes H. Pylori infection, presents to the emergency department complaining of stomach pain since 3 days ago. Patient reports increased urinary frequency in the past 2 days, describes her urine as thick. Patient states she is experiencing associated back pain and headache with vision changes. Patient states her rectum is sore and she was unable to eat this morning. Patient notes her LNMP was on 06/14/18. Patient denies any fever, shortness of breath, chest pain, diarrhea, nausea, vomiting, urinary symptoms, neck pain, dizziness, or any other complaints. PMD: Dr. Suresh GI: Dr. Alberts Time/Duration: < week (3 days ) Symptom Onset: Gradual Symptom Course: Unchanged Activities at Onset: Light Context: Home Past Medical History - Provider Review Nursing Documentation Reviewed: Yes - Past History Past History: Non-Contributing - Infectious Disease Hx of Infectious Diseases: None - Tetanus Immunization Tetanus Immunization: Unknown - Reproductive Menopause: No - Past Medical History Past Medical History: No Previous - Cardiac Hx Cardiac Disorders: No - Pulmonary Hx Respiratory Disorders: Yes (SMOKES CIGARETTES) - Neurological Hx Neurological Disorder: Yes Hx Dizziness: Yes Hx Seizures: Yes - HEENT Hx HEENT Disorder: No - Renal Hx Renal Disorder: Yes Hx Kidney Stones: Yes (LITHOTRYPSY) Other/Comment: Left renal cyst - Endocrine/Metabolic Hx Endocrine Disorders: No - Hematological/Oncological Hx Blood Disorders: No - Integumentary Hx Dermatological Disorder: No - Musculoskeletal/Rheumatological Hx Musculoskeletal Disorders: Yes Hx Back Pain: Yes Hx Falls: Yes Hx Fractures: Yes (NOSE) - Gastrointestinal Hx Gastrointestinal Disorders: Yes (H PYLORI,C DIFF,GI BLEED,BLOODY STOOLS,, GASTRITIS) - Genitourinary/Gynecological Hx Genitourinary Disorders: Yes Hx Urinary Tract Infection: Yes - Psychiatric Hx Psychophysiologic Disorder: No Hx Substance Use: No - Surgical History Other/Comment: CYST REMOVED FROM LEFT KIDNEY - Anesthesia Hx Anesthesia: Yes Hx Anesthesia Reactions: No Hx Malignant Hyperthermia: No - Suicidal Assessment Feels Threatened In Home Enviroment: No Family/Social History - Physician Review Nursing Documentation Reviewed: Yes Family/Social History: Unknown Family HX Smoking Status: Current Some Days Smoker Hx Alcohol Use: Yes (SOCIAL,WEEKENDS) Hx Substance Use: No Hx Substance Use Treatment: Yes Allergies/Home Meds Allergies/Adverse Reactions: Allergies No Known Allergies Allergy (Verified 05/04/18 20:18) Review of Systems - Physician Review All systems were reviewed & negative as marked: Yes - Review of Systems Constitutional: absent: Fevers, Night Sweats Respiratory: absent: SOB Cardiovascular: absent: Chest Pain Gastrointestinal: Nausea. absent: Diarrhea, Vomiting Genitourinary Female: absent: Dysuria, Hematuria, Urine Output Changes, Vaginal Bleeding, Vaginal Discharge Musculoskeletal: Back Pain. absent: Neck Pain Neurological: Headache. absent: Dizziness Physical Exam Vital Signs Reviewed: Yes Vital Signs Temp Pulse Resp BP Pulse Ox 07/06/18 12:51 98.9 F 98 H 16 119/80 99 Temperature: Afebrile Blood Pressure: Normal Pulse: Tachycardic Respiratory Rate: Normal Appearance: Positive for: Well-Appearing, Non-Toxic, Comfortable Pain Distress: None Mental Status: Positive for: Alert and Oriented X 3 - Systems Exam Head: Present: Atraumatic, Normocephalic Pupils: Present: PERRL Extroacular Muscles: Present: EOMI Conjunctiva: Present: Normal Mouth: Present: Moist Mucous Membranes Neck: Present: Normal Range of Motion Respiratory/Chest: Present: Clear to Auscultation, Good Air Exchange. No: Respiratory Distress, Accessory Muscle Use Cardiovascular: Present: Regular Rate and Rhythm, Normal S1, S2. No: Murmurs Abdomen: Present: Tenderness (+left lower quadrant tenderness). No: Distention , Normal Bowel Sounds, Peritoneal Signs, Rebound, Guarding, McBurney's Point Tender, Rovsing's Sign Present, Hernias, Feeding Tubes, Ostomy Tubes, Mass/ Organomegaly, Scars Genitourinary/Pelvic Exam: No: Vaginal Discharge, Vaginal Bleeding Back: Present: CVA Tenderness (+left sided CVA tenderness). No: Normal Inspection, Midline Tenderness, Paraspinal Tenderness, Pain with Leg Raise, Decubitus Ulcer Upper Extremity: Present: Normal Inspection. No: Cyanosis, Edema Lower Extremity: Present: Normal Inspection. No: Edema Neurological: Present: GCS=15, CN II-XII Intact, Speech Normal Skin: Present: Warm, Dry, Normal Color. No: Rashes Psychiatric: Present: Alert, Oriented x 3, Normal Insight, Normal Concentration Medical Decision Making ED Course and Treatment: 07/06/18 13:10 Impression: 38 year old female presenting to the Emergency department complaining of stomach pain. Differential Diagnosis included but are not limited to: - Colitis - Pancreatitis - H. Pylori infection Plan: -- CT of Abdomen & pelvis IV contrast only -- CMP -- Lipase -- CBC -- ESR -- Chest X-ray -- Urine culture -- POC Urine test -- Urinalysis -- Reassess and disposition Prior Visits: Notes and results from previous visits were reviewed. Progress Notes: 07/06/18 14:38 Dictator: Freeman Ramirez MD Procedure: Chest X-ray Impression: No active disease. PROCEDURE: CT Abdomen and Pelvis with contrast Dictator : Shayna Riojas MD Report Date : 07/06/2018 15:56:14 IMPRESSION: Mildly dilated small bowel loops demonstrate mild enhancing wall thickening. Correlate clinically for enteritis. No evidence of colitis. No evidence of diverticulosis or diverticulitis. Heterogeneous mildly enlarged uterus. Suspicious for 3 millimeter nonobstructing calculus at the midpole of the right kidney. Stable partially calcified defect in the upper pole of the left kidney. No evidence of hydronephrosis or hydroureter. 07/06/18 16:50 On re-evaluation the patient feels better and is in no acute distress. I have discussed the results and plan with the patient, who expresses understanding. Patient given the opportunity to ask question, all questions were answered and there is agreement with the plan to discharge the patient home with prescription for Zofran. Patient is stable for discharge. Patient was instructed to follow up with GI in 1-2 days or return if symptoms persist/ worsen or new concerning symptoms arise (which include, but are not limited to, persistent vomiting, fever, and abdominal pain). - Lab Interpretations Lab Results: 07/06/18 14:06 07/06/18 14:06 Lab Results 07/06/18 14:06: Sodium 144, Potassium 4.5, Chloride 109 H, Carbon Dioxide 22, Anion Gap 17, BUN 12, Creatinine 0.6 L, Est GFR ( Amer) > 60, Est GFR ( Non-Af Amer) > 60, Random Glucose 84, Calcium 9.5, Total Bilirubin 0.7, AST 33, ALT 28, Alkaline Phosphatase 51, Total Protein 7.7, Albumin 4.6, Globulin 3.2, Albumin/Globulin Ratio 1.4, Lipase 106 07/06/18 14:06: WBC 5.3 D, RBC 3.85, Hgb 13.2, Hct 37.7, MCV 97.9, MCH 34.3, MCHC 35.0, RDW 13.3, Plt Count 233, MPV 9.6, Gran % 52.4, Lymph % (Auto) 36.3 H , Peach % (Auto) 9.0 H, Eos % (Auto) 1.7, Baso % (Auto) 0.6, Gran # 2.78, Lymph # (Auto) 1.9, Peach # (Auto) 0.5, Eos # (Auto) 0.1, Baso # (Auto) 0.03, ESR 5 07/06/18 13:40: Urine Color Yellow, Urine Appearance Turbid, Urine pH 6.0, Ur Specific [place] >= 1.030, Urine Protein 30 H, Urine Glucose (UA) Negative, Urine Ketones Trace H, Urine Blood Large H, Urine Nitrate Negative, Urine Bilirubin Negative, Urine Urobilinogen 0.2, Ur Leukocyte Esterase Negative, Urine RBC 25 - 30, Urine WBC 0 - 2, Ur Epithelial Cells Many, Urine Bacteria Few - RAD Interpretation Radiology Orders: 07/06/18 13:09 CHEST PORTABLE [RAD] Stat 07/06/18 13:10 ABDOMEN & PELVIS [ABD & PELVIS IV CONTRAST ONLY] [CT] Stat - Medication Orders Current Medication Orders: Discontinued Medications Sodium Chloride (Sodium Chloride 0.9%) 1,000 mls @ 999 mls/hr IV .Q1H1M STA Stop: 07/06/18 14:11 Last Admin: 07/06/18 14:06 Dose: 999 mls/hr eMAR Start Stop Document 07/06/18 14:06 VT (Rec: 07/06/18 14:11 VT [id number]) Intravenous Solution Start Date 07/06/18 Start Time 14:06 Metoclopramide HCl (Reglan) 10 mg IVP STAT STA Stop: 07/06/18 13:24 Last Admin: 07/06/18 14:06 Dose: 10 mg IVP Administration Document 07/06/18 14:06 VT (Rec: 07/06/18 14:12 [id number]) Charges for Administration # of IVP Administrations 1 Morphine Sulfate (Morphine) 2 mg IVP STAT STA Stop: 07/06/18 13:12 Last Admin: 07/06/18 14:06 Dose: 2 mg MAR Pain Assessment Document 07/06/18 14:06 VT (Rec: 07/06/18 14:12 [id number]) Pain Reassessment Is this a pain reassessment? No Sleep Is patient sleeping during reassessment? No Presence of Pain Presence of Pain Yes Location Pain Location Body Site Abdomen Description Intensity of Pain at present 8 Acceptable Level of Pain 0 IVP Administration Document 07/06/18 14:06 HI (Rec: 07/06/18 14:12 [id number]) Charges for Administration # of IVP Administrations 1 - Scribe Statement The provider has reviewed the documentation as recorded by the Scribe Elizabeth Arroyo All medical record entries made by the Scribe were at my direction and personally dictated by me. I have reviewed the chart and agree that the record accurately reflects my personal performance of the history, physical exam, medical decision making, and the department course for this patient. I have also personally directed, reviewed, and agree with the discharge instructions and disposition. Disposition/Present on Arrival - Present on Arrival Any Indicators Present on Arrival: No History of DVT/PE: No History of Uncontrolled Diabetes: No Urinary Catheter: No History of Decub. Ulcer: No History Surgical Site Infection Following: None - Disposition Have Diagnosis and Disposition been Completed?: Yes Diagnosis: Gastroenteritis Disposition: HOME/ ROUTINE Disposition Time: 16:47 Patient Plan: Discharge Patient Problems: Current Active Problems Problem Status Onset Gastroenteritis Acute Condition: IMPROVED Discharge Instructions (ExitCare): Gastroenteritis (ED) Prescriptions: Ondansetron ODT [Zofran ODT] 4 mg PO Q6H 2 Days #4 odt Referrals: Arvind Alberts MD [IM] - Follow up with primary Forms: [employer] (Persian), WORK NOTE
[2018-07-06] MEDS ORDERED: Sodium Chloride 0.9% 1,000 ML IV STA (13:11)
[2018-07-06] MEDS ORDERED: Morphine 2 mg/ml ISec IVP STA (13:11)
[2018-07-06 13:55] LABS: URINE BILIRUBIN NEGATIVE (NEGATIVE); URINE BLOOD LARGE (NEGATIVE); URINE GLUCOSE (UA) NEGATIVE (NEGATIVE); URINE LEUKOCYTE ESTERASE NEGATIVE Leu/uL (NEGATIVE); URINE PROTEIN 30 mg/dL (<30 mg/dL); URINE UROBILINOGEN 0.2 E.U./dL (<1 E.U./dL)
[2018-07-06 13:57] LABS: URINE APPEARANCE TURBID (CLEAR); URINE COLOR YELLOW (YELLOW)
[2018-07-06 14:00] LABS: URINE BACTERIA FEW (NEG); URINE EPITHELIAL CELLS MANY /hpf (0-5); URINE RBC 25 - 30 /hpf (0-2); URINE WBC 0 - 2 /hpf (0-6)
[2018-07-06 14:18] LABS: BASO # 0.03 K/mm3 (0.0-2.0); BASO % 0.6 % (0.0-3.0); EOS # 0.1 (0.0-0.7); EOS % 1.7 % (1.5-5.0); GRAN # 2.78 (1.4-6.5); GRAN % 52.4 % (50.0-68.0); HEMOGLOBIN 13.2 g/dL (12.0-16.0); LYMPH # 1.9 (1.2-3.4); LYMPH % 36.3 % (22.0-35.0); MEAN CELL VOLUME 97.9 fl (80.0-105.0); MEAN CORPUSCULAR HEMOGLOBIN 34.3 pg (25.0-35.0); MEAN PLATELET VOLUME 9.6 fl (7.0-11.0); MONO # 0.5 (0.1-0.6); RBC 3.85 10^6/uL (3.5-6.1); RED CELL DISTRIBUTION WIDTH 13.3 % (11.5-14.5); WHITE BLOOD COUNT 5.3 10^3/ul (4.5-11.0)
--- NOTE | 2018-07-06 14:25 | RAD ---
Date of service: 07/06/2018 HISTORY: sob COMPARISON: 03/13/2017 FINDINGS: LUNGS: No active pulmonary disease. PLEURA: No significant pleural effusion identified, no pneumothorax apparent. CARDIOVASCULAR: Normal. OSSEOUS STRUCTURES: No significant abnormalities. VISUALIZED UPPER ABDOMEN: Normal. OTHER FINDINGS: None. IMPRESSION: No active disease.
[2018-07-06 14:27] LABS: ALB/GLOB RATIO 1.4 (1.1-1.8); ALBUMIN 4.6 g/dL (3.0-4.8); ALT/SGPT 28 U/L (7-56); AST/SGOT 33 U/L (14-36); BLOOD UREA NITROGEN 12 mg/dL (7-21); CALCIUM 9.5 mg/dL (8.4-10.5); GFR NON-AFRICAN AMERICAN > 60; LIPASE 106 U/L (23-300)
--- NOTE | 2018-07-06 15:57 | CT ---
Date of service: 07/06/2018 PROCEDURE: CT Abdomen and Pelvis with contrast HISTORY: LLQ and L CVA tenderness COMPARISON: Comparison is made to the previous study dated 05/04/2018 TECHNIQUE: Contrast dose: 150 mL of Omnipaque 350 intravenously. Axial and reformatted coronal and sagittal CT images of the abdomen and pelvis were obtained after IV contrast administration. Radiation dose: Total exam DLP = 291.4 mGy-cm. This CT exam was performed using one or more of the following dose reduction techniques: Automated exposure control, adjustment of the mA and/or kV according to patient size, and/or use of iterative reconstruction technique. FINDINGS: LOWER THORAX: Unremarkable. LIVER: Unremarkable. No gross lesion or ductal dilatation. GALLBLADDER AND BILE DUCTS: Unremarkable. PANCREAS: Unremarkable. No gross lesion or ductal dilatation. SPLEEN: Unremarkable. ADRENALS: Unremarkable. No mass. KIDNEYS AND URETERS: Again noted is focal defect in the upper pole of the left renal cortex contains foci of calcification. There is suspicious for 2-3 millimeter nonobstructing calculus at the midpole of the right kidney. The kidneys enhance symmetrically without evidence of hydronephrosis. VASCULATURE: Unremarkable. No aortic aneurysm. BOWEL: Mildly dilated small bowel loops demonstrate mild enhancing wall thickening. The possibility of enteritis should be considered. No CT evidence of colitis. No evidence of bowel obstruction. No evidence of pneumatosis or mass lesion in the large bowel. APPENDIX: No definite evidence of appendicitis. PERITONEUM: Unremarkable. No free fluid. No free air. LYMPH NODES: Unremarkable. No enlarged lymph nodes. BLADDER: Unremarkable. REPRODUCTIVE: Heterogeneous mildly enlarged uterus is noted. BONES: No acute fracture. OTHER FINDINGS: None. IMPRESSION: Mildly dilated small bowel loops demonstrate mild enhancing wall thickening. Correlate clinically for enteritis. No evidence of colitis. No evidence of diverticulosis or diverticulitis. Heterogeneous mildly enlarged uterus. Suspicious for 3 millimeter nonobstructing calculus at the midpole of the right kidney. Stable partially calcified defect in the upper pole of the left kidney. No evidence of hydronephrosis or hydroureter.
[2018-07-06 16:57] VITALS: RESP 18
[2018-07-06 16:58] VITALS: BP 122/82; PULSE 72
== END 2018-07-06 16:58 | disposition home or self-care (01) ==
LOC: ED 12:20
DX: K52.9 Noninfective gastroenteritis and colitis, unspecified (principal)
CPT/HCPCS: 71045; 74177; 80053; 81001; 83690; 85025; 85651; 87086; 96374; 96375; 99285; J2270; J2765; J7030; Q9967

== ENCOUNTER 2018-10-09 23:07 | Emergency (ER) | payer MEDICAID ==
[2018-10-09 23:08] VITALS: BMI 21.2
[2018-10-10] VITALS: RESP 18
[2018-10-10] MEDS ORDERED: Sodium Chloride 0.9% 1,000 ML IV STA
--- NOTE | 2018-10-10 | ED PDOC ---
Arrival/HPI - General Chief Complaint: Back Pain Historian: Patient - History of Present Illness Narrative History of Present Illness (Text): 10/09/18 23:56 38 y/o female, no significant pmh, nkda, c/o lt. flank pain x 1 week. Lt. flank pain, sharp, aggravated by movement, concerning she has UTI and renal stone, no night sweat, started ciprofloxacin by her own pmd today, no nausea or vomiting, no fever or chills, no rash, no other medical or psychological complaints. Past Medical History - Provider Review Nursing Documentation Reviewed: Yes - Past History Past History: Non-Contributing - Infectious Disease Hx of Infectious Diseases: None - Tetanus Immunization Tetanus Immunization: Unknown - Past Medical History Past Medical History: No Previous - Cardiac Hx Cardiac Disorders: No - Pulmonary Hx Respiratory Disorders: Yes (SMOKES CIGARETTES) - Neurological Hx Neurological Disorder: Yes Hx Dizziness: Yes Hx Seizures: Yes - HEENT Hx HEENT Disorder: No - Renal Hx Renal Disorder: Yes Hx Kidney Stones: Yes (LITHOTRYPSY) Other/Comment: Left renal cyst - Endocrine/Metabolic Hx Endocrine Disorders: No - Hematological/Oncological Hx Blood Disorders: No - Integumentary Hx Dermatological Disorder: No - Musculoskeletal/Rheumatological Hx Musculoskeletal Disorders: Yes Hx Back Pain: Yes Hx Falls: Yes Hx Fractures: Yes (NOSE) - Gastrointestinal Hx Gastrointestinal Disorders: Yes (H PYLORI,C DIFF,GI BLEED,BLOODY STOOLS,,GASTRITIS) - Genitourinary/Gynecological Hx Genitourinary Disorders: Yes Hx Urinary Tract Infection: Yes - Psychiatric Hx Psychophysiologic Disorder: No Hx Substance Use: No - Surgical History Hx Tubal Ligation: Yes Other/Comment: CYST REMOVED FROM LEFT KIDNEY - Anesthesia Hx Anesthesia: Yes Hx Anesthesia Reactions: No Hx Malignant Hyperthermia: No - Suicidal Assessment Feels Threatened In Home Enviroment: No Family/Social History - Physician Review Nursing Documentation Reviewed: Yes Family/Social History: Unknown Family HX Smoking Status: Heavy Smoker > 10 Cigarettes Daily Hx Alcohol Use: Yes (SOCIAL,WEEKENDS) Hx Substance Use: No Hx Substance Use Treatment: Yes Allergies/Home Meds Allergies/Adverse Reactions: Allergies No Known Allergies Allergy (Verified 10/09/18 23:51) Home Medications: Home Meds Medication Instructions Recorded Confirmed Ciprofloxacin [Cipro] 250 mg PO 10/09/18 Review of Systems - Review of Systems Constitutional: absent: Fatigue, Fevers Eyes: absent: Vision Changes ENT: absent: Hearing Changes Respiratory: absent: SOB, Cough Cardiovascular: absent: Chest Pain Gastrointestinal: absent: Abdominal Pain, Nausea, Vomiting Musculoskeletal: Back Pain (lt. cva) Skin: absent: Rash, Pruritis Neurological: absent: Headache, Dizziness Psychiatric: absent: Anxiety, Depression, Suicidal Ideation Physical Exam Vital Signs Reviewed: Yes Temperature: Afebrile Blood Pressure: Normal Pulse: Regular Respiratory Rate: Normal Appearance: Positive for: Well-Appearing, Non-Toxic Pain Distress: Severe Mental Status: Positive for: Alert and Oriented X 3 - Systems Exam Head: Present: Atraumatic, Normocephalic Pupils: Present: PERRL Extroacular Muscles: Present: EOMI Conjunctiva: Present: Normal Mouth: Present: Moist Mucous Membranes Neck: Present: Normal Range of Motion Respiratory/Chest: Present: Clear to Auscultation, Good Air Exchange. No: Respiratory Distress, Accessory Muscle Use Cardiovascular: Present: Regular Rate and Rhythm, Normal S1, S2. No: Murmurs Abdomen: No: Tenderness, Distention, Peritoneal Signs, Rebound, Guarding Back: Present: Normal Inspection, CVA Tenderness (Left). No: Midline Tenderness, Paraspinal Tenderness, Pain with Leg Raise, Decubitus Ulcer Upper Extremity: Present: Normal Inspection. No: Cyanosis, Edema Lower Extremity: Present: Normal Inspection. No: Edema Neurological: Present: GCS=15, CN II-XII Intact, Speech Normal Skin: Present: Warm, Dry, Normal Color. No: Rashes Psychiatric: Present: Alert, Oriented x 3, Normal Insight, Normal Concentration Medical Decision Making ED Course and Treatment: 10/10/18 00:03 -Labs -CT abdomen and pelvis -IVF/toradol -Observe and reassess 10/10/18 01:35 -Urine hcg is negative -Labs show no acute findings except mg 1.5 (Mgsulate 1gm ordered). -Lipase is negative -Trop is negative after 24 hours -UA show mild UTI, she on ciprofloxacin -CT abdomen and pelvis show Benign chronic left cortical scarring. Bilateral nonobstructing renal stones. There is noted to have stool in the colon, pt. admits constipation, magnesium citrate ordered -Pt. feels well, no pain now after medication, eating and drinking well. -Discharge home with motrin, magnesium citrate, continue your antibiotic by your own pmd, follow up with your own pmd and urologist/GI within 2 days, return to the ER for any new or worsening signs or symptoms. - RAD Interpretation Radiology Orders: CT SCAN OF THE ABDOMEN AND PELVIS WITHOUT ORAL OR IV CONTRAST. CLINICAL INDICATION: Left flank pain. TECHNIQUE: Axial and reformatted sagittal and coronal images of the abdomen pelvis obtained without IV contrast administration. COMPARISON: None. FINDINGS: The visualized lung bases are unremarkable. Normal unenhanced liver. Normal gallbladder and extrahepatic biliary system. Normal unenhanced spleen. Normal pancreas. Normal bilateral adrenal glands. Bilateral nonobstructing renal stones ranging in size between 3 and 7 mm. Normal size of the right kidney. There is no right renal mass. There is no right hydronephrosis. Normal visualized right ureter. Multifocal benign a chronic cortical scarring of the left kidney. There is no left renal mass. There is no left hydronephrosis. Normal visualized left ureter. Normal visualized stomach. Scattered fluid-filled loops of the small intestine. Uncomplicated diverticulosis with moderate amount of fecal residue in the colon. The appendix is visualized and appears normal. There is no demonstrated peritoneal fluid. Normal abdominal aorta. Normal inferior vena cava. Normal retroperitoneum. Normal urinary bladder. There is no pelvic mass lesion or lymphadenopathy. There is no pelvic fluid. Normal abdominal wall. Normal osseous structures. IMPRESSION: Benign chronic left cortical scarring. Bilateral nonobstructing renal stones. Electronically signed on Oct 10, 2018 1:18:22 AM EST by: Luis Portillo M.D., Certified by ABR, MSK, Neuroradiology Account Services Manager: Radiologist - PA / ROUTE DRIVER / Resident Statement MD/DO has reviewed & agrees with the documentation as recorded. Disposition/Present on Arrival - Present on Arrival Any Indicators Present on Arrival: No History of DVT/PE: No History of Uncontrolled Diabetes: No Urinary Catheter: No History of Decub. Ulcer: No History Surgical Site Infection Following: None - Disposition Have Diagnosis and Disposition been Completed?: Yes Diagnosis: Flank pain, Constipation, UTI (urinary tract infection) Disposition: HOME/ ROUTINE Disposition Time: 01:38 Patient Plan: Discharge Condition: IMPROVED Additional Instructions: -Discharge home with motrin, magnesium citrate, continue your antibiotic by your own pmd, follow up with your own pmd and urologist/GI within 2 days, return to the ER for any new or worsening signs or symptoms. Prescriptions: Ibuprofen [Motrin Tab] 600 mg PO QID PRN #30 tab PRN Reason: Other Referrals: Edgardo Suresh MD [Primary Care Provider] - Follow up with primary Greg Polk MD [Staff Provider] - Follow up with primary Mason Montiel MD [Staff Provider] - Follow up with primary Forms: [employer] (Kazakh), WORK NOTE
[2018-10-10 00:40] LABS: URINE BILIRUBIN NEGATIVE (NEGATIVE); URINE BLOOD SMALL (NEGATIVE); URINE GLUCOSE (UA) NEGATIVE (NEGATIVE); URINE LEUKOCYTE ESTERASE TRACE Leu/uL (NEGATIVE); URINE PROTEIN NEGATIVE mg/dL (<30 mg/dL); URINE UROBILINOGEN 0.2 E.U./dL (<1 E.U./dL)
[2018-10-10 00:43] LABS: URINE APPEARANCE SL CLOUDY (CLEAR); URINE COLOR YELLOW (YELLOW)
[2018-10-10 00:47] LABS: ALB/GLOB RATIO 1.4 (1.1-1.8); ALBUMIN 4.3 g/dL (3.0-4.8); ALT/SGPT 21 U/L (7-56); AST/SGOT 30 U/L (14-36); BLOOD UREA NITROGEN 11 mg/dL (7-21); CALCIUM 9.5 mg/dL (8.4-10.5); GFR NON-AFRICAN AMERICAN > 60; LIPASE 90 U/L (23-300)
[2018-10-10 00:48] LABS: HEMOGLOBIN 12.4 g/dL (12.0-16.0); MEAN CELL VOLUME 99.4 fl (80.0-105.0); MEAN CORPUSCULAR HEMOGLOBIN 34.8 pg (25.0-35.0); RBC 3.56 10^6/uL (3.5-6.1); WHITE BLOOD COUNT 4.3 10^3/uL (4.5-11.0)
[2018-10-10 00:49] LABS: BASO % 0.5 % (0.0-3.0); EOS # 0.1 (0.0-0.7); EOS % 2.8 % (1.5-5.0); GRAN # 1.84 (1.4-6.5); GRAN % 43.3 % (50.0-68.0); LYMPH % 46.1 % (22.0-35.0); MEAN PLATELET VOLUME 9.8 fl (7.0-11.0); MONO # 0.3 (0.1-0.6); MONO % 7.3 % (1.0-6.0); RED CELL DISTRIBUTION WIDTH 12.3 % (11.5-14.5)
[2018-10-10] MEDS ORDERED: Magnesium Sulfate 1 gm in D5W 1 GM/100 ML BAG IVPB ONE (00:49)
[2018-10-10 00:50] LABS: BASO # 0.02 K/mm3 (0.0-2.0)
[2018-10-10 00:55] LABS: URINE BACTERIA FEW (NEG)
[2018-10-10 00:57] LABS: TROPONIN I 0.03 ng/mL
[2018-10-10] MEDS ORDERED: Magnesium Citrate Oral SOL (300 ml) PO ONE (01:34)
[2018-10-10 02:35] VITALS: BP 138/86; PULSE 89; TEMP 97.8; O2SAT 97
--- NOTE | 2018-10-10 10:39 | CT ---
Date of service: 10/10/2018 PROCEDURE: CT Abdomen and Pelvis with Oral contrast. HISTORY: Left flank pain x 1 week COMPARISON: None. Comparison made prior CT scan abdomen pelvis 07/06/2018. TECHNIQUE: Contiguous axial images of the abdomen and pelvis. Oral contrast was administered. No IV contrast given. Coronal and Sagittal reformats generated. Radiation dose: Total exam DLP = 290.76 mGy-cm. This CT exam was performed using one or more of the following dose reduction techniques: Automated exposure control, adjustment of the mA and/or kV according to patient size, and/or use of iterative reconstruction technique. FINDINGS: LOWER THORAX: The heart size is within range of normal. No significant pericardial effusion. Tiny hiatal hernia. Lung bases clear. No evidence of basilar pneumothorax or effusion. LIVER: Liver upper limits and normal of size measuring nearly 18 cm in CC dimension. No obvious hepatic mass collection or calcification seen on this noncontrast study. GALLBLADDER AND BILE DUCTS: Gallbladder is incompletely distended which in part accounts for thick-walled appearance. Possibility of inflammatory process cannot be excluded. PANCREAS: Pancreas is not well delineated due to the lack of oral contrast material as well as a paucity of intraperitoneal and retroperitoneal fat. No obvious pancreatic masses collections or calcifications.. SPLEEN: The spleen exhibits normal size and attenuation pattern without masses collections or calcifications. ADRENALS: There are no adrenal lesions. KIDNEYS AND URETERS: Kidneys demonstrate relatively symmetric size. Redemonstrated is a localized area of cortical scarring anterior upper pole left kidney associated with presumed dystrophic type calcification and/or opaque suture material located in in the apex of the cleft. Punctate nonobstructing calcification lower pole collecting system left kidney. Tiny approximately 2 mm nonobstructing calculus of lower pole collecting system right kidney. BLADDER: Urinary bladder appears incompletely distended which in part accounts for slight thick-walled appearance. Correlation with urinalysis recommended.. No evidence of intraluminal urinary bladder calculi. REPRODUCTIVE: Unremarkable. APPENDIX: What appeared may represent the appendix best seen on axial series 3 image number [id number] appears grossly unremarkable with no evidence suggest acute appendicitis.. BOWEL: Evaluation of bowel is limited due the lack of oral contrast material. The stomach is incompletely distended which in part accounts for thick-walled appearance. Gastritis or other intrinsic/invasive wall lesion not excluded. Visualized loops of small bowel exhibit relatively normal contour and caliber. There does appear to be some fecalized content within several loops of small bowel suggesting stasis. No evidence of acute mechanical small bowel obstruction. Large amount of stool seen throughout the colon consistent with fecal retention/constipation. PERITONEUM: Unremarkable. No fluid collection. No free air. LYMPH NODES: Unremarkable. No enlarged lymph nodes. VASCULATURE: Unremarkable. No aortic aneurysm. Very tiny aortic atherosclerotic calcification or mural plaque present. BONES: No fracture or destructive lesion. OTHER FINDINGS: None. IMPRESSION: There are tiny nonobstructing bilateral renal calculi. Cortical scarring upper pole left kidney associate with some dystrophic calcification and/or opaque suture material. Urinary bladder incompletely distended which in part accounts for thick-walled appearance however correlation with urinalysis recommended to exclude cystitis. Findings consistent with constipation.
== END 2018-10-10 01:59 | disposition home or self-care (01) ==
LOC: ED 23:07
DX: K59.00 Constipation, unspecified (principal); N39.0 Urinary tract infection, site not specified; R10.9 Unspecified abdominal pain; F17.210 Nicotine dependence, cigarettes, uncomplicated
CPT/HCPCS: 74176; 80053; 81001; 83690; 83735; 84484; 85025; 87086; 96374; 99283; J1885; J7030

== ENCOUNTER 2019-02-06 10:27 | Emergency (ER) | payer MEDICAID ==
[2019-02-06 10:28] VITALS: BMI 21.2
[2019-02-06 10:41] VITALS: TEMP 98.3; O2SAT 99
[2019-02-06] MEDS ORDERED: Sodium Chloride 0.9% 1,000 ML IV STA (10:48)
--- NOTE | 2019-02-06 10:51 | ED PDOC ---
Arrival/HPI - General Chief Complaint: Female Genitourinary Time Seen by Provider: 02/06/19 10:34 Historian: Patient - History of Present Illness Narrative History of Present Illness (Text): 02/06/19 10:53 38 year old female, with a past medical history of kidney stones, who presents to the emergency department complaining of hematuria onset earlier today. Patient endorses dysuria, described as "pressure" in lower abdomen and reports red blood clot on tissue after urination. Patient reports non radiating left and right sided lower back pain that is exacerbated with urination. Patient endorses chills and non bloody, loose diarrhea. Patient denies any fever, headache, dizziness, nausea, vomiting, chest pain, shortness of breath, or any other symptoms. Patient also denies vaginal bleeding and reports her LNMP was january [id number]. PMD: Dr. Suresh Time/Duration: 24 hours Symptom Onset: Gradual Symptom Course: Unchanged Activities at Onset: Light Context: Home Past Medical History - Provider Review Nursing Documentation Reviewed: Yes - Past History Past History: Non-Contributing - Infectious Disease Hx of Infectious Diseases: None - Tetanus Immunization Tetanus Immunization: Unknown - Past Medical History Past Medical History: No Previous - Cardiac Hx Cardiac Disorders: No - Pulmonary Hx Respiratory Disorders: Yes (SMOKES CIGARETTES) - Neurological Hx Neurological Disorder: Yes Hx Dizziness: Yes Hx Seizures: Yes - HEENT Hx HEENT Disorder: No - Renal Hx Renal Disorder: Yes Hx Kidney Stones: Yes (LITHOTRYPSY) Other/Comment: Left renal cyst - Endocrine/Metabolic Hx Endocrine Disorders: No - Hematological/Oncological Hx Blood Disorders: No - Integumentary Hx Dermatological Disorder: No - Musculoskeletal/Rheumatological Hx Musculoskeletal Disorders: Yes Hx Back Pain: Yes Hx Falls: Yes Hx Fractures: Yes (NOSE) - Gastrointestinal Hx Gastrointestinal Disorders: Yes (H PYLORI,C DIFF,GI BLEED,BLOODY STOOLS,,GASTRITIS) - Genitourinary/Gynecological Hx Genitourinary Disorders: Yes Hx Urinary Tract Infection: Yes - Psychiatric Hx Psychophysiologic Disorder: No Hx Substance Use: No - Surgical History Hx Tubal Ligation: Yes Other/Comment: CYST REMOVED FROM LEFT KIDNEY - Anesthesia Hx Anesthesia: Yes Hx Anesthesia Reactions: No Hx Malignant Hyperthermia: No - Suicidal Assessment Feels Threatened In Home Enviroment: No Family/Social History - Physician Review Nursing Documentation Reviewed: Yes Family/Social History: Unknown Family HX Smoking Status: Heavy Smoker > 10 Cigarettes Daily Hx Alcohol Use: Yes (SOCIAL,WEEKENDS) Hx Substance Use: No Hx Substance Use Treatment: Yes Allergies/Home Meds Allergies/Adverse Reactions: Allergies No Known Allergies Allergy (Verified 02/06/19 10:29) Home Medications: Home Meds Medication Instructions Recorded Confirmed Oxycodone HCl/Acetaminophen 2 tab PO BID 02/06/19 02/06/19 [Percocet 10-325 mg Tablet] Review of Systems - Physician Review All systems were reviewed & negative as marked: Yes - Review of Systems Constitutional: absent: Fevers Respiratory: absent: SOB, Cough Cardiovascular: absent: Chest Pain Gastrointestinal: Diarrhea. absent: Nausea, Vomiting Genitourinary Female: Dysuria, Hematuria Musculoskeletal: Back Pain Neurological: absent: Headache, Dizziness Endocrine: absent: Diaphoresis Physical Exam Vital Signs Reviewed: Yes Vital Signs Temp Pulse Resp BP Pulse Ox 02/06/19 10:30 98.3 F 125 H 16 141/95 H 99 Temperature: Afebrile Blood Pressure: Hypertensive Pulse: Tachycardic Respiratory Rate: Normal Appearance: Positive for: Well-Appearing, Non-Toxic, Comfortable Pain Distress: None Mental Status: Positive for: Alert and Oriented X 3 - Systems Exam Head: Present: Atraumatic, Normocephalic Pupils: Present: PERRL Extroacular Muscles: Present: EOMI Conjunctiva: Present: Normal Mouth: Present: Moist Mucous Membranes Neck: Present: Normal Range of Motion Respiratory/Chest: Present: Clear to Auscultation, Good Air Exchange. No: Respiratory Distress, Accessory Muscle Use Cardiovascular: Present: Regular Rate and Rhythm, Normal S1, S2. No: Murmurs Abdomen: No: Tenderness, Distention, Peritoneal Signs Genitourinary/Pelvic Exam: Present: Other (midline suprapublic tenderness, guarding) Back: Present: Normal Inspection, CVA Tenderness (left sided) Upper Extremity: Present: Normal Inspection. No: Cyanosis, Edema Lower Extremity: Present: Normal Inspection. No: Edema Neurological: Present: Speech Normal Skin: Present: Warm, Dry, Normal Color. No: Rashes Psychiatric: Present: Alert, Oriented x 3, Normal Insight, Normal Concentration Medical Decision Making ED Course and Treatment: 02/06/19 10:48 Impression: 38 year old female presents to the emergency department complaining of hematuria onset earlier today. Differential Diagnosis included but are not limited to: r/o kidney stone v UTI Plan: -- CT a/p -- Labs -- Urine culture -- Urinalysis -- IV Fluids -- Toradol -- Tylenol -- test -- Reassess and disposition Prior Visits: Notes and results from previous visits were reviewed. Progress Notes: 02/06/19 11:42 CT a/p reviewed by radiologist, shows: No evidence of renal or ureteral stone. 02/06/19 11:48 Patient with WBC normal. UTI positive. CT negative for kidney stone. In light of reported chills and left flank pain I will treat with levaquin. There are no contraindications for this medications and the patient tolerated it well in the ED. She will make sure to complete the prescription and f/u with her PMD. She was advised to return to the ED if symptoms worsen or any other concerns. - Scribe Statement The provider has reviewed the documentation as recorded by the Nicolasibmg Rodriguez All medical record entries made by the Nicolasibgm were at my direction and personally dictated by me. I have reviewed the chart and agree that the record accurately reflects my personal performance of the history, physical exam, medical decision making, and the department course for this patient. I have also personally directed, reviewed, and agree with the discharge instructions and disposition. Disposition/Present on Arrival - Present on Arrival Any Indicators Present on Arrival: No History of DVT/PE: No History of Uncontrolled Diabetes: No Urinary Catheter: No History of Decub. Ulcer: No History Surgical Site Infection Following: None - Disposition Have Diagnosis and Disposition been Completed?: Yes Diagnosis: Pyelonephritis Disposition: HOME/ ROUTINE Disposition Time: 11:50 Patient Plan: Discharge Patient Problems: Current Active Problems Problem Status Onset Pyelonephritis Acute Condition: IMPROVED Discharge Instructions (ExitCare): Kidney Infection (DC) Additional Instructions: MONSERRAT MONDRAGON, thank you for letting us take care of you today. Your provider was Jose Juan Driver DO and you were treated for Pyelonephritis. The emergency medical care you received today was directed at your acute symptoms. If you were prescribed any medication, please fill it and take as directed. It may take several days for your symptoms to resolve. Return to the Emergency Department if your symptoms worsen, do not improve, or if you have any other problems. Please contact your doctor or call one of the physicians/clinics you have been referred to that are listed on the Patient Visit Information form that is included in your discharge packet. Bring any paperwork you were given at discharge with you along with any medications you are taking to your follow up visit. Our treatment cannot replace ongoing medical care by a primary care provider outside of the emergency department. Thank you for allowing the [facility] team to be part of your care today. If you had an X-Ray or CT scan: A Radiologist will review the ED reading if any change in treatment is needed we will contact you. If you had a blood, urine, or wound culture: It will take several days for the results, if any change in treatment is needed we will contact you. If you had an STI test: It will take 48 hours for the results. Please call after 1 week if you have not heard back. Prescriptions: Ibuprofen [Motrin] 600 mg PO Q6 PRN #30 tab PRN Reason: Pain, Moderate (4-7) Levofloxacin [Levaquin] 750 mg PO DAILY #6 tablet Referrals: Edgardo Suresh MD [Primary Care Provider] - Follow up with primary Forms: [employer] (Indian), WORK NOTE
[2019-02-06 11:10] VITALS: BP 132/88; PULSE 93; RESP 18
[2019-02-06 11:11] LABS: BASO # 0.03 K/mm3 (0.0-2.0); BASO % 0.3 % (0.0-3.0); EOS # 0.1 (0.0-0.7); EOS % 0.6 % (1.5-5.0); HEMOGLOBIN 12.8 g/dL (12.0-16.0); LYMPH # 1.5 (1.2-3.4); LYMPH % 15.3 % (22.0-35.0); MEAN CELL VOLUME 98.4 fl (80.0-105.0); MEAN CORPUSCULAR HEMOGLOBIN 34.3 pg (25.0-35.0); MEAN CORPUSCULAR HGB CONC 34.9 g/dl (31.0-37.0); MEAN PLATELET VOLUME 9.2 fl (7.0-11.0); MONO # 0.6 (0.1-0.6); MONO % 6.4 % (1.0-6.0); RBC 3.73 10^6/uL (3.5-6.1); RED CELL DISTRIBUTION WIDTH 13.4 % (11.5-14.5); WHITE BLOOD COUNT 9.7 10^3/uL (4.5-11.0)
[2019-02-06 11:17] LABS: URINE BILIRUBIN NEGATIVE (NEGATIVE); URINE BLOOD LARGE (NEGATIVE); URINE GLUCOSE (UA) NEGATIVE (NEGATIVE); URINE LEUKOCYTE ESTERASE SMALL Leu/uL (NEGATIVE); URINE PROTEIN 100 mg/dL (<30 mg/dL); URINE UROBILINOGEN 0.2 E.U./dL (<1 E.U./dL)
[2019-02-06 11:18] LABS: URINE APPEARANCE CLOUDY (CLEAR); URINE COLOR YELLOW (YELLOW)
[2019-02-06 11:21] LABS: ALB/GLOB RATIO 1.5 (1.1-1.8); ALBUMIN 4.6 g/dL (3.0-4.8); ALT/SGPT 45 U/L (7-56); AST/SGOT 65 U/L (14-36); BLOOD UREA NITROGEN 8 mg/dL (7-21); CALCIUM 9.3 mg/dL (8.4-10.5); GFR NON-AFRICAN AMERICAN > 60
[2019-02-06 11:25] LABS: URINE BACTERIA LARGE /hpf; URINE RBC TNTC /hpf (0-2); URINE WBC TNTC /hpf (0-6)
--- NOTE | 2019-02-06 11:40 | CT ---
Date of service: 02/06/2019 PROCEDURE: CT Abdomen and Pelvis without intravenous contrast HISTORY: left flank pain urin symptoms r/o kidney stones COMPARISON: 10/10/2018 TECHNIQUE: Without contrast.. Contrast dose: Radiation dose: Total exam DLP = 315.85 mGy-cm. This CT exam was performed using one or more of the following dose reduction techniques: Automated exposure control, adjustment of the mA and/or kV according to patient size, and/or use of iterative reconstruction technique. FINDINGS: LOWER THORAX: Unremarkable. LIVER: Unremarkable. No gross lesion or ductal dilatation. GALLBLADDER AND BILE DUCTS: Unremarkable. PANCREAS: Unremarkable. No gross lesion or ductal dilatation. SPLEEN: Unremarkable. ADRENALS: Unremarkable. No mass. KIDNEYS AND URETERS: There is a calcification in the left upper pole measuring 11 x 13 mm. This is unchanged. There are no stones seen in the renal collecting systems. There is no evidence of hydronephrosis or perinephric stranding. VASCULATURE: Unremarkable. No aortic aneurysm. No aortic atherosclerotic calcification or mural plaque present. BOWEL: Unremarkable. No obstruction. No gross mural thickening. APPENDIX: Unremarkable. Normal appendix. PERITONEUM: Unremarkable. No free fluid. No free air. LYMPH NODES: Unremarkable. No enlarged lymph nodes. BLADDER: Unremarkable. REPRODUCTIVE: Unremarkable. BONES: No acute fracture. OTHER FINDINGS: None. IMPRESSION: No evidence of renal or ureteral stone
[2019-02-06] MEDS ORDERED: levoFLOXacin 750 MG TAB PO STA (11:43)
== END 2019-02-06 12:06 | disposition home or self-care (01) ==
LOC: ED 10:27
DX: N12 Tubulo-interstitial nephritis, not specified as acute or chronic (principal)
CPT/HCPCS: 74176; 80053; 81001; 81025; 83735; 85025; 87086; 87181; 96374; 99284; J1885; J7030